=== PATIENT | female | born 2000 | race Caucasian/White ===

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

== ENCOUNTER 2020-11-14 22:02 | Emergency (ER) | payer MEDICAID, SELFPAY ==
[2020-11-14 22:15] VITALS: BP 160/92; PULSE 69; RESP 18; TEMP 36.9; O2SAT 97; BMI 39.6
--- NOTE | 2020-11-14 22:26 | XRR_ITS ---
PROCEDURE INFORMATION: Exam: XR Left Wrist Exam date and time: 11/14/2020 10:26 PM Age: 20 years old Clinical indication: Injury or trauma; Other: Pinning injury; Blunt trauma (contusions or hematomas); Elbow and wrist; Left; Patient HX: Patients arm impinged inbetween horse and gate. C/O pain. ; Additional info: Wrist injury and pain TECHNIQUE: Imaging protocol: XR Left wrist. Views: 3 or more views. COMPARISON: No relevant prior studies available. FINDINGS: Bones/joints: Normal. Soft tissues: Normal. XR/XR wrist LT min 3V* [id number] IMPRESSION: No acute findings.
--- NOTE | 2020-11-14 22:26 | XRR_ITS ---
PROCEDURE INFORMATION: Exam: XR Left Elbow Exam date and time: 11/14/2020 10:26 PM Age: 20 years old Clinical indication: Injury or trauma; Other: Pinning injury; Blunt trauma (contusions or hematomas); Elbow and wrist; Left; Patient HX: Patients arm impinged inbetween horse and gate. C/O pain. ; Additional info: Elbow pain and injury TECHNIQUE: Imaging protocol: XR Left elbow. Views: 3 or more views. COMPARISON: No relevant prior studies available. FINDINGS: Bones/joints: Normal. Soft tissues: Normal. XR/XR elbow LT min 3V* [id number] IMPRESSION: No acute findings.
--- NOTE | 2020-11-15 01:29 | XRR_ITS ---
PROCEDURE INFORMATION: Exam: XR Left Forearm Exam date and time: 11/15/2020 1:29 AM Age: 20 years old Clinical indication: Injury or trauma; Other: Impingement; Crushing; Arm, lower; Left; Patient HX: Arm pinned inbetween horse and gate. C/O mid forarm pain. TECHNIQUE: Imaging protocol: XR Left forearm. Views: 2 views. COMPARISON: CR ( EX, ) 11/14/2020 10:36 PM FINDINGS: Bones/joints: No acute fracture or dislocation. Soft tissues: Normal. XR/XR forearm LT 2V [id number] IMPRESSION: No acute fracture or dislocation.
--- NOTE | 2020-11-15 01:31 | W.ED.EXTPRO ---
HPI - Extremity Problem General: Chief complaint: Extremity Injury, Upper Stated complaint: LUE INJURY Time Seen by Provider: 11/15/20 00:34 Source: patient Mode of arrival: ambulatory Limitations: no limitations History of Present Illness: HPI Narrative: 20-year-old female states that horse had smashed her into a gait roughly 3 to 4 hours ago. States she has pain to her left wrist elbow and forearm. Does have some bruising to her forearm. She has full range of motion. States pain is 7 out of 10 worse with movement. Denies any other injuries. Associated symptoms: Deny chest pain, fever(s) or rash Review of Systems Const: Denies: fever(s), chills, body aches or change in appetite Eyes: Denies: blurry vision or eye discomfort ENMT: Denies: throat pain or dental pain Card: Denies: chest pain Resp: Denies: dyspnea GI: Denies: abdominal pain, nausea, vomiting or diarrhea : Denies: dysuria Musc: Reports: extremity pain Skin/Breast: Denies: rash Neuro: Denies: headache(s) Psych: Denies: depression Alfred/Lymph: Denies: easy bruising All/Imm: Denies: urticaria Physical Exam Const: COMMON NORMALS: no acute distress, patient oriented x3 and healthy appearing HENMT: COMMON NORMALS: normocephalic and atraumatic HEAD & SCALP: normocephalic and atraumatic Eye: COMMON NORMALS: Equal, round and reactive pupils present and EOMs intact bilaterally PUPIL: Yes Equal, round and reactive pupils present Neck/C-Spine: COMMON NORMALS: full ROM and supple Chest: COMMONS NORMALS: normal inspection of the chest and normal palpation of entire chest wall Resp: COMMON NORMALS: normal respiratory effort, No retractions, No use of accessory muscles and clear to auscultation bilaterally AUSCULTATION: clear to auscultation bilaterally Cardio: COMMON NORMALS: regular rate, regular rhythm and No murmurs present (Cardio) RATE: regular rate RHYTHM: regular rhythm GI: COMMON NORMALS: Normal to inspection, nondistended, normoactive bowel sounds present, Soft to palpation, non-tender and no masses PALPATION: Yes Soft to palpation Extremity: COMMON NORMALS: normal to inspection and full ROM OTHER: Slight bruising to forearm with some tenderness to touch no obvious deformity full range of motion Neuro: COMMON NORMALS: patient oriented x3, moves all extremities and no focal motor deficits Psych: COMMON NORMALS: mental status grossly normal, Normal thought process present and cooperative THOUGHT PROCESS: Normal thought process present Skin: COMMON NORMALS: no rashes or lesions noted and no wounds GENERAL SKIN EXAM: no rashes or lesions noted Course Vital Signs: Vital signs: Vital Signs Temperature 98.4 F 11/14/20 22:15 Pulse Rate 69 11/14/20 22:15 Respiratory Rate 18 11/14/20 22:15 Blood Pressure 160/92 11/14/20 22:15 Pulse Oximetry 97 11/14/20 22:15 MDM - Extremity (Nontraumatic) MDM Narrative: Medical decision making narrative: Patient presents with a bruise to her forearm. X-ray shows no fracture. We will Tonio wrap and place her on Naprosyn. She is stable for discharge and follow-up with PCP and return if worsening. Imaging Data^: X-ray left wrist: Attestation: I personally reviewed and interpreted this imaging study as follows: My impression: No acute ab malady X-ray left elbow: Attestation: I personally reviewed and interpreted this imaging study as follows: My impression: No acute abnormality X-ray left forearm: Attestation: I personally reviewed and interpreted this imaging study as follows: My impression: No acute abnormality Discharge Plan Discharge Patient Disposition: Home Clinical Impression: Contusion of forearm, left Qualifiers: Encounter type: initial encounter Qualified Code(s): S50.12XA - Contusion of left forearm, initial encounter Condition: Stable Prescriptions: New Naprosyn 500 mg tablet 500 mg PO BID PRN (Reason: pain) Qty: 20 RF: 0 Discharge Orders: Discharge ED (Routine); Ordered 11/15/20 Ordered By: Lindsay Gomez Referrals: Debi Umanzor FNP [Primary Care Provider] - 1-3 days Discharge Diet: Advance as tolerated Discharge Activity: Resume usual activity Patient Instructions: Contusion in Adults (ED) Coding Level of Care Code ED Home Health Cna for [facility]ac[facility] Ahuja Exam Comprehensive
[2020-11-15] MEDS: HYDROcodone-acetaminophen 7.5-325 mg Tablet 1 TAB PO (01:52)
[2020-11-15 02:30] VITALS: BP 117/77; PULSE 65; RESP 16; TEMP 36.9; O2SAT 97
== END 2020-11-15 02:30 | disposition home or self-care (01) ==
PROVIDERS: Emergency Provider Emergency Medicine; PCP Nurse Practitioner Family
DX: S50.12XA Contusion of left forearm, initial encounter (principal); W55.19XA Other contact with horse, initial encounter
CPT/HCPCS: 73080; 73090; 73110; 99283

== ENCOUNTER 2021-04-05 15:13 | Outpatient (CLI) | payer OTHER, MEDICAID, SELFPAY ==
--- NOTE | 2021-04-05 15:28 | US_ITS ---
WS: [id number] EARLY OBSTETRICAL ULTRASOUND (<14 WEEKS). HISTORY: VAGINAL BLEEDING, FIRST TRIMESTER COMPARISON: None available. Single intrauterine gestational sac is identified. Cardiac activity at 176 BPM. [place]-rump length dirk sures 2.4 cm which corresponds to a gestation of 9w1d. Normal-appearing yolk sac and amnion demonstra candelario. No subchorionic hemorrhage. No free fluid. Normal size ovaries with no mass. Small corpus luteum cyst associated with the LEFT ovary measures 1. 7 x 1.7 x 1.7 cm. Normal vascularity to both ovaries. US/US OB <= 14 weeks fetus [id number] IMPRESSION: 1. Single intrauterine gestation of 9 weeks 1 day with an EDC of 11/07/2021. 2. No complications. Normal heart rate.
== END 2021-04-05 15:14 | disposition home or self-care (01) ==
LOC: US 15:16
PROVIDERS: PCP Nurse Practitioner Family; Visit Provider Family Medicine
DX: O46.91 Antepartum hemorrhage, unspecified, first trimester (principal)
CPT/HCPCS: 76801

== ENCOUNTER 2021-04-22 08:51 | Emergency (ER) | payer OTHER, MEDICAID, SELFPAY ==
[2021-04-22 09:17] VITALS: BP 154/96; PULSE 123; RESP 18; O2SAT 100; BMI 41.5
[2021-04-22 09:22] VITALS: BP 106/85; PULSE 110; RESP 18; O2SAT 100
--- NOTE | 2021-04-22 09:36 | W.ED.GENADLT ---
HPI - General Adult General: Chief complaint: General Medical Stated complaint: 12 WKS PREG, H/A, N/V, HOT FLASHES Time Seen by Provider: 04/22/21 08:58 History of Present Illness: HPI narrative: 20-year-old female presents emergency room complaining of nausea and vomitingAlso having some hot flashes and headache. Per her report she is she is approximately 12 weeks . She denies any abdominal pain no vaginal bleeding or discharge no dysuria urgency or frequency she generally not felt well on and off last couple of days had hot flashes she is treated with Tylenol and showers that seems to have helped initially now she is having nausea and vomiting that is persisting. She denies hematochezia melena hematemesis coffee-ground emesis. Onset (ago): hour(s) Severity: mild Relieving factors: none Exacerbating factors: none Associated symptoms: Reports decreased appetite, malaise, nausea and vomiting; Deny chest pain, confusion, cough, diaphoresis, dyspnea, fevers/chills, headache(s), rash, palpitations, seizures, short of breath, syncope or weakness Treatments prior to arrival: none Review of Systems Const: Reports: malaise; Denies: diaphoresis ENMT: Denies: throat pain, ear or mastoid pain, nasal discharge or nasal congestion Card: Denies: chest pain, palpitations or syncope Resp: Denies: dyspnea GI: Reports: nausea and vomiting : Denies: flank pain, difficulty voiding, dysuria, urinary frequency or urinary urgency Skin/Breast: Denies: rash Neuro: Denies: headache(s) or confusion Physical Exam Const: COMMON NORMALS: no acute distress GENERAL APPEARANCE: cooperative and comfortable ORIENTATION/CONSCIOUSNESS: Yes awake, Yes oriented to person, Yes oriented to place and Yes oriented to time HENMT: COMMON NORMALS: normocephalic, atraumatic and hearing grossly normal bilaterally HEAD & SCALP: normocephalic and atraumatic Neck/C-Spine: COMMON NORMALS: no JVD Resp: COMMON NORMALS: normal respiratory effort, No retractions, No use of accessory muscles and clear to auscultation bilaterally AUSCULTATION: clear to auscultation bilaterally Cardio: COMMON NORMALS: no JVD, regular rate, regular rhythm and No murmurs present (Cardio) RATE: regular rate RHYTHM: regular rhythm GI: COMMON NORMALS: Soft to palpation and No hepatosplenomegaly present AUSCULTATION: Yes normoactive bowel sounds PALPATION: Yes Soft to palpation, No Tenderness to palpation present (GI), No Guarding due to palpation present (GI) and Yes No hepatosplenomegaly present Extremity: COMMON NORMALS: normal to inspection, capillary refill normal, no clubbing, cyanosis or edema, no calf tenderness and no pedal edema Neuro: SENSORIUM/ORIENTATION: Yes oriented to person, Yes oriented to place and Yes oriented to time Skin: COMMON NORMALS: no rashes or lesions noted GENERAL SKIN EXAM: no rashes or lesions noted Course Vital Signs: Vital signs: Vital Signs Pulse Rate 95 04/22/21 12:20 Respiratory Rate 18 04/22/21 12:20 Blood Pressure 130/75 04/22/21 12:20 Pulse Oximetry 100 04/22/21 12:20 MDM - General Adult MDM Narrative: Medical decision making narrative: Improved with fluids. We will switch her to diclegis and use promethazine as needed start with 2 tablets at at bedtime of the Diclegis. Clear liquid diet for next 24 to 48 hours and advance as tolerated follow-up with her primary care doctor next week return if has further problems. Lab Data: Labs: Lab Results 04/22/21 04/22/21 04/22/21 10:00 10:00 10:05 WBC 12.0 10^3/uL 10^3 /uL (4.5-13.0) RBC 4.30 10^6/uL 10^6 /uL (4.1-5.3) Hgb 11.7 g/dL g/dL (11.5-15.3) Hct 35.1 % L % (37.0-47.0) MCV 81.6 fl fl (81-99) MCH 27.2 pg L pg (28.0-34.0) MCHC 33.3 g/dL g/dL (30.0-36.0) RDW 13.9 % % (12.1-15.1) Plt Count 360 10^3/cmm 10^3 /cmm (130-400) MPV 9.0 fL fL (7.4-10.4) Neut % (Auto) 73.4 % % Lymph % (Auto) 18.0 % % [place] % (Auto) 6.0 % % Eos % (Auto) 1.8 % % Baso % (Auto) 0.3 % % Neut # (Auto) 8.81 10^3/uL H 10 ^3/uL (1.8-8.0) Lymph # (Auto) 2.2 10^3/uL 10^3/ uL (1.5-6.5) [place] # (Auto) 0.7 10^3/uL 10^3/ uL (0.2-0.9) Eos # (Auto) 0.2 10^3/uL 10^3/ uL (0.0-0.8) Baso # (Auto) 0.0 10^3/uL 10^3/ uL (0.0-0.1) Nucleated RBC % (a uto) 0 % % Nucleated RBCs # 0.0 /100WBC /100W BC Sodium 136 mmol/L mmol/L (136-145) Potassium 3.7 mmol/L mmol/L (3.5-5.1) Chloride 99 mmol/L mmol/L (98-107) Carbon Dioxide 25 mmol/L mmol/L (22-29) Anion Gap 15.7 (5-19) BUN 6 mg/dL mg/dL (6-20) Creatinine 0.4 mg/dL L mg/dL (0.5-0.9) GFR Calculation 203.5 mL/min H mL /min (90-130) Glucose 86 mg/dL mg/dL (65-115) Calculated Osmolal ity 279 mOsm/kg L mOs m/kg (285-295) Calcium 9.0 mg/dL mg/dL (8.5-10.5) Total Bilirubin 0.3 mg/dL mg/dL (0.15-1.2) AST 16 U/L U/L (0-32) ALT 23 U/L U/L (0-33) Alkaline Phosphata se 106 IU/L H IU/L (35-105) Total Protein 6.9 g/dL g/dL (6.6-8.7) Albumin 4.1 g/dL g/dL (3.5-5.2) Globulin 2.8 g/dL g/dL (1.3-4.6) Urine Color Straw (Yellow) Urine Appearance Hazy A (CLEAR) Urine pH 8 H (5-7) Ur Specific Gravit y 1.015 (1.005-1.030) Urine Protein Neg (Negative) Urine Glucose (UA) Norm (Normal) Urine Ketones Negative (Negative) Urine Blood Neg (Negative) Urine Nitrate Negative (Negative) Urine Bilirubin Neg (Negative) Prot Sulfosalicyli c Acd Negative (Negative) Urine Urobilinogen Norm mg/dL mg/dL (Negative) Ur Leukocyte Melisa ase Negative (Negative) Urine RBC None /hpf /hpf (0-2) Urine WBC Rare /hpf /hpf (0-5) Ur Squamous Epith Cells 0-4 /hpf H /hpf (0-5) Amorphous Sediment 3+ /hpf /hpf Urine Bacteria Trace /hpf /hpf (NONE) Discharge Plan Discharge Patient Disposition: Home Clinical Impression: Hyperemesis gravidarum Condition: Stable Prescriptions: New promethazine 25 mg tablet 25 mg PO Q6H PRN (Reason: nausea and vomiting) Qty: 20 RF: 0 Diclegis 10-10 mg tablet,delayed release (DR/EC) 2 tab PO .qhs Qty: 60 RF: 0 Discontinued naproxen [Naprosyn] 500 mg tablet 500 mg PO BID PRN (Reason: pain) Qty: 20 RF: 0 Discharge Orders: Discharge ED (Routine); Ordered 04/22/21 Ordered By: Fermín Bowens Referrals: Debi Umanzor FNP [Primary Care Provider] - Discharge Diet: Clear Liquid Discharge Activity: Increase activity as tolerated Patient Instructions: Opioid Safety Activity Restrictions/Additional Instructions: Clear liquid diet for 24 to 48 hours and advance as tolerated. Follow-up with your obstetrics physician within the next week. Coding Level of Care Code ED [employer] for [employer] Fwd Exam Comprehensive
[2021-04-22 10:33] LABS: Basophils % 0.3 %; Eosinophils # 0.2 10^3/uL (0.0-0.8); Eosinophils % 1.8 %; Hematocrit 35.1 % (37.0-47.0); Hemoglobin 11.7 g/dL (11.5-15.3); Lymphocytes # 2.2 10^3/uL (1.5-6.5); Mean Corpuscular HGB Conc 33.3 g/dL (30.0-36.0); Mean Corpuscular Hemoglobin 27.2 pg (28.0-34.0); Mean Corpuscular Volume 81.6 fl (81-99); Monocytes # 0.7 10^3/uL (0.2-0.9); Neutrophils # 8.81 10^3/uL (1.8-8.0); Neutrophils % 73.4 %; Nucleated Red Blood Cells % 0 %; Platelet Count 360 10^3/cmm (130-400); Red Cell Distribution Width 13.9 % (12.1-15.1)
[2021-04-22] MEDS: sodium chloride 0.9% 1,000 ML 999 ML IV ×2 (10:40→12:14)
[2021-04-22] MEDS: promethazine 25 mg/mL SDV 1 mL IM (10:40)
[2021-04-22 10:44] LABS: Bilirubin Urine Neg (Negative); Blood Urine Neg (Negative); Glucose Urine UA Norm (Normal); Ketones Urine Negative (Negative); Nitrate Urine Negative (Negative); Protein Urine Neg (Negative); Specific Gravity, Urine 1.015 (1.005-1.030); Sulfosalicylic Acid Urine Negative (Negative); Urine Appearance Hazy (CLEAR); Urine Color Straw (Yellow); pH Urine 8 (5-7)
[2021-04-22 10:45] LABS: Add Urine Culture? No; Add Urine Microscopic? YES; Amorphous Sediment Urine 3+ /hpf; Bacteria Urine TRACE /hpf; Leukocyte Esterase Urine Negative (Negative); Squamous Epithelial Cell Urine 0-4 /hpf (0-5); Urobilinogen Urine Norm (Negative); WBC Urine RARE /hpf (0-5)
[2021-04-22 10:51] LABS: Alanine Aminotransferase 23 U/L (0-33); Albumin Level 4.1 g/dL (3.5-5.2); Alkaline Phosphatase 106 IU/L (35-105); Anion Gap 15.7 (5-19); Aspartate Amino Transferase 16 U/L (0-32); Blood Urea Nitrogen 6 mg/dL (6-20); Carbon Dioxide 25 mmol/L (22-29); Chloride 99 mmol/L (98-107); Globulin 2.8 g/dL (1.3-4.6); Glomerular Filtration Rate 203.5 mL/min (90-130); Glucose 86 mg/dL (65-115); Osmolality Calculated 279 mOsm/kg (285-295); Potassium 3.7 mmol/L (3.5-5.1); Sodium 136 mmol/L (136-145); Total Bilirubin 0.3 mg/dL (0.15-1.2); Total Protein 6.9 g/dL (6.6-8.7)
[2021-04-22 12:20] VITALS: BP 130/75; PULSE 95; RESP 18; O2SAT 100
== END 2021-04-22 13:01 | disposition home or self-care (01) ==
PROVIDERS: Emergency Provider Family Medicine; PCP Nurse Practitioner Family
DX: O21.0 Mild hyperemesis gravidarum (principal); Z3A.12 12 weeks gestation of pregnancy
CPT/HCPCS: 80053; 81001; 85025; 96360; 96372; 99283; J2550; J7030

== ENCOUNTER 2021-05-09 16:45 | Emergency (ER) | payer MEDICAID, SELFPAY ==
[2021-05-09 16:56] VITALS: BP 119/80; PULSE 86; RESP 15; TEMP 36.8; O2SAT 97; BMI 42.5
--- NOTE | 2021-05-09 17:13 | W.ED.NAVMDI ---
HPI - Nausea/Vomiting/Diarrhea General: Chief complaint: Nausea/Vomiting/Diarrhea Stated complaint: 14 WKS PREG VOMITING 6 TIMES IN 3 HRS Time Seen by Provider: 05/09/21 17:09 History of Present Illness: HPI Narrative: Patient is a 20-year-old female at 14 weeks gestation and comes to the ED with nausea and vomiting. She was seen in the ED on April 22 for same complaint and diagnosed with hyperemesis gravidarum. Symptoms started yesterday. She threw up right before going to bed last night. She woke up this morning and had nausea and vomiting and has not been able to keep any food or fluids down. Denies any other symptoms such as fever, chills, abdominal pain, upper respiratory symptoms, chest pain, bladder or bowel symptoms. Patient denies any vaginal bleeding or vaginal discharge. She denies any related concerns. Associated nausea: Yes Associated symtoms: Reports nausea; Denies change in vision, chest pain, dysuria, fatigue, headache(s) or palpitations Review of Systems Const: Denies: fever(s), chills or fatigue Eyes: Denies: change in vision or eye discomfort ENMT: Denies: throat pain, odynophagia, nasal discharge or nasal congestion Card: Denies: chest pain, palpitations, edema, swelling of feet/ankles, dyspnea on exertion or orthopnea Resp: Denies: dyspnea, productive cough or non-productive cough GI: Reports: nausea and vomiting; Denies: abdominal pain, diarrhea, constipation or hematochezia : Denies: flank pain, dysuria or hematuria Musc: Denies: neck pain, back pain or extremity swelling Skin/Breast: Denies: rash or new lesions Neuro: Denies: headache(s), numbness in extremities or weakness in extremities Physical Exam Const: COMMON NORMALS: no acute distress, patient oriented x3 and alert GENERAL APPEARANCE: cooperative and comfortable HENMT: COMMON NORMALS: normocephalic HEAD & SCALP: normocephalic MOUTH: Normal oral and palatal mucosa present THROAT: posterior oropharynx normal and uvula midline Neck/C-Spine: COMMON NORMALS: supple GENERAL: Yes normal visual inspection Resp: COMMON NORMALS: normal respiratory effort, No retractions, No use of accessory muscles and clear to auscultation bilaterally AUSCULTATION: clear to auscultation bilaterally Cardio: COMMON NORMALS: regular rate, regular rhythm, S1 normal heart sound present, S2 normal heart sound present, No gallops present (Cardio), No clicks present (Cardio), No murmurs present (Cardio) and Peripheral pulses 2+ throughout RATE: regular rate RHYTHM: regular rhythm HEART SOUNDS: S1 normal heart sound present and S2 normal heart sound present PERIPHERAL PULSES: Peripheral pulses 2+ throughout GI: COMMON NORMALS: Normal to inspection, nondistended, normoactive bowel sounds present, Soft to palpation, non-tender and no masses PALPATION: Yes Soft to palpation : COMMON NORMALS: Yes no CVA tenderness BLADDER/KIDNEY EXAM: Yes no CVA tenderness Back/Pelvis: COMMON NORMALS: no CVA tenderness Extremity: COMMON NORMALS: normal to inspection Neuro: COMMON NORMALS: patient oriented x3 and moves all extremities SENSORIUM/ORIENTATION: Yes alert Skin: GENERAL SKIN EXAM: dry skin Course ED course: heart tones were detected with doppler- heart rate was at 128. Reevaluation(s): Reevaluation #1: Patient says her nausea and vomiting are improved and controlled now after getting IV fluids and Reglan. Patient was able to tolerate p.o. crackers and Sprite while here in the ED. She had no other episodes of emesis since getting fluids and nausea meds. Patient appears stable for discharge home and is ready to go home and rest. Time: 20:00 Vital Signs: Vital signs: Vital Signs Temperature 98.4 F 05/09/21 20:19 Pulse Rate 84 05/09/21 20:19 Respiratory Rate 18 05/09/21 20:19 Blood Pressure 118/67 05/09/21 20:19 Pulse Oximetry 98 05/09/21 20:19 MDM - Nausea/Vomiting/Diarrhea MDM Narrative: Medical decision making narrative: Patient is a 20-year-old female comes to the ED with nausea and vomiting. She is 14 weeks and was seen here back on April 22 and was diagnosed with hyperemesis gravidarum. Today she woke up and was unable to keep any food or fluids down and had multiple episodes of emesis. Denies any abdominal pain, vaginal bleeding, vaginal discharge. Vitals are stable. Exam of patient is benign and Doppler was used and heart tones were detected at a rate of around 128 bpm. White blood cell count 16.6 with rest of CBC and CMP were unremarkable. UA showed no signs of any infection. Patient was given 1 L IV fluids and Reglan and her symptoms improved greatly. She was given some p.o. crackers and fluids and she was able to keep those down and had no other episodes of emesis since being treated here in the ED. Patient was stable for discharge and diagnosed with hyperemesis gravidarum. She has a prescription for promethazine at home that she can use for any nausea. She was told to follow-up with her PCP or OB doctor in the next week for reevaluation. Return to ED precautions given. Patient understood and agreed with plan. Lab Data: Attestation: I reviewed the patient's lab results. Labs: Lab Results 05/09/21 05/09/21 05/09/21 17:22 17:22 19:34 WBC 16.6 10^3/uL H 10 ^3/uL (4.5-13.0) RBC 4.37 10^6/uL 10^6 /uL (4.1-5.3) Hgb 12.0 g/dL g/dL (11.5-15.3) Hct 35.3 % L % (37.0-47.0) MCV 80.8 fl L fl (81-99) MCH 27.5 pg L pg (28.0-34.0) MCHC 34.0 g/dL g/dL (30.0-36.0) RDW 13.9 % % (12.1-15.1) Plt Count 381 10^3/cmm 10^3 /cmm (130-400) MPV 8.8 fL fL (7.4-10.4) Neut % (Auto) 75.2 % % Lymph % (Auto) 17.7 % % [place] % (Auto) 4.9 % % Eos % (Auto) 1.3 % % Baso % (Auto) 0.3 % % Neut # (Auto) 12.50 10^3/uL H 1 0^3/uL (1.8-8.0) Lymph # (Auto) 2.9 10^3/uL 10^3/ uL (1.5-6.5) [place] # (Auto) 0.8 10^3/uL 10^3/ uL (0.2-0.9) Eos # (Auto) 0.2 10^3/uL 10^3/ uL (0.0-0.8) Baso # (Auto) 0.1 10^3/uL 10^3/ uL (0.0-0.1) Nucleated RBC % (a uto) 0 % % Nucleated RBCs # 0.0 /100WBC /100W BC Sodium 137 mmol/L mmol/L (136-145) Potassium 3.5 mmol/L mmol/L (3.5-5.1) Chloride 102 mmol/L mmol/L (98-107) Carbon Dioxide 19 mmol/L L mmol/ L (22-29) Anion Gap 19.5 H (5-19) BUN 6 mg/dL mg/dL (6-20) Creatinine 0.3 mg/dL L mg/dL (0.5-0.9) GFR Calculation 283.6 mL/min H mL /min (90-130) Glucose 84 mg/dL mg/dL (65-115) Calculated Osmolal ity 281 mOsm/kg L mOs m/kg (285-295) Calcium 8.6 mg/dL mg/dL (8.5-10.5) Total Bilirubin 0.2 mg/dL mg/dL (0.15-1.2) AST 12 U/L U/L (0-32) ALT 17 U/L U/L (0-33) Alkaline Phosphata se 95 IU/L IU/L (35-105) Total Protein 7.4 g/dL g/dL (6.6-8.7) Albumin 4.1 g/dL g/dL (3.5-5.2) Globulin 3.3 g/dL g/dL (1.3-4.6) Urine Color Yellow (Yellow) Urine Appearance Clear (CLEAR) Urine pH 5 (5-7) Ur Specific Gravit y 1.005 (1.005-1.030) Urine Protein Neg (Negative) Urine Glucose (UA) Norm (Normal) Urine Ketones Negative (Negative) Urine Blood Neg (Negative) Urine Nitrate Negative (Negative) Urine Bilirubin Neg (Negative) Urine Urobilinogen Norm mg/dL mg/dL (Negative) Ur Leukocyte Melisa ase Negative (Negative) Discharge Plan Discharge Patient Disposition: Home Clinical Impression: Hyperemesis gravidarum Condition: Stable Prescriptions: No Action promethazine 25 mg tablet 25 mg PO Q6H PRN (Reason: nausea and vomiting) Qty: 20 RF: 0 Diclegis 10-10 mg tablet,delayed release (DR/EC) 2 tab PO .qhs Qty: 60 RF: 0 Discharge Orders: Discharge ED (Routine); Ordered 05/09/21 Ordered By: Jesus Lopez Referrals: Debi Umanzor FNP [Primary Care Provider] - Discharge Diet: Regular Discharge Activity: Increase activity as tolerated Patient Instructions: Hyperemesis Gravidarum (ED) Activity Restrictions/Additional Instructions: Follow-up with medical provider as directed in 5 to 7 days for reevaluation. Continue drinking plenty of fluids and staying hydrated. Take medications as prescribed. Return to the ER or your medical provider if condition worsens. Please read and understand discharge instructions. Thank you for choosing [facility] for your healthcare needs today. Please realize this is an emergency room and that we are providing you with a medical screening exam and this may not be complete and all inclusive of all the testing and or work up that you may need to determine your ailment or severity of your illness. It is very important that you follow up as instructed or that you return to the Emergency Department should you have concerns or if your condition changes or worsens in any way. Coding Level of Care Code ED [employer] for [employer] Fwd Exam Comprehensive
[2021-05-09 17:31] LABS: Basophils # 0.1 10^3/uL (0.0-0.1); Basophils % 0.3 %; Eosinophils # 0.2 10^3/uL (0.0-0.8); Eosinophils % 1.3 %; Hematocrit 35.3 % (37.0-47.0); Lymphocytes # 2.9 10^3/uL (1.5-6.5); Lymphocytes % 17.7 %; Mean Corpuscular Hemoglobin 27.5 pg (28.0-34.0); Mean Corpuscular Volume 80.8 fl (81-99); Mean Platelet Volume 8.8 fL (7.4-10.4); Monocytes # 0.8 10^3/uL (0.2-0.9); Monocytes % 4.9 %; Neutrophils % 75.2 %; Nucleated Red Blood Cells % 0 %; Platelet Count 381 10^3/cmm (130-400); Red Blood Count 4.37 10^6/uL (4.1-5.3); Red Cell Distribution Width 13.9 % (12.1-15.1); White Blood Count 16.6 10^3/uL (4.5-13.0)
[2021-05-09] MEDS: metoclopramide 5 mg/mL SDV 2 mL 10 MG IVP (17:36)
[2021-05-09] MEDS: sodium chloride 0.9% 1,000 ML 999 ML IV ×2 (17:36→19:16)
[2021-05-09 17:55] LABS: Alanine Aminotransferase 17 U/L (0-33); Albumin Level 4.1 g/dL (3.5-5.2); Alkaline Phosphatase 95 IU/L (35-105); Anion Gap 19.5 (5-19); Aspartate Amino Transferase 12 U/L (0-32); Blood Urea Nitrogen 6 mg/dL (6-20); Calcium 8.6 mg/dL (8.5-10.5); Carbon Dioxide 19 mmol/L (22-29); Chloride 102 mmol/L (98-107); Globulin 3.3 g/dL (1.3-4.6); Glomerular Filtration Rate 283.6 mL/min (90-130); Glucose 84 mg/dL (65-115); Osmolality Calculated 281 mOsm/kg (285-295); Potassium 3.5 mmol/L (3.5-5.1); Sodium 137 mmol/L (136-145); Total Bilirubin 0.2 mg/dL (0.15-1.2); Total Protein 7.4 g/dL (6.6-8.7)
--- NOTE | 2021-05-09 19:15 | PC.NURSE ---
patient given shelton and crackers for PO challenge. Patient denies nausea/vomiting episodes at this time.
[2021-05-09 19:41] LABS: Add Urine Microscopic? NO; Charge for UA Resulting for Rev
[2021-05-09 19:46] LABS: Bilirubin Urine Neg (Negative); Blood Urine Neg (Negative); Glucose Urine UA Norm (Normal); Ketones Urine Negative (Negative); Leukocyte Esterase Urine Negative (Negative); Nitrate Urine Negative (Negative); Protein Urine Neg (Negative); Specific Gravity, Urine 1.005 (1.005-1.030); Urine Appearance Clear (CLEAR); Urine Color Yellow (Yellow); Urobilinogen Urine Norm (Negative); pH Urine 5 (5-7)
[2021-05-09] MEDS: ondansetron 2 mg/ML SDV 2 mL 4 MG IVP (20:17)
[2021-05-09 20:19] VITALS: BP 118/67; PULSE 84; PULSE 86; RESP 18; TEMP 36.9; O2SAT 98
== END 2021-05-09 20:21 | disposition home or self-care (01) ==
PROVIDERS: Physician Assistant; Emergency Provider Physician Assistant; PCP Nurse Practitioner Family
DX: O21.0 Mild hyperemesis gravidarum (principal); Z3A.14 14 weeks gestation of pregnancy
CPT/HCPCS: 80053; 81003; 85025; 96361; 96374; 96375; 99283; J2405; J2765; J7030

== ENCOUNTER 2021-08-06 09:30 | Outpatient (CLI) | payer MEDICAID, SELFPAY ==
[2021-08-06 09:30] VITALS: BMI 43.4
[2021-08-06 10:03] VITALS: BP 120/74; PULSE 96
[2021-08-06 10:13] VITALS: BP 132/71; PULSE 95
[2021-08-06 10:25] LABS: Actim Prom Negative
[2021-08-06 10:28] VITALS: BP 121/61; PULSE 91
== END 2021-08-06 10:50 | disposition home or self-care (01) ==
LOC: OPOB 09:36 → OBGYN 09:37
PROVIDERS: PCP Nurse Practitioner Family; Visit Provider Family Medicine
DX: O26.899 Other specified pregnancy related conditions, unspecified trimester (principal); Z3A.00 Weeks of gestation of pregnancy not specified
CPT/HCPCS: 59025; 84112; 99211

== ENCOUNTER 2021-08-29 06:42 | Outpatient (CLI) | payer MEDICAID, SELFPAY ==
--- NOTE | 2021-08-29 07:03 | US_ITS ---
WS: [id number] ULTRASOUND OB FOCUSED HISTORY: F/U US FOR LOW LYING Placenta, facial PROFILE, SPINE, COMPARISON: 06/21/2021 Single intrauterine gestation is identified in cephalic position. The cervix is closed at 3.0 cm. Fet al profile continues to be limited. Reevaluation of the spine demonstrates no abnormality but a lso limited. There is a three-vessel cord. Placenta ends well above the internal cervical os. Placent a is posterior. Visually the amount of amniotic fluid is normal. Facial profile obscured by position of the fetus. heart rate at 144 BPM. US/[place] [id number] IMPRESSION: 1. Continued reevaluation of the anatomy due to body habitus. 2. Three-vessel cord is identified. 3. Placenta posterior with no previa or low-lying placenta. 4. No spine abnormality detected but limited. Facial profile not visuali zed.
== END 2021-08-29 06:43 | disposition home or self-care (01) ==
LOC: RAD 06:42
PROVIDERS: PCP Nurse Practitioner Family; Visit Provider Family Medicine
DX: O44.00 Complete placenta previa NOS or without hemorrhage, unspecified trimester (principal)
CPT/HCPCS: 76816

== ENCOUNTER 2021-10-19 06:00 | Day surgery (SDC) | payer OTHER, MEDICAID, SELFPAY ==
--- NOTE | 2021-10-19 14:25 | P.ANESASSM_ITS ---
Pre-Anesthetic Assessment Height/Weight: Height 1.55 m Preop Diagnosis: Planning of labor analgesia Labor epidural Familial anesthetic complications: None Was Beta Tori taken within 24 hours: N/A Was Clonidine taken within 24 hours: N/A Last intake: Full stomach Social No alcohol and No tobacco Exam alert, oriented x 3, clear to auscultation bilaterally and regular rate & rhythm Airway Submandibular: within normal limits Cervical ROM: within normal limits Mallampati: Class II Dentition: full History/ROS No significant history except as noted and No significant complaints Pulmonary None reported CV/HEM None reported None reported Hepatic None reported GI Gastroesophageal Reflux Disease Metabolic None reported Musc/skel None reported Neuropsych None reported Anesthetic Plan ASA status: 2 Anesthesia: Anesthesia Evaluation, Eval. for regional block, General and Regional (specify below) (Labor epidural) Other: I discussed with patient the risk and benefits of labor epidural including PDPH, hypotension, back pain/discomfort/bruising, catastrophic nerve injury including paralysis, abscess, hematoma, failed block, one sided block, and LAST. Patient consents to labor epidural and in case of emergency consents to general anesthesia. Risk of > 500 ml blood loss (7ml/kg in children): No Other Pertinent Information Per patient hx of placenta previa, now resolved Medications/Allergies Home Medications Medication Instructions Recorded Confirmed Last Taken Type doxylamine 10 mg-pyridoxine (vit 2 tab PO .qhs #60 tab 04/22/21 Unknown Rx B6) 10 mg tablet,delayed release (Diclegis) promethazine 25 mg tablet 25 mg PO Q6H PRN #20 tab 04/22/21 Unknown Rx Allergies Allergy/AdvReac Type Severity Reaction Status Date / Time Latex, Natural Rubber Allergy ALGY-Rash Verified 11/14/20 22:20 Data Anesthesia Cardiac Studies: 2 No Data to Display
== END 2021-10-19 06:01 | disposition home or self-care (01) ==
LOC: OPS 11-02 09:23
PROVIDERS: PCP Nurse Practitioner Family; Visit Provider Family Medicine
DX: Z34.00 Encounter for supervision of normal first pregnancy, unspecified trimester (principal); Z3A.00 Weeks of gestation of pregnancy not specified
CPT/HCPCS: 87081

== ENCOUNTER → 2021-11-01 08:09 | Outpatient (BNVA) | payer OTHER, MEDICAID, SELFPAY | PROVIDERS: PCP Nurse Practitioner Family; Visit Provider Family Medicine | DX: O23.40 Unspecified infection of urinary tract in pregnancy, unspecified trimester (principal); Z3A.00 Weeks of gestation of pregnancy not specified | CPT/HCPCS: 81000 ==

== ENCOUNTER 2021-11-08 02:22 | Inpatient (IN) | payer OTHER, MEDICAID, SELFPAY ==
[2021-11-07] VITALS (27 sets, daily range): BP systolic 130–170; BP diastolic 59–99; PULSE 81–101; RESP 14–16; TEMP 36.6; BMI 44.9
[2021-11-07 19:04] LABS: Basophils % 0.2 %; Eosinophils # 0.1 10^3/uL (0.0-0.8); Hematocrit 34.7 % (37.0-47.0); Hemoglobin 11.8 g/dL (11.5-15.3); Lymphocytes # 2.2 10^3/uL (0.8-4.8); Lymphocytes % 16.7 %; Mean Corpuscular Hemoglobin 27.3 pg (28.0-34.0); Mean Corpuscular Volume 80.1 fl (81-99); Mean Platelet Volume 10.2 fL (7.4-10.4); Monocytes # 0.7 10^3/uL (0.2-0.9); Monocytes % 5.1 %; Neutrophils # 10.14 10^3/uL (1.8-7.7); Neutrophils % 76.5 %; Nucleated Red Blood Cells % 0 %; Platelet Count 291 10^3/cmm (130-400); Red Blood Count 4.33 10^6/uL (4.1-5.3); Red Cell Distribution Width 13.8 % (12.1-15.1); White Blood Count 13.3 10^3/uL (4.0-10.0)
--- NOTE | 2021-11-07 20:03 | PM.HP ---
Providers/Chief Complaint Primary Care Provider: CANDIDA Sloan Chief Complaint: induction History of Present Illness Cady Samson is a 21 year old at 40.0 weeks gestation by 9-week ultrasound with unknown LMP. Her is complicated by first trimester bleeding, low progesterone, obesity, history of chlamydia, now with gestational hypertension. The patient presented to labor and delivery for a scheduled induction of labor. She had some mild elevation of blood pressure at her last appointment and we discussed induction of labor at that time. She declined as she would like to have gone into labor on her own. we set up this induction date in she had not delivered yet. Her blood pressures at home have been in the 130s to 150s systolic. She has had mild nausea, however no headaches or flashes of light. She denies any chest pains, shortness of breath, fever, cough, dysuria, vaginal bleeding. Medications/Allergies Home Medications Medication Instructions Recorded Confirmed Last Taken Type doxylamine 10 mg-pyridoxine (vit 2 tab PO .qhs #60 tab 04/22/21 Unknown Rx B6) 10 mg tablet,delayed release (Diclegis) promethazine 25 mg tablet 25 mg PO Q6H PRN #20 tab 04/22/21 Unknown Rx Allergies Allergy/AdvReac Type Severity Reaction Status Date / Time Latex, Natural Rubber Allergy ALGY-Rash Verified 11/14/20 22:20 PFSH Acute PFSH: Medical History (Updated 11/07/21 @ 20:08 by Jesus Lozano MD) History of chlamydia Family History (Updated 11/07/21 @ 20:09 by Jesus Lozano MD) Other Diabetes Hypertension Social History (Updated 11/07/21 @ 20:08 by Jesus Lozano MD) Smoking and tobacco status: former smoker Alcohol intake: never Substance/Drug Use: never Female Reproductive History: : 1 Vitals/I&O/Wt Last Vital Signs Temp 97.8 F 11/07/21 18:49 Pulse 91 11/07/21 19:55 Resp 16 11/07/21 19:43 BP 166/99 11/07/21 19:55 Weight last 48 hrs Weight 238 lb Physical Exam Narrative: General: Alert and oriented x3 Eyes: Pupils equal round and reactive to light and accommodation Mouth: Mucous membranes moist, pharynx non-erythematous Cardiac: Regular rate and rhythm without murmurs Lungs: Clear to auscultation bilaterally without wheezes, crackles or rhonchi Abdomen: Soft, non-tender, fundus consistent with gestational age Extremities: Trace edema in the bilateral lower extremities Data : 11/07/21 18:40 A&P Assessment and plan (1) Obesity: Status: Acute (2) Gestational hypertension: Status: Acute (3) Intrauterine : Status: Acute Plan The patient's initial blood pressures are elevated. We will start the antihypertensive protocol and if they are staying in the severe range, we will plan to treat and have to consider treatment with IV magnesium. The patient is currently 50/-3/vertex. We will plan to start the patient on Cytotec for induction of labor. The patient is GBS negative. We did discuss the benefits of using vitamin K, erythromycin and hepatitis B vaccines after delivery for the infant. She will think about these. All questions were answered. The patient is in agreement with current plan of care. Attestations Medical Necessity Statement*: The patient will be here for greater than 2 midnights due to routine intrapartum and management of labor and delivery. Coding Level of Care Code Acute Communications Engineering Technician for Chg Fwd Diagnoses Obesity E66.9 Gestational hypertension O13.9 Intrauterine Z34.90
[2021-11-07] MEDS: labetalol 5 mg/mL SDV 20mL 20 MG IVP (20:37)
[2021-11-07 20:58] LABS: Urine Creatinine 128 mg/dL (28-217)
[2021-11-07 21:01] LABS: UPRO/UCREAT Ratio 0.23 mg/mg CR; Urine Protein Random 29 mg/dL
[2021-11-07] MEDS: dextrose 5%-lactated ringers 1,000 ML 125 ML IV (21:09)
[2021-11-07] MEDS: miSOPROStol 100 mcg tablet 25 MCG VAGINAL (21:10)
[2021-11-07 21:15] LABS: Alanine Aminotransferase 15 U/L (0-33); Albumin Level 3.4 g/dL (3.5-5.2); Alkaline Phosphatase 602 IU/L (35-105); Anion Gap 17.4 (5-19); Aspartate Amino Transferase 16 U/L (0-32); Blood Urea Nitrogen 15 mg/dL (6-20); Calcium 9.7 mg/dL (8.5-10.5); Carbon Dioxide 20 mmol/L (22-29); Chloride 103 mmol/L (98-107); Globulin 3.8 g/dL (1.3-4.6); Glomerular Filtration Rate 155.7 mL/min (90-130); Glucose 94 mg/dL (65-115); Osmolality Calculated 283 mOsm/kg (285-295); Potassium 4.4 mmol/L (3.5-5.1); Sodium 136 mmol/L (136-145); Total Bilirubin 0.2 mg/dL (0.15-1.2); Total Protein 7.2 g/dL (6.6-8.7); Uric Acid 5.8 mg/dL (2.4-5.7)
[2021-11-07] MEDS: alum-mag-hydroxide-sime 30 mL UDC PO (23:14)
[2021-11-08] VITALS (82 sets, daily range): BP systolic 107–191; BP diastolic 55–108; PULSE 17–110; RESP 16–18; TEMP 35.9–36.7; O2SAT 89–100
[2021-11-08] MEDS: miSOPROStol 100 mcg tablet 25 MCG VAGINAL ×2 (01:20→05:50)
--- NOTE | 2021-11-08 08:26 | P.PN_ITS ---
Subjective Subjective: The patient has been feeling well overnight. She had a mild headache that self resolved. She denies any chest pains or shortness of breath. She is feeling a few of her contractions, however not all of them. She received her third dose of Cytotec around 5:15 AM this morning. She has had no leakage of fluid. Vitals/I&O/Wt Last Vital Signs Temp 97.3 F L 11/08/21 07:52 Pulse 74 11/08/21 07:52 Resp 16 11/08/21 05:30 BP 158/86 11/08/21 07:52 11/07/21 11/08/21 11/08/21 22:59 06:59 14:59 Intake Total 131.25 / 131.25 Balance 131.25 / 131.25 Weight last 48 hrs Weight 238 lb Physical Exam Narrative: General: Alert and oriented x3 Mouth: Mucous membranes moist, pharynx non-erythematous Cardiac: Regular rate and rhythm without murmurs Lungs: Clear to auscultation bilaterally without wheezes, crackles or rhonchi Abdomen: Soft, non-tender, fundus consistent with gestational age Extremities: Trace edema in the bilateral lower extremities Data : 11/07/21 18:40 11/07/21 20:10 A&P Assessment and plan (1) Obesity: Status: Acute (2) Gestational hypertension: The patient received 1 dose of labetalol for persistent elevated blood pressure above 160 systolic. She has not needed further dosing. We will continue to monitor. Her labs show signs of mild elevation of uric acid and alk phos. Her urine protein creatinine ratio is elevated, however not enough to be consistent with preeclampsia at this point. We will plan to treat with IV magnesium if she is having persistent need for IV labetalol. Status: Acute (3) Intrauterine : Status: Acute Plan The patient is doing well at this time she has not made significant change with the first 2 doses of Cytotec. We will see if she is made change after the third dose. If not, depending on her Vick score, we will either plan to place a Hanks bulb if possible or start IV Pitocin. The patient's questions were answered. She is in agreement with current plan of care. Attestations Medical Necessity Statement*: The patient will be here for greater than 2 midnights due to routine intrapartum and management of labor and delivery. Coding Level of Care Code Acute Railroad Operating Engineer for Chg Fwd Diagnoses Obesity E66.9 Gestational hypertension O13.9 Intrauterine Z34.90
[2021-11-08] MEDS: ondansetron 2 mg/ML SDV 2 mL 4 MG IVP ×2 (08:33→21:46)
[2021-11-08] MEDS: alum-mag-hydroxide-sime 30 mL UDC PO ×3 (08:40→21:46)
[2021-11-08] MEDS: oxytocin 30 UNIT/500 ML BAG IV (10:58)
[2021-11-08] MEDS: lactated ringers 1,000 ML 999 ML IV (14:47)
--- NOTE | 2021-11-08 16:12 | P.ANESUD_ITS ---
Pre-Anesthetic Update Pre-Anesthetic Assessment: Date of Surgery/Procedure: 11/08/21 Preop Maria De Jesus gnosis: Planning of labor analgesia Proposed Procedure: epidural Any changes to Pre-Anesthetic Assessment?: No Last Intake: > 8hrs Labs Last 48hrs: Short CBC 11/07/21 Range/Units 18:40 WBC 13.3 H (4.0-10.0) 10^3/ uL Hgb 11.8 (11.5-15.3) g/dL Hct 34.7 L (37.0-47.0) % MCV 80.1 L (81-99) fl Plt Count 291 (130-400) 10^3/c mm Neut % (Auto) 76.5 % Neut # (Auto) 10.14 H (1.8-7.7) 10^3/u L BMP 11/07/21 20:10 Sodium 136 Potassium 4.4 Chloride 103 Carbon Dioxide 20 L BUN 15 Creatinine 0.5 Glucose 94 Calcium 9.7 Liver Function 11/07/21 Range/Units 20:10 Total Bilirubin 0.2 (0.15-1.2) mg/dL AST 16 (0-32) U/L ALT 15 (0-33) U/L Alkaline Phosphata se 602 H (35-105) IU/L Albumin 3.4 L (3.5-5.2) g/dL Vitals: Temperature 97.9 F 11/08/21 13:43 Temperature Source Oral 11/07/21 18:49 Pulse Rate 99 11/08/21 16:03 Pulse Rhythm 11/07/21 18:00 Pulse Strength 3+ Normal 11/07/21 18:00 Respiratory Rate 16 11/08/21 05:30 Respiratory Effort Non-Labored 11/07/21 18:00 Respiratory Depth Normal 11/07/21 18:00 Respiratory Patter n 11/07/21 18:00 Blood Pressure 130/65 11/08/21 16:03 Pulse Oximetry 99 11/08/21 15:46 Oxygen Delivery Me thod 11/07/21 18:00 Exam: Pre-Anes Outpt Exam: alert, oriented x 3, clear to auscultation bilaterally and regular rate & rhythm Cardiac Studies: No Data to Display
--- NOTE | 2021-11-08 16:12 | ANES.PROC ---
Anesthesia Procedures Procedure/Date: 11/08/21 Epidural: Time Out Performed: Yes Consents Signed: Procedure Consent Consent: requested by attending/covering physician, from patient, risks and benefits reviewed and patient agrees to proceed Lumbar Level: L3-L4 Epidural position: sitting Epidural procedure: sterile prep of area, 1% lidocaine to numb the area, 18 g needle, negative for paresthesia passed, neg for paresthesia, test dose given, 1.5% xylocaine 1:200k epi (5), 0.2% Ropivacaine bolus ml (5), placed PCEA, no systemic response, sterile dressing applied, L.U.D. no apparent complications and 0.2% Ropiavacaine @ mls/hr (13) Additional Comments: MADELINE at 6 cm, threaded to 12 cm at skin. Patient reported decreased pain of contractions following bolus
[2021-11-08] MEDS: dextrose 5%-lactated ringers 1,000 ML 125 ML IV (18:59)
[2021-11-09] VITALS (40 sets, daily range): BP systolic 111–181; BP diastolic 56–92; PULSE 73–144; RESP 17; TEMP 36.5–37; O2SAT 100
[2021-11-09] MEDS: dextrose 5%-lactated ringers 1,000 ML 125 ML IV (00:38)
[2021-11-09] MEDS: lactated ringers 1,000 ML 999 ML IV (03:45)
[2021-11-09] MEDS: lidocaine 2% INJ 20 mL INJECTION (04:21)
--- NOTE | 2021-11-09 04:50 | PM.DELIVERY ---
Delivery Note: Date of delivery: November 09, 2021 Pre-delivery diagnoses: 1. Intrauterine at 40.2 weeks gestation 2. First trimester bleeding 3. Low progesterone and early first trimester 4. Obesity 5. History of chlamydia 6. Gestational hypertension Post-delivery diagnoses: 1. Intrauterine status post vacuum-assisted vaginal delivery at 40.2 weeks gestation 2. First trimester bleeding 3. Low progesterone and early first trimester 4. Obesity 5. History of chlamydia 6. Gestational hypertension 7. Delivery of healthy female weighing 6 pounds 0 ounces with Apgars of 8 and 9 Procedure: Vacuum-assisted vaginal delivery. Delivering Physician: Jesus Lozano MD. Estimated blood loss (mL): 200 Findings: 1. Healthy female weighing 6 pounds 0 ounces with Apgars of 8 and 9 2. Intact placenta with a central umbilical cord insertion site 3. Nuchal cord x1 Pre-Delivery Course: Cady Samson is a 21 year old G1 now P1 status post vacuum-assisted vaginal delivery at 40.0 weeks gestation by 9-week ultrasound with unknown LMP.? Her was complicated by first trimester bleeding, low progesterone, obesity, history of chlamydia, now with gestational hypertension. The patient presented to labor and delivery on the evening of 11/07/2021 for a scheduled induction of labor due to postdates and early gestational hypertension. The patient's initial blood pressures were elevated and she received 1 dose of IV labetalol. She responded to this well and did not need further dosing. She was 1/50/-3 upon presentation and was started on Cytotec. She received 3 doses and was jeanmarie every 2 to 3 minutes after the third dose. Her Vick score was 10 at that time. She was started on IV Pitocin for augmentation of labor. The patient continued to make gradual change and was complete by 3:25 AM on 11/09/2021. Delivery: The patient began to have heart tone decelerations at the time of being complete. I was called at 3:26 AM. Upon my arrival at 3:44 AM, the patient was in hands and knees. heart tones had recovered with this. The patient was turned onto her back again and began pushing at 3:48 AM on 11/09/2021. There were further heart tone decelerations and the patient was having a hard time directing her pressures well with her epidural working so well. Because the decelerations were staying in the 60s to 80s range and not improving in between contractions, it was felt best to help expedite the delivery by placing a vacuum. The head was in the +1 position when the vacuum was placed. The head was confirmed to be in the OA position. The vacuum was placed at 4:00 a.m. Suction was placed and confirmed to be in the green zone. As the patient pushed with contractions, I pulled with the vacuum. There were no pop offs. The infant descended well with this and delivered at 4:03 AM on 11/09/2021. The infant was in the OA position. A nuchal cord was noted, however was tight and the was delivered through this. Right shoulder was the anterior shoulder and it delivered with ease. Rest of the delivered with ease. The had poor tone initially at , however took a few small breaths. The 's mouth and nose were bulb suctioned by myself and the infant was placed on the mother's chest where the nurses were waiting to care for her. The began breathing and crying quickly thereafter. The cord was clamped by myself and cut by the infant's father. Cord blood was obtained. The cord was then drained of blood and traction was placed on the umbilical cord. Fundal massage was done and the placenta delivered at 4:11 AM without complication. The placenta was noted to be intact with a central umbilical cord insertion site. The cervix was then inspected and no lacerations were noted. The vaginal wall was inspected and a second-degree tear on the right labial wall and a second-degree tear on the left lower labial wall were noted. These were bleeding and were repaired using 3-0 Vicryl in a running fashion. 2% lidocaine was placed locally for anesthesia. The patient tolerated this well. A rectal exam was done and no sutures were noted in the rectal vault. Currently both the mother and infant are doing well. History History History 1 Term 1 Miscarriages/Ectopic 0 0 Living Children 1 A&P Assessment and plan (1) Vacuum-assisted vaginal delivery: Status: Acute Coding Level of Care Code Acute Leasing Associate for Chg Fwd Diagnoses Vacuum-assisted vaginal delivery Z37.9
--- NOTE | 2021-11-09 06:35 | PC.NURSE ---
vacuum placed at 0400:04 released @ 0401:22 placed @ 0401:38 released @ 0402:49 placed @ 0402:49 Released @ 0403:54
[2021-11-09] MEDS: prenatal vitamin Capsule 1 CAP PO (08:34)
[2021-11-09] MEDS: benzocaine-menthol 78 gm Canister 1 SPRAY TOPICAL (08:34)
[2021-11-09] MEDS: lanolin oint 7 gm 1 APPLIC TOPICAL (08:34)
[2021-11-09] MEDS: ibuprofen 800 mg tablet PO ×3 (08:34→21:18)
[2021-11-09] MEDS: docusate sodium 100 mg Capsule PO ×2 (08:34→21:18)
--- NOTE | 2021-11-09 17:03 | ANE.PACU2 ---
Inpatient post-anesthesia follow up: Airway intact: Yes Vital signs: Temperature 97.7 F Pulse Rate 83 Respiratory Rate 17 Blood Pressure 154/73 Pulse Oximetry 100 Oxygen Delivery Me thod Room Air Oxygen Flow Rate Fraction of Inspir ed Oxygen Hydration adequate: Yes Nausea and vomiting: No Pain level: 1 Mental status: Baseline
[2021-11-09 18:59] LABS: Hematocrit 29.5 % (37.0-47.0); Hemoglobin 10.1 g/dL (11.5-15.3); Mean Corpuscular HGB Conc 34.2 g/dL (30.0-36.0); Mean Corpuscular Hemoglobin 27.4 pg (28.0-34.0); Mean Corpuscular Volume 80.2 fl (81-99); Mean Platelet Volume 10.5 fL (7.4-10.4); Platelet Count 209 10^3/cmm (130-400); Red Blood Count 3.68 10^6/uL (4.1-5.3); Red Cell Distribution Width 14.2 % (12.1-15.1); White Blood Count 15.8 10^3/uL (4.0-10.0)
[2021-11-10 05:21] VITALS: BP 145/85; PULSE 75
[2021-11-10 09:09] VITALS: BP 146/87; PULSE 122
[2021-11-10] MEDS: docusate sodium 100 mg Capsule PO (09:42)
[2021-11-10] MEDS: ibuprofen 800 mg tablet PO (09:42)
[2021-11-10] MEDS: prenatal vitamin Capsule 1 CAP PO (09:42)
--- NOTE | 2021-11-10 13:31 | P.DS_ITS ---
Discharge Providers Date of Admission: 11/08/21 02:22 Date of Discharge: November 10, 2021 Attending Provider at Admission: Jesus Lozano MD Attending Provider at Discharge: Jesus Lozano MD Primary Care Provider: CANDIDA Sloan Diagnoses at Discharge Discharge Diagnosis (1) Vacuum-assisted vaginal delivery: Status: Acute Other Information Additional DC diagnoses/information: 1.? Intrauterine status post vacuum-assisted vaginal delivery at 40.2 weeks gestation 2.? First trimester bleeding 3.? Low progesterone and early first trimester 4.? Obesity 5.? History of chlamydia 6.? Gestational hypertension 7.? Delivery of healthy infant female weighing 6 pounds 0 ounces with Apgars of 8 and 9? Reason for Visit Reason for Visit: induction Hospital Course Hospital Course Cady Samson is a 21 year old G1 now P1 status post vacuum-assisted vaginal delivery at 40.0 weeks gestation by 9-week ultrasound with unknown LMP.? Her was complicated by first trimester bleeding, low progesterone, obesity, history of chlamydia, now with gestational hypertension. The patient presented to labor and delivery on the evening of 11/07/2021 for a scheduled induction of labor due to postdates and early gestational hypertension.? The patient's initial blood pressures were elevated and she received 1 dose of IV labetalol.? She responded to this well and did not need further dosing.? She was 1/50/-3 upon presentation and was started on Cytotec.? She received 3 doses and was jeanmarie every 2 to 3 minutes after the third dose.? Her Vick score was 10 at that time.? She was started on IV Pitocin for augmentation of labor.? The patient continued to make gradual change and was complete by 3:25 AM on 11/09/2021. The patient began to have heart tone decelerations at the time of being complete.? I was called at 3:26 AM.? Upon my arrival at 3:44 AM, the patient was in hands and knees.? heart tones had recovered with this.? The patient was turned onto her back again and began pushing at 3:48 AM on 11/09/2021.? There were further heart tone decelerations and the patient was having a hard time directing her pressures well with her epidural working so well.? Because the decelerations were staying in the 60s to 80s range and not improving in between contractions, it was felt best to help expedite the delivery by placing a vacuum.? The head was in the +1 position when the vacuum was placed.? The head was confirmed to be in the OA position.? The vacuum was placed at 4:00 a.m.? Suction was placed and confirmed to be in the green zone.? As the patient pushed with contractions, I pulled with the vacuum.? There were no pop offs.? The infant descended well with this and delivered at 4:03 AM on 11/09/2021.? The was in the OA position.? A nuchal cord was noted, however was tight and the was delivered through this.? Right shoulder was the anterior shoulder and it delivered with ease.? Rest of the delivered with ease.? The had poor tone initially at , however took a few small breaths.? The 's mouth and nose were bulb suctioned by myself and the was placed on the mother's chest where the nurses were waiting to care for her.? The began breathing and crying quickly thereafter.? The cord was clamped by myself and cut by the 's father.? Cord blood was obtained.? The cord was then drained of blood and traction was placed on the umbilical cord.? Fundal massage was done and the placenta delivered at 4:11 AM without complication.? The placenta was noted to be intact with a central umbilical cord insertion site.? The cervix was then inspected and no lacerations were noted.? The vaginal wall was inspected and a second-degree tear on the right labial wall and a second- degree tear on the left lower labial wall were noted.? These were bleeding and were repaired using 3-0 Vicryl in a running fashion.? 2% lidocaine was placed locally for anesthesia.? the patient has done well. Her bleeding is decreasing well. She is ambulating, voiding, passing gas and tolerating food by mouth. Her pain is well controlled. Routine discharge instructions were discussed. The patient is in agreement with discharge home at this time. All questions were answered. Physical Exam Narrative: General: Alert and oriented x3 Cardiac: Regular rate and rhythm without murmurs Lungs: Clear to auscultation bilaterally without wheezes, crackles or rhonchi Abdomen: Soft, mild tenderness over uterus. The uterus is firm and 2 cm below the umbilicus. Extremities: Trace edema in the bilateral lower extremities Urinary Catheter Management: Hanks Latex Free: Cath Placed During This Visit: yes, but has since been removed by the nurse Reason for Continuing Indwelling Catheter: Decision to DC Catheter Urinary Catheter Date of Insertion: 11/08/21 Urinary Catheter Time of Insertion: 16:48 Date Urinary Catheter Removed: 11/09/21 Time Urinary Catheter Discontinued: 03:50 Discharge Data Studies Completed and Pending Laboratory Results WBC 15.8 10^3/uL (4.0-10.0) H 11/09/21 18:10 RBC 3.68 10^6/uL (4.1-5.3) L 11/09/21 18:10 Hgb 10.1 g/dL (11.5-15.3) L 11/09/21 18:10 Hct 29.5 % (37.0-47.0) L 11/09/21 18:10 MCV 80.2 fl (81-99) L 11/09/21 18:10 MCH 27.4 pg (28.0-34.0) L 11/09/21 18:10 MCHC 34.2 g/dL (30.0-36.0) 11/09/21 18:10 RDW 14.2 % (12.1-15.1) 11/09/21 18:10 Plt Count 209 10^3/cmm (130-400) 11/09/21 18:10 MPV 10.5 fL (7.4-10.4) H 11/09/21 18:10 Neut % (Auto) 76.5 % 11/07/21 18:40 Lymph % (Auto) 16.7 % 11/07/21 18:40 [place] % (Auto) 5.1 % 11/07/21 18:40 Eos % (Auto) 1.0 % 11/07/21 18:40 Baso % (Auto) 0.2 % 11/07/21 18:40 Neut # (Auto) 10.14 10^3/uL (1.8-7.7) H 11/07/21 18:40 Lymph # (Auto) 2.2 10^3/uL (0.8-4.8) 11/07/21 18:40 [place] # (Auto) 0.7 10^3/uL (0.2-0.9) 11/07/21 18:40 Eos # (Auto) 0.1 10^3/uL (0.0-0.8) 11/07/21 18:40 Baso # (Auto) 0.0 10^3/uL (0.0-0.1) 11/07/21 18:40 Nucleated RBC % (auto) 0 % 11/07/21 18:40 Nucleated RBCs # 0.0 /100WBC 11/07/21 18:40 Sodium 136 mmol/L (136-145) 11/07/21 20:10 Potassium 4.4 mmol/L (3.5-5.1) 11/07/21 20:10 Chloride 103 mmol/L (98-107) 11/07/21 20:10 Carbon Dioxide 20 mmol/L (22-29) L 11/07/21 20:10 Anion Gap 17.4 (5-19) 11/07/21 20:10 BUN 15 mg/dL (6-20) 11/07/21 20:10 Creatinine 0.5 mg/dL (0.5-0.9) 11/07/21 20:10 GFR Calculation 155.7 mL/min (90-130) H 11/07/21 20:10 Glucose 94 mg/dL (65-115) 11/07/21 20:10 Calculated Osmolality 283 mOsm/kg (285-295) L 11/07/21 20:10 Uric Acid 5.8 mg/dL (2.4-5.7) H 11/07/21 20:10 Calcium 9.7 mg/dL (8.5-10.5) 11/07/21 20:10 Total Bilirubin 0.2 mg/dL (0.15-1.2) 11/07/21 20:10 AST 16 U/L (0-32) 11/07/21 20:10 ALT 15 U/L (0-33) 11/07/21 20:10 Alkaline Phosphatase 602 IU/L (35-105) H 11/07/21 20:10 Total Protein 7.2 g/dL (6.6-8.7) 11/07/21 20:10 Albumin 3.4 g/dL (3.5-5.2) L 11/07/21 20:10 Globulin 3.8 g/dL (1.3-4.6) 11/07/21 20:10 U Random Total Protein 29 mg/dL 11/07/21 20:10 Urine Creatinine 128 mg/dL (28-217) 11/07/21 20:10 Protein/Creatinin Ratio 0.23 mg/mg CR 11/07/21 20:10 Vitals Last Vital Signs Temp 97.7 F 11/09/21 15:37 Pulse 122 H 11/10/21 09:09 Resp 17 11/09/21 04:49 BP 146/87 11/10/21 09:09 Pulse Ox 100 11/09/21 03:42 Discharge Plan Discharge Patient Disposition: Home Condition: Good Prescriptions: New docusate sodium 100 mg Capsule 100 mg PO BID Qty: 30 0RF ibuprofen 800 mg Tablet 800 mg PO TID Qty: 30 0RF Continued Vitamin Tablet 1 tab PO DAILY 0RF Tagamet 1 tab PO DAILY 0RF FeroSul 325 mg (65 mg iron) tablet 325 mg PO DAILY Qty: 30 0RF Discontinued folic acid tablet 1 tab PO DAILY 0RF Discharge Orders: Discharge Order (Routine); Ordered 11/10/21 Ordered By: Jesus Lozano Referrals: Jesus Lozano MD [Physician] - 6 Weeks Discharge Diet: Regular Discharge Activity: Limit activity as instructed Patient Instructions: Depression (DC), Bleeding (DC), OB Discharge Report, OB Food/Drug Interaction Guide, Opioid Safety, OB [facility], OB Vaginal Deliveries, Abnormal Bleeding Activity Restrictions/Additional Instructions: Please keep overall activity level low for the first 2 weeks, then gradually increase. Watch blood pressure closely and let me know if becoming elevated over 150/110. Nothing per vagina for 6 weeks. Recommendation for showers instead of baths for the first 6 weeks. Discharge Attestations Time Spent in Discharge Care*: greater than 30 min Quality Metrics Clinical Quality Measures [ No reported AMI, CVA or VTE this stay] Coding Level of Care Code Acute Chg FW DC note Diagnoses Vacuum-assisted vaginal delivery Z37.9
[2021-11-10 15:00] VITALS: TEMP 36.8
[2021-11-10 15:15] VITALS: BP 167/90; PULSE 96
[2021-11-10 15:36] VITALS: BP 140/69; PULSE 86
[2021-11-10 15:47] VITALS: RESP 15; TEMP 36.8
== END 2021-11-10 15:45 | disposition home or self-care (01) | DRG 807 ==
LOC: OPOB 02:23 → OBGYN 02:23
PROVIDERS: Admitting Provider Family Medicine; PCP Nurse Practitioner Family; Visit Provider Family Medicine
DX: O13.4 Gestational [pregnancy-induced] hypertension without significant proteinuria, complicating childbirth (principal); Z37.0 Single live birth; O48.0 Post-term pregnancy; Z3A.40 40 weeks gestation of pregnancy; O99.214 Obesity complicating childbirth; O69.2XX0 Labor and delivery complicated by other cord entanglement, with compression, not applicable or unspecified; O76 Abnormality in fetal heart rate and rhythm complicating labor and delivery; O70.1 Second degree perineal laceration during delivery; O75.89 Other specified complications of labor and delivery; Z87.891 Personal history of nicotine dependence; R89.1 Abnormal level of hormones in specimens from other organs, systems and tissues
CPT/HCPCS: 36415; 51702; 59025; 59409; 80053; 82570; 84156; 84550; 85025; 85027; 99211; J2405; J2795; J3490

== ENCOUNTER 2023-08-28 02:46 | Emergency (ER) | payer MEDICAID, SELFPAY ==
[2023-08-28 02:51] VITALS: BP 166/82; PULSE 84; RESP 14; TEMP 36.6; O2SAT 98; BMI 41.5
--- NOTE | 2023-08-28 02:54 | ECG_ITS ---
[facility] Test Date: 2023-08-28 Pat Name: Cady Samson Department: Room: Gender: Female [place]: : 2000 Requested By: Sid Interiano Order Number: [id number] Aline MD: Felipe Avelar M.D. Measurements Intervals [place] Rate: 75 P: 40 CA: 154 QRS: 56 QRSD: 85 T: 29 QT: 342 QTc: 383 Interpretive Statements SINUS RHYTHM No previous ECG available for comparison Electronically Signed On 08-28-2023 15:26:36 CDT by Felipe Avelar M.D. [id number]
--- NOTE | 2023-08-28 02:59 | ED_ITS ---
HPI - Chest Pain 2 General: Chief Complaint: Chest Pain Stated Complaint: CP, Back pain Time Seen by Provider: 08/28/23 02:47 History of Present Illness: 23-year-old female presents emerged part with complaints that at 2 AM she woke up from a sleep with a burning midsternal pain that now is moved to her right rib area. She states the pain initially was a 6 out of 10 but now has resolved. She denies nausea vomiting fever chills or night sweats. She states she does not feel short of breath or have diaphoresis at the time of her epigastric discomfort. She states she does have a history of anxiety, depression and acid reflux. She states she has history of hypertension and takes a blood pressure medicine but is unable to recall the type of blood pressure medicine she takes. Associated symptoms: Reports abdominal pain Review of Systems 2 General: Reports: 10 or more systems reviewed and unremarkable except in HPI and below GI: Reports: abdominal pain and heartburn Psych: Reports: anxiety [facility] ED 2 PFSH: Medical History Gestational hypertension History of chlamydia Vacuum-assisted vaginal delivery Family History Other Diabetes Hypertension Social History Smoking and tobacco/nicotine status: former use of tobacco/nicotine Alcohol intake: never Substance/Drug Use: never Physical Exam 2 Narrative: EXAM NARRATIVE: Constitutional: the patient appears well nourished and of normal development. Vital signs as documented. No acute distress at present. Alert and oriented-to person, place, time and situation. Head, eyes, ears, nose, mouth, throat: Normocephalic, atraumatic. Pupils-equal, round, reactive to light. No scleral icterus. Normal-appearing external ears. Normal appearing nasal turbinates, no drainage. No obvious oral lesions, posterior oropharynx without erythema or exudates. Neck: Supple, trachea is midline, no lymphadenopathy, no jugular venous distension, thyromegaly, or carotid bruits. Carotid upstrokes are brisk bilaterally. Lungs: clear to auscultation to all lung aquino. Symmetrical rise and fall of chest, no obvious signs of increased work of breathing at present. Cardiac: Regular rate and rhythm, positive S1, S2. No murmurs, rubs or gallops that I can appreciate Abdomen: Soft, non-tender to palpation, normal active bowel sounds to all quadrants. No palpable masses, no organomegaly and abdominal bruits. Extremities: 2+ pulses in the upper extremities that are equal bilaterally, 2+ pulses in the lower extremities that are equal bilaterally. Non-edematous. Moves all extremities well, sensation to all extremities are noted. Skin: Warm, dry, intact. Course 2 Vital Signs: Vital signs: Vital Signs Temperature 97.8 F 08/28/23 02:51 Pulse Rate 84 08/28/23 02:51 Respiratory Rate 14 08/28/23 02:51 Blood Pressure 166/82 08/28/23 02:51 Pulse Oximetry 98 08/28/23 02:51 Oxygen Delivery Me thod Room Air 08/28/23 02:51 MDM - Chest Pain Medical Decision Making Physical exam completed and documented I will obtain a CBC and CMP as well as urinalysis and a twelve-lead EKG. I suspect her discomfort is more related to her acid reflux as she states she does not take any medication for that. Medical Records I reviewed the patient's medical records. Lab Data I reviewed the patient's lab results. 08/28/23 03:01 08/28/23 03:01 Laboratory Results WBC 13.49 10^3/uL (3.29-11.43) H 08/28/23 03:01 RBC 4.60 10^6/uL (3.85-5.65) 08/28/23 03:01 Hgb 12.20 g/dL (11.27-16.99) 08/28/23 03:01 Hct 36.8 % (36-47) 08/28/23 03:01 MCV 80.0 fl (85-98) L 08/28/23 03:01 MCH 26.5 pg (27-33) L 08/28/23 03:01 MCHC 33.2 g/dL (30-55) 08/28/23 03:01 RDW 13.3 % (12.1-15.1) 08/28/23 03:01 Plt Count 385 10^3/cmm (157-399) 08/28/23 03:01 MPV 8.8 fL (7.4-10.4) 08/28/23 03:01 Neut % (Auto) 62.6 % 08/28/23 03:01 Lymph % (Auto) 28.2 % 08/28/23 03:01 [place] % (Auto) 6.2 % 08/28/23 03:01 Eos % (Auto) 2.4 % 08/28/23 03:01 Baso % (Auto) 0.3 % 08/28/23 03:01 Neut # (Auto) 8.44 10^3/uL (1.8-7.7) H 08/28/23 03:01 Lymph # (Auto) 3.8 10^3/uL (0.8-4.8) 08/28/23 03:01 [place] # (Auto) 0.8 10^3/uL (0.2-0.9) 08/28/23 03:01 Eos # (Auto) 0.3 10^3/uL (0.0-0.8) 08/28/23 03:01 Baso # (Auto) 0.0 10^3/uL (0.0-0.1) 08/28/23 03:01 Nucleated RBC % (auto) 0 % 08/28/23 03:01 Nucleated RBCs # 0.0 /100WBC 08/28/23 03:01 Sodium 137 mmol/L (136-145) 08/28/23 03:01 Potassium 3.3 mmol/L (3.5-5.1) L 08/28/23 03:01 Chloride 101 mmol/L (98-107) 08/28/23 03:01 Carbon Dioxide 25 mmol/L (22-29) 08/28/23 03:01 Anion Gap 14.3 (5-19) 08/28/23 03:01 BUN 13 mg/dL (6-20) 08/28/23 03:01 Creatinine 0.8 mg/dL (0.5-0.9) 08/28/23 03:01 GFR Calculation 88.9 mL/min (90-130) L 08/28/23 03:01 Glucose 102 mg/dL (65-115) 08/28/23 03:01 Calculated Osmolality 284 mOsm/kg (285-295) L 08/28/23 03:01 Calcium 9.7 mg/dL (8.5-10.5) 08/28/23 03:01 Total Bilirubin 0.2 mg/dL (0.15-1.2) 08/28/23 03:01 AST 10 U/L (0-32) 08/28/23 03:01 ALT 16 U/L (0-33) 08/28/23 03:01 Alkaline Phosphatase 116 U/L (35-105) H 08/28/23 03:01 Total Protein 7.8 g/dL (6.6-8.7) 08/28/23 03:01 Albumin 4.0 g/dL (3.5-5.2) 08/28/23 03:01 Globulin 3.8 g/dL (1.3-4.6) 08/28/23 03:01 Lipase 24 U/L (13-60) 08/28/23 03:01 Urine Color Light yellow (Yellow) 08/28/23 03:01 Urine Appearance Cloudy (CLEAR) A 08/28/23 03:01 Urine pH 6.5 (5-7) 08/28/23 03:01 Ur Specific [place] 1.015 (1.005-1.030) 08/28/23 03:01 Urine Protein Neg (Negative) 08/28/23 03:01 Urine Glucose (UA) Norm (Normal) 08/28/23 03:01 Urine Ketones Negative (Negative) 08/28/23 03:01 Urine Blood Neg (Negative) 08/28/23 03:01 Urine Nitrate Negative (Negative) 08/28/23 03:01 Urine Bilirubin Neg (Negative) 08/28/23 03:01 Urine Urobilinogen Neg mg/dL (Negative) 08/28/23 03:01 Ur Leukocyte Esterase Trace (Negative) H 08/28/23 03:01 Urine RBC 0-4 /hpf (0-2) H 08/28/23 03:01 Urine WBC 0-4 /hpf (0-5) H 08/28/23 03:01 Ur Squamous Epith Cells 15-25 /hpf (0-5) H 08/28/23 03:01 Amorphous Sediment 1+ /hpf 08/28/23 03:01 Urine Bacteria 2+ /hpf (NONE) H 08/28/23 03:01 Urine Mucus 2+ /hpf 08/28/23 03:01 No radiology studies performed this visit EKG Data EKG 1: Interpretation: Twelve-lead EKG obtained at 0 254 reviewed at 0 255 demonstrates sinus rhythm, ventricular rate 75 bpm, MI interval 154, QRS duration 85, QT 342, QTc [address] elevation or depression to demonstrate acute ischemia or infarction at present. Discharge Plan Discharge Patient Disposition: Home Clinical Impression: Atypical chest pain, Chest pain due to GERD Condition: Stable Prescriptions: No Action hydroxyzine HCl 50 mg tablet 50 mg PO Q8H PRN (Reason: nausea and vomiting) Qty: 30 0RF ibuprofen 800 mg Tablet 800 mg PO TID Qty: 30 0RF Discharge Orders: Discharge ED (Routine); Ordered 08/28/23 Ordered By: Sid Interiano Referrals: Debi Umanzor FNP [Primary Care Provider] - Discharge Diet: Usual diet Discharge Activity: Resume usual activity Patient Instructions: Opioid Safety, Pain Management Coding Level of Care Code ED Bale Breaker Operator for Placido Ahuja
[2023-08-28 03:24] LABS: Basophils % 0.3 %; Eosinophils # 0.3 10^3/uL (0.0-0.8); Eosinophils % 2.4 %; Hematocrit 36.8 % (36-47); Lymphocytes # 3.8 10^3/uL (0.8-4.8); Lymphocytes % 28.2 %; Mean Corpuscular HGB Conc 33.2 g/dL (30-55); Mean Corpuscular Hemoglobin 26.5 pg (27-33); Mean Platelet Volume 8.8 fL (7.4-10.4); Monocytes # 0.8 10^3/uL (0.2-0.9); Monocytes % 6.2 %; Neutrophils # 8.44 10^3/uL (1.8-7.7); Neutrophils % 62.6 %; Nucleated Red Blood Cells % 0 %; Platelet Count 385 10^3/cmm (157-399); Red Cell Distribution Width 13.3 % (12.1-15.1); White Blood Count 13.49 10^3/uL (3.29-11.43)
[2023-08-28 03:25] LABS: Add Urine Microscopic? YES; Bilirubin Urine Neg (Negative); Blood Urine Neg (Negative); Glucose Urine UA Norm (Normal); Ketones Urine Negative (Negative); Leukocyte Esterase Urine Trace (Negative); Nitrate Urine Negative (Negative); Protein Urine Neg (Negative); Specific Gravity, Urine 1.015 (1.005-1.030); Squamous Epithelial Cell Urine 15-25 /hpf (0-5); Urine Appearance Cloudy (CLEAR); Urine Color Light yellow (Yellow); Urobilinogen Urine Neg (Negative); WBC Urine 0-4 /hpf (0-5); pH Urine 6.5 (5-7)
[2023-08-28 03:26] LABS: Add Urine Culture? No; Amorphous Sediment Urine 1+ /hpf; Bacteria Urine 2+ /hpf; Mucus Urine 2+ /hpf; RBC Urine 0-4 /hpf (0-2)
[2023-08-28 03:35] LABS: Alanine Aminotransferase 16 U/L (0-33); Alkaline Phosphatase 116 U/L (35-105); Anion Gap 14.3 (5-19); Aspartate Amino Transferase 10 U/L (0-32); Blood Urea Nitrogen 13 mg/dL (6-20); Calcium 9.7 mg/dL (8.5-10.5); Carbon Dioxide 25 mmol/L (22-29); Chloride 101 mmol/L (98-107); Creatinine Clr Calc Pharmacy 118.4353; Globulin 3.8 g/dL (1.3-4.6); Glomerular Filtration Rate 88.9 mL/min (90-130); Glucose 102 mg/dL (65-115); Lipase 24 U/L (13-60); Osmolality Calculated 284 mOsm/kg (285-295); Potassium 3.3 mmol/L (3.5-5.1); Sodium 137 mmol/L (136-145); Total Bilirubin 0.2 mg/dL (0.15-1.2); Total Protein 7.8 g/dL (6.6-8.7)
[2023-08-28] MEDS: potassium chloride ER 20 mEq Tablet 40 MEQ PO (04:23)
[2023-08-28 04:24] VITALS: BP 124/57; PULSE 80; RESP 16; O2SAT 97
[2023-08-28 04:28] VITALS: BP 124/57; PULSE 80; RESP 16; TEMP 36.6; O2SAT 97
== END 2023-08-28 04:29 | disposition home or self-care (01) ==
PROVIDERS: Emergency Provider Internal Medicine; PCP Nurse Practitioner Family
DX: R07.89 Other chest pain (principal); K21.9 Gastro-esophageal reflux disease without esophagitis; Z87.891 Personal history of nicotine dependence
CPT/HCPCS: 80053; 81001; 83690; 85025; 93005; 99284

== ENCOUNTER 2023-11-04 09:50 | Day surgery (SDC) | payer OTHER, BC, MEDICAID, SELFPAY ==
[2023-11-04] VITALS (13 sets, daily range): BP systolic 130–169; BP diastolic 79–98; PULSE 65–99; RESP 16–20; TEMP 36.1–36.6; O2SAT 91–99; BMI 41.5
[2023-11-04 10:24] LABS: OR HCG Qualitative Urine Negative (Negative)
[2023-11-04] MEDS: sodium chloride 0.9% 1,000 ML 30 ML IV (10:40)
--- NOTE | 2023-11-04 10:53 | W.PM.OPSFHP ---
Same Day Surgery H&P Indication for Procedure/HPI DATE OF PROCEDURE: November 04, 2023 CHIEF COMPLAINT/INDICATIONFOR SURGICAL PROCEDURE: symptomatic cholelithiasis PREOP DIAGNOSIS: symptomatic cholelithiasis PLANNED PROCEDURE: Operation Date: 11/04/23 11:35 Proposed Procedures p Laparoscopic Cholecystectomy 68321, K80.20(Not Applicable) - Italo Delgado MD Medications/Allergies* Home Medications Medication Instructions Recorded Confirmed Type labetalol 100 mg tablet 100 mg PO BID 10/09/23 11/04/23 History norgestimate-ethinyl estradiol 1 tab PO DAILY 10/09/23 11/04/23 History 0.18 mg/0.215mg/0.25mg-35 mcg(28)tablet (Tri-VyLibra) omeprazole 20 mg capsule,delayed 20 mg PO DAILY 10/09/23 11/04/23 History release amitriptyline 10 mg tablet 10 mg PO BEDTIME 11/04/23 11/04/23 History Allergies/Adverse Reactions Allergy/AdvReac Type Severity Reaction Status Date / Time Latex, Natural Rubber Allergy Mild ALGY-Rash Verified 11/04/23 10:30 Current Medications: Generic Name Dose Route Start Last Admin Trade Name Freq PRN Reason Stop Dose Admin Sodium Chloride 1,000 mls @ 30 mls/hr 11/04/23 10:15 11/04/23 10:40 Sodium Chloride 0.9% IV 11/05/23 10:14 30 mls/hr .Q24H IVELISSE Administration Pertinent History/Comorbid Conditions* Medical History (Updated 10/09/23 @ 12:16 by Italo Delgado MD) Vacuum-assisted vaginal delivery History of chlamydia Gestational hypertension Family History (Updated 11/07/21 @ 20:09 by Jesus Lozano MD) Diabetes Hypertension Social History Smoking and tobacco/nicotine status: never used tobacco/nicotine Alcohol intake: current Alcohol intake frequency: holidays/special occasions only Substance/Drug Use: never Pertinent Exam Findings alert, oriented x 3, clear to auscultation bilaterally and regular rate & rhythm Recommendations Surgery/Procedure today Coding Level of Care Code Acute Code for Chg Fwd
--- NOTE | 2023-11-04 10:58 | ANES.PREANE2 ---
Pre-Anesthetic Assessment Height/Weight: Height 1.55 m Weight 99.79 kg Temp Pulse Resp BP Pulse Ox 97.9 F 72 20 H 148/94 96 11/04/23 10:22 11/04/23 10:22 11/04/23 10:22 11/04/23 10:22 11/04/23 10:22 Preop Diagnosis: symptomatic cholelithiasis Operation Date: 11/04/23 11:35 Proposed Procedures p Laparoscopic Cholecystectomy 00833, K80.20(Not Applicable) - Italo Delgado MD Familial anesthetic complications: None Was Beta Tori taken within 24 hours: N/A Was Clonidine taken within 24 hours: N/A Last intake: Intake Last Liquid Date 11/03/23 Last Liquid Time 23:00 Last Solid Date 11/03/23 Last Solid Time 23:00 Social No alcohol and No tobacco Exam alert, oriented x 3, clear to auscultation bilaterally and regular rate & rhythm Airway Mallampati: Class III Dentition: other ( bad teeth ) CV/HEM Hypertension Metabolic Morbid Obesity Anesthetic Plan ASA status: 2 Anesthesia: General Risk of > 500 ml blood loss (7ml/kg in children): No Medications/Allergies Home Medications Medication Instructions Recorded Confirmed Last Taken Type labetalol 100 mg tablet 100 mg PO BID 10/09/23 11/04/23 11/04/23 History norgestimate-ethinyl estradiol 1 tab PO DAILY 10/09/23 11/04/23 11/03/23 History 0.18 mg/0.215mg/0.25mg-35 mcg(28)tablet (Tri-VyLibra) omeprazole 20 mg capsule,delayed 20 mg PO DAILY 10/09/23 11/04/23 11/04/23 08:00 History release amitriptyline 10 mg tablet 10 mg PO BEDTIME 11/04/23 11/04/23 11/03/23 History Allergies Allergy/AdvReac Type Severity Reaction Status Date / Time Latex, Natural Rubber Allergy Mild ALGY-Rash Verified 11/04/23 10:30 Current Medications Generic Name Dose Route Start Last Admin Trade Name Freq PRN Reason Stop Dose Admin Sodium Chloride 1,000 mls @ 30 mls/hr 11/04/23 10:15 11/04/23 10:40 Sodium Chloride 0.9% IV 11/05/23 10:14 30 mls/hr .Q24H IVELISSE Administration PFSH Anesthesia Medical History (Updated 10/09/23 @ 12:16 by Italo Delgado MD) Vacuum-assisted vaginal delivery History of chlamydia Gestational hypertension Family History Other Diabetes Hypertension Social History (Updated 10/09/23 @ 10:37 by LUCILA Lennon) Smoking and tobacco/nicotine status: never used tobacco/nicotine Alcohol intake: current Alcohol intake frequency: holidays/special occasions only Substance/Drug Use: never Female Reproductive History Date of last menstrual period: 10/10/23 Data Anesthesia Cardiac Studies: No Data to Display
[2023-11-04] MEDS: ceFAZolin 2,000 MG in sodium chloride 0.9% (plus) 50 ML 100 MG IV (11:27)
[2023-11-04] MEDS: BUPivacaine 0.25% INJ 10 mL INJECTION (11:57)
[2023-11-04] MEDS: lidocaine-epi 1% 20 mL INJ INJECTION (11:57)
--- NOTE | 2023-11-04 13:15 | PM.OP ---
Operative Report Date of procedure: November 04, 2023 Pre-op diagnosis: Symptomatic cholelithiasis Post-op diagnosis: Same Post-op findings: Normal biliary anatomy, there was adhesions from the duodenum to the infundibulum of the gallbladder Procedure done: laparoscopic cholecystectomy Specimens removed/disposition: Gallbladder Surgeon: Italo Delgado MD Brewery Cellar Worker: YISSEL OR Staff Estimated blood loss: 10 Complications: None apparent Brief History: 23-year-old female who presents to my office with symptomatic cholelithiasis, after discussion of risks and benefits documented my preop note with side to proceed with laparoscopic cholecystectomy. Procedure: Patient was brought into the OR, she was placed in a supine position, general anesthesia was given. The abdomen was prepped and draped in the usual sterile fashion. Timeout was conducted. I accessed the abdomen via Optiview trocar measuring 5 mm in Freeman's point, pneumoperitoneum was achieved and initial laparoscopy showed no evidence of visceral injury during entry. A 2 mm trocar was then placed in the supraumbilical position under direct visualization, additional 5 mm trocars were placed under direct visualization in the epigastric right upper quadrant and right flank positions. The gallbladder was retracted from the fundus in a cephalad direction, it was apparent that significant additions were present from the duodenum to the infundibulum of the gallbladder, I used blunt dissection in order to take those additions down. Once the duodenum was safely pushed out of the way I then proceeded to retract the infundibulum day inferolateral direction to expose hepatocystic triangle. I opened the peritoneum anterior to hepatocystic triangle with electrocautery, this opening was carried on the medial and lateral direction to the edges of the liver and then on the sides of the gallbladder to improve visualization. With careful dissection I was able to encircle the cystic duct and artery and I was able to elevate the lower third of the gallbladder from the liver bed. Critical view of safety was achieved. Cystic duct and artery were double clipped proximally and single clipped distally and transected. The gallbladder was removed from the liver bed using electrocautery. The removal of the gallbladder a small hole was made in the posterior wall causing bile leakage. Bile was immediately aspirated with suction irrigation. I then remove the specimen from the abdomen in an Endo Catch bag through the umbilical trocar site. The umbilical trocar site was then closed using 0 Vicryl with a Molina-Mohsen suture passer. This was done under direct visualization. I then proceeded to reevaluate the liver bed and clip position and this were in good position the liver was was hemostatic and no evidence of bile leak was noted. The area was irrigated and all the irrigation was subsequently suction. The right upper quadrant epigastric and right flank trocars were removed under direct visualization the left upper quadrant trocar was used to evacuate the pneumoperitoneum and subsequently removed. Local anesthesia was infiltrated in the wounds. The wounds were closed in layers using #3-0 Vicryl for the subcutaneous tissue and #4 Monocryl for the skin. Dermabond was applied. At the end of the procedure all counts were correct, the patient tolerated well the procedure and was transferred to PACU in stable condition.
[2023-11-04] MEDS: oxyCODONE 5 mg IR Tab/Cap PO (14:36)
[2023-11-04] MEDS: ondansetron 2 mg/ML SDV 2 mL 4 MG IVP (14:54)
[2023-11-04] MEDS: diphenhydrAMINE 50 mg/mL SDV 1mL 12.5 MG IVP (15:07)
--- NOTE | 2023-11-04 15:20 | ANE.PACU2 ---
Inpatient post-anesthesia follow up: Airway intact: Yes Vital signs: Temperature 97.8 F Pulse Rate 73 Respiratory Rate 18 Blood Pressure 136/88 Pulse Oximetry 94 Oxygen Delivery Me thod Room Air Oxygen Flow Rate 10 Fraction of Inspir ed Oxygen Hydration adequate: Yes Nausea and vomiting: No Pain level: 1 Mental status: Baseline
== END 2023-11-04 15:20 | disposition home or self-care (01) ==
PROVIDERS: Anesthesiology; PCP Nurse Practitioner Family; Visit Provider Surgery
PROC: 0FT44ZZ Resection of Gallbladder, Percutaneous Endoscopic Approach (ICD-10-PCS; CPT 47562; principal; 2023-11-04 11:25)
DX: K80.10 Calculus of gallbladder with chronic cholecystitis without obstruction (principal); K66.0 Peritoneal adhesions (postprocedural) (postinfection); I10 Essential (primary) hypertension; E66.01 Morbid (severe) obesity due to excess calories; Z68.41 Body mass index [BMI] 40.0-44.9, adult
CPT/HCPCS: 47562; 81025; 88304; J0690; J1100; J1200; J2250; J2405; J2704; J3010; J3490; J7030

== ENCOUNTER → 2024-09-22 11:48 | Outpatient (BNVA) | payer OTHER, BC, MEDICAID, SELFPAY | PROVIDERS: PCP Nurse Practitioner Family; Visit Provider Nurse Practitioner Women's Health | DX: O26.891 Other specified pregnancy related conditions, first trimester (principal); Z3A.09 9 weeks gestation of pregnancy | CPT/HCPCS: 76801; 81025 ==

== ENCOUNTER → 2024-10-08 08:25 | Outpatient (BNVA) | payer OTHER, BC, MEDICAID, SELFPAY | PROVIDERS: PCP Nurse Practitioner Family; Visit Provider Nurse Practitioner Women's Health | DX: Z34.90 Encounter for supervision of normal pregnancy, unspecified, unspecified trimester (principal) | CPT/HCPCS: 80307; 84315; 84443; 85025; 86592; 86762; 86803; 86850; 86900; 87086; 87340; 87491; 87591; 87661; 87806 ==

== ENCOUNTER → 2024-10-16 10:43 | Outpatient (BNVA) | payer BC, MEDICAID, SELFPAY | PROVIDERS: PCP Nurse Practitioner Family; Visit Provider Obstetrics & Gynecology | DX: Z34.90 Encounter for supervision of normal pregnancy, unspecified, unspecified trimester (principal) | CPT/HCPCS: 80053; 84315; 87624 ==

== ENCOUNTER 2024-10-19 12:27 | Outpatient (CLI) | payer BC, MEDICAID, SELFPAY ==
[2024-10-19 14:17] LABS: Total Volume, Urine 1300 mL
[2024-10-19 14:32] LABS: Urine Total Protein 7.6 mg/dL (0-150); Urine Total Protein 24 Hour 98.8 mg/24hr (0-150)
== END 2024-10-19 12:28 | disposition home or self-care (01) ==
LOC: LAB 12:29
PROVIDERS: PCP Nurse Practitioner Family; Visit Provider Nurse Practitioner Women's Health
DX: Z34.90 Encounter for supervision of normal pregnancy, unspecified, unspecified trimester (principal)
CPT/HCPCS: 84156

== ENCOUNTER → 2024-11-10 10:55 | Outpatient (BNVA) | payer BC, MEDICAID, SELFPAY | PROVIDERS: PCP Nurse Practitioner Family; Visit Provider Nurse Practitioner Women's Health | DX: Z34.90 Encounter for supervision of normal pregnancy, unspecified, unspecified trimester (principal) | CPT/HCPCS: 82105; 84315 ==

== ENCOUNTER → 2024-12-07 09:29 | Outpatient (BNVA) | payer BC, MEDICAID, SELFPAY | PROVIDERS: PCP Nurse Practitioner Family; Visit Provider Obstetrics & Gynecology | DX: O26.892 Other specified pregnancy related conditions, second trimester (principal); Z3A.20 20 weeks gestation of pregnancy | CPT/HCPCS: 76805 ==

== ENCOUNTER → 2024-12-14 10:58 | Outpatient (BNVA) | payer BC, MEDICAID, SELFPAY | PROVIDERS: PCP Nurse Practitioner Family; Visit Provider Obstetrics & Gynecology | DX: Z34.90 Encounter for supervision of normal pregnancy, unspecified, unspecified trimester (principal) | CPT/HCPCS: 82950; 84315 ==

== ENCOUNTER → 2025-01-14 09:15 | Outpatient (BNVA) | payer BC, MEDICAID, SELFPAY | PROVIDERS: PCP Nurse Practitioner Family; Visit Provider Nurse Practitioner Women's Health | DX: Z34.90 Encounter for supervision of normal pregnancy, unspecified, unspecified trimester (principal) | CPT/HCPCS: 84315 ==

== ENCOUNTER → 2025-02-01 08:18 | Outpatient (BNVA) | payer BC, MEDICAID, SELFPAY | PROVIDERS: PCP Nurse Practitioner Family; Visit Provider Obstetrics & Gynecology | DX: O26.893 Other specified pregnancy related conditions, third trimester (principal); Z3A.28 28 weeks gestation of pregnancy | CPT/HCPCS: 82951; 82952; 84315; 85025 ==

== ENCOUNTER 2025-02-12 10:29 | Outpatient (CLI) | payer BC, MEDICAID, SELFPAY ==
--- NOTE | 2025-02-12 10:34 | USR_ITS ---
PROCEDURE INFORMATION: Exam: US , Follow up Exam date and time: 02/12/2025 10:44 AM Age: 24 years old Clinical indication: Screening exam; Routine US, uterus; Additional info: Z34.90 - encounter for supervision of normal , u. . . , LABS AND CLINICAL REPORTS: Gestational age (Established): 29 w 6 d Estimated due date (Established): 04/24/2025 TECHNIQUE: Imaging protocol: Transabdominal ultrasound of the uterus, real time with image documentation. Follow-up (eg, re-evaluation of size by measuring standard growth parameters and amniotic fluid volume, re-evaluation of organ system(s) suspected or confirmed to be abnormal on a previous scan). COMPARISON: US OB >= 14 weeks fetus [id number] 12/07/2024 9:36 AM FINDINGS: Gestation: Single intrauterine gestation heart rate: 153 bpm presentation: Cephalic Placenta: Posterior, unremarkable. No previa. Amniotic fluid (qualitative): Unremarkable as visualized. BIOMETRY: AUA: 30 weeks 3 days with MT 04/20/2025 Estimated weight: 1492 g (3 lb 5 oz) EFW by AC, BPD, FL, HC, Hadlock 1985 41.8 percentile Biparietal diameter (BPD): 7.74 cm. EGA (BPD) is 31 w 0 d. 75 % percentile Head circumference (HC): 28.57 cm. EGA (HC) is 31 w 3 d. 60 % percentile Abdominal circumference (AC): 25.73 cm. EGA (AC) is 29 w 6 d. 45.8 % percentile Femur length (FL): 5.61 cm. EGA (FL) is 29 w 4 d. 25.4 % percentile HC/AC: 1.11. (Normal range: 0.97 - 1.18) FL/HC: 19.64. (Normal range: 19.24 - 21.36) FL/BPD: 72.48. (Normal range: 71 - 87) FL/AC: 21.8. (Normal range: 20 - 24) Maternal: Cervix measures 4.3 cm and appears closed. US/[place] [id number] IMPRESSION: 1. Single intrauterine of 30 weeks 3 days ultrasound age with FHR 153 bpm and cephalic presentation. 2. EFW 1492 g (3 lb 5 oz) 41.8 percentile. 3. Posterior placenta, unremarkable.
== END 2025-02-12 10:30 | disposition home or self-care (01) ==
LOC: RAD 10:31
PROVIDERS: PCP Nurse Practitioner Family; Visit Provider Obstetrics & Gynecology
DX: Z34.93 Encounter for supervision of normal pregnancy, unspecified, third trimester (principal); Z3A.30 30 weeks gestation of pregnancy
CPT/HCPCS: 76816

== ENCOUNTER → 2025-02-15 09:33 | Outpatient (BNVA) | payer BC, MEDICAID, SELFPAY | PROVIDERS: PCP Nurse Practitioner Family; Visit Provider Obstetrics & Gynecology | DX: Z34.90 Encounter for supervision of normal pregnancy, unspecified, unspecified trimester (principal) | CPT/HCPCS: 84315 ==

== ENCOUNTER → 2025-03-01 08:56 | Outpatient (BNVA) | payer BC, MEDICAID, SELFPAY | PROVIDERS: PCP Nurse Practitioner Family; Visit Provider Obstetrics & Gynecology | DX: Z34.90 Encounter for supervision of normal pregnancy, unspecified, unspecified trimester (principal) | CPT/HCPCS: 84315 ==

== ENCOUNTER → 2025-03-15 08:09 | Outpatient (BNVA) | payer BC, MEDICAID, SELFPAY | PROVIDERS: PCP Nurse Practitioner Family; Visit Provider Nurse Practitioner Women's Health | DX: Z34.90 Encounter for supervision of normal pregnancy, unspecified, unspecified trimester (principal) | CPT/HCPCS: 84315 ==

== ENCOUNTER → 2025-03-29 09:18 | Outpatient (BNVA) | payer BC, MEDICAID, SELFPAY | PROVIDERS: PCP Nurse Practitioner Family; Visit Provider Obstetrics & Gynecology | DX: Z3A.36 36 weeks gestation of pregnancy (principal) | CPT/HCPCS: 84315; 87081 ==

== ENCOUNTER → 2025-04-05 08:15 | Outpatient (BNVA) | payer BC, MEDICAID, SELFPAY | PROVIDERS: PCP Nurse Practitioner Family; Visit Provider Obstetrics & Gynecology | DX: O26.893 Other specified pregnancy related conditions, third trimester (principal); Z3A.37 37 weeks gestation of pregnancy | CPT/HCPCS: 84315 ==

== ENCOUNTER → 2025-04-12 08:19 | Outpatient (BNVA) | payer BC, MEDICAID, SELFPAY | PROVIDERS: PCP Nurse Practitioner Family; Visit Provider Obstetrics & Gynecology | DX: Z34.90 Encounter for supervision of normal pregnancy, unspecified, unspecified trimester (principal) | CPT/HCPCS: 84315 ==

== ENCOUNTER → 2025-04-19 08:19 | Outpatient (BNVA) | payer BC, MEDICAID, SELFPAY | PROVIDERS: PCP Nurse Practitioner Family; Visit Provider Obstetrics & Gynecology | DX: Z34.90 Encounter for supervision of normal pregnancy, unspecified, unspecified trimester (principal) | CPT/HCPCS: 84315 ==

== ENCOUNTER 2025-04-20 18:45 | Inpatient (IN) | payer BC, MEDICAID, SELFPAY ==
[2025-04-20] VITALS (9 sets, daily range): BP systolic 116–133; BP diastolic 65–84; PULSE 75–95; BMI 44.1
--- OUTSIDE RECORDS SUMMARY | 2025-04-20 19:27 | XMS_ITS | Clinical Summary ---
Author Organization [facility] Address [address] [place] [address] Care Team Providers Care On Call Name Role Phone Katheryn Kyle MD Primary Care Provider Unavail able Allergies Active Allergy Reactions Criticality Noted Date Comments Adhesive Hives High 03/18/2017 Latex Hives High 03/18/2017 Medications citalopram (CeleXA) 10 mg tablet Take 10 mg by mouth daily. Active penicillin V potassium (VEETID) 500 mg tablet Take 1 Tablet (500 mg) by mouth 4 times daily. 28 Tablet 08/05/2017 Active oxyCODONE-aceta minophen (PERCOCET) 5-325 mg tablet Take 1 Tablet by mouth every 4 hours as needed for Pain, Moderate. Max Daily Amount: 6 Tablets 30 Tablet 08/05/2017 Active ibuprofen (MOTRIN) 800 mg tablet Take 1 Tablet (800 mg) by mouth every 6 hours as needed for Pain, Mild. 30 Tablet 08/05/2017 Active sulfamethoxazol e-trimethoprim (BACTRIM) 400-80 mg tablet Take 1 Tablet by mouth 2 times daily. Active Active Problems Problem Noted Date Diagnosed Date Dental impaction 03/31/2017 Immunizations Immunization Administration Dates Next Due (M-M-R II/PRIORIX)(12 MO UP) MEASLES, MUMPS AND RUBELLA VIRUS VACCINE, 0.5 ML IM/SUBCUT 11/08/2005,11/04/2001 (VARIVAX)(12 MOS UP)VARICELL A VIRUS VACCINE (PF) 0.5 ML, SUB CUT 08/05/2001 Dt Dtp Dtap Vaccine 11/08/2005, 2,04/21/2001,2000,2000 HIB, Unspecified Formulation 11/04/2001, 04/21/2001,01/16/2001,2000 Hepatitis A Vaccine 11/08/2005 Hepatitis B Vaccine 04/21/2001,2000,2000 IPV/OPV 11/08/2005, 2,01/16/2001,2000 Social History Tobacco Use Types Packs/Day Years Used Date Smoking Tobacco: Never Smokeless Tobacco: Never Alcohol Use Standard Drinks/Week Comments No 0 (1 standard drink = 0.6 oz pur e alcohol) Comments Unknown Sex and Gender Information Value Date Recorded Sex Assigned at Not on file Legal Sex Female 3:23 AM MULTIMEDIA SERVICES COORDINATOR Gender Identity Not on file Sexual Orientation Not on file Last Filed Vital Signs Vital Sign Reading Time Taken Comments Blood Pressure 111/77 08/05/2017 8:36 AM CDT Pulse 76 08/05/2017 8:36 AM CDT Temperature - - Respiratory Rate - - Oxygen Saturation 100% 08/05/2017 8:36 AM CDT Inhaled Oxygen Concentration - - Weight 63.5 kg (140 lb) 03/18/2017 3:06 PM MULTIMEDIA SERVICES COORDINATOR Height 154.9 cm (5' 1 ) 03/18/2017 3:06 PM MULTIMEDIA SERVICES COORDINATOR Body Mass Index 26.45 03/18/2017 3:06 PM MULTIMEDIA SERVICES COORDINATOR Plan of Treatment Health Maintenance Due Date Last Done Comments DTAP/TDAP/TD VACCINES (6 - Tdap) 08/05/2011 11/08/2005, 11/04/2001, 04/21/2001, Additional history exists HPV VACCINES (1 - 3-dose series) 08/05/2015 CERVICAL CANCER SCREENING 2021 HPV/Cotest (21-29) 2021 PAP SMEAR 2021 INFLUENZA VACCINE (#1) 2024 HEPATITIS B VACCINES Completed 04/21/2001, 2000, 2000 Insurance [facility] [address] [place] [address] [facility] Care Teams On Call Relationship Specialty Start Date End Date Katheryn Kyle MD PCP - General 05/15/07
--- OUTSIDE RECORDS SUMMARY | 2025-04-20 19:27 | XMS_ITS | Encounter Summary ---
Author Organization [facility] Address [address] [place] [address] Care Team Providers Care Fire Extinguisher Mechanic Name Role Phone Katheryn Kyle MD Primary Care Provider Unavail able Encounter Details Date Type Department Care Team (Latest Contact Info) Description 03/27/2005 Outpatient Historical [facility] [address] [place] [address] Katheryn Kyle MD NO ADDRESS ON FILE NONINFEC GASTROENTERIT NEC (Primary Dx) Social History Tobacco Use Types Packs/Day Years Used Date Smoking Tobacco: Never Assessed Comments Unknown Sex and Gender Information Value Date Recorded Sex Assigned at Not on file Legal Sex Female 3:23 AM SURFACE LOGGING SYSTEMS LOGGER Gender Identity Not on file Sexual Orientation Not on file documented as of this encounter Plan of Treatment Not on file documented as of this encounter Visit Diagnoses Diagnosis Other and unspecified noninfectious gastroenteritis and colitis(558.9)- Primary Other and unspecified noninfectious gastroenteritis and colitis documented in this encounter Care Teams Fire Extinguisher Mechanic Relationship Specialty Start Date End Date Katheryn Kyle MD PCP - General 05/15/07 documented as of this encounter
--- OUTSIDE RECORDS SUMMARY | 2025-04-20 19:27 | XMS_ITS | Encounter Summary ---
Author Organization [facility] Address [address] [place] [address] Care Team Providers Care Transitional Kindergarten Teacher Name Role Phone Katheryn Kyle MD Primary Care Provider Unavail able Encounter Details Date Type Department Care Team (Late st Contact Info) Description 03/18/2017 Ancillary Orders [facility] Oral [facility] Max[facility] Surgery[address] [place] [id number] Jean-Paul Perez Jr., DMD NO ADDRESS ON FILE Impacted teeth with abnormal position Social History Tobacco Use Types Packs/Day Years Used Date Smoking Tobacco: Never Smokeless Tobacco: Never Alcohol Use Standard Drinks/Week Comments No 0 (1 standard drink = 0.6 oz pur e alcohol) Comments Unknown Sex and Gender Information Value Date Recorded Sex Assigned at Not on file Legal Sex Female 3:23 AM WOUND CARE CENTER CONSULTANT Gender Identity Not on file Sexual Orientation Not on file documented as of this encounter Plan of Treatment Not on file documented as of this encounter Results * XR PANOREX (04/03/2017 1:34 PM WOUND CARE CENTER CONSULTANT) Anatomical Region Laterality Modality Head Computed Radiogr aphy Narrative 04/11/2017 2:44 PM WOUND CARE CENTER CONSULTANT Impacted third molars Condyle seated in the fossa No signs of any bony pathology No signs of any infection Jean-Paul Perez Jr., DMD DIAGNOSTIC IMAGING ORDERABLES Final Result documented in this encounter Visit Diagnoses Diagnosis Impacted teeth with abnormal position Disturbances in tooth eruption Impacted teeth with abnormal position Disturbances in tooth eruption documented in this encounter Care Teams Transitional Kindergarten Teacher Relationship Specialty Start Date End Date Katheryn Kyle MD PCP - General 05/15/07 documented as of this encounter
--- OUTSIDE RECORDS SUMMARY | 2025-04-20 19:27 | XMS_ITS | Data Portability ---
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 She is currently and the risk of an xray outweighs the benefit of an xray. Will consider an xray after she has completed her . Not available 12/29/2024 15:03:18 04/02/2025 04/02/2025 Patient reports she's been feeling badly for about 3 weeks now. She had rhinovirus and then just lingering symptoms. Not available 04/02/2025 11:16:39 Plan of Treatment Reminders Order Date Submit Date Provider Last Modified By Organization Details Last Modified Time Details Appointments None recorded. Lab pharyngeal pathogens DNA and RNA panel, STACIA+non-pro be, throat 2024 025 [facility] ([facility]), [address] [place] [address], [phone], 13:54:30 pharyngeal pathogens DNA and RNA panel, STACIA+non-pro be, throat 2024 025 [facility] ([facility]), [address] [place] [address], [phone], 11:45:57 Referral None recorded. Procedures None recorded. Surgeries None recorded. Imaging None recorded. Medication Orders amoxicillin 875 mg tablet 2024 025 [facility] [place], [address] [place], [address], 05:01:49 Patient TargetsNo targets recorded. Patient Instructions Encounter Date Encounter Id Patient Instructions Last Modified By Organization Details Last Modified Time 12/29/2024 [id number] back care and preventing injuries: care instructions Not available 12/29/2024 15:03:19 Call or return for questions or concerns. Not available 12/29/2024 15:01:28 04/02/2025 [id number] Call or return for questions or concerns. Not available 04/02/2025 11:19:35 Reason for Referral None Reported. Results Created Date Observation Date Name Description Value Unit Range Abnormal Flag Note LastModifiedBy Organization Detail LastModifiedTime 03/06/2003/06/2025 phary ngeal patho gens DNA and RNA panel , STACIA+n on-pr obe, throa t Strep A negati ve Not Available [facility] ([facility]) [address] [place] [address], [phone], 03/06/2025 11:10:38 03/06/2003/06/2025 phary ngeal patho gens DNA and RNA panel , STACIA+n on-pr obe, throa t Rhinovirus positi ve Not Available [facility] ([facility]) [address] [place] [address], [phone], 03/06/2025 11:10:38 03/06/2003/06/2025 phary ngeal patho gens DNA and RNA panel , STACIA+n on-pr obe, throa t RSV negati ve Not Available [facility] ([facility]) [address] [place] [address], [phone], 03/06/2025 11:10:38 03/06/2003/06/2025 phary ngeal patho gens DNA and RNA panel , STACIA+n on-pr obe, throa t Influenza A negati ve Not Available [facility] ([facility]) [address] [place] [address], [phone], 03/06/2025 11:10:38 03/06/2003/06/2025 phary ngeal patho gens DNA and RNA panel , STACIA+n on-pr obe, throa t Influenza B negati ve Not Available [facility] ([facility]) [address] [place] [address], [phone], 03/06/2025 11:10:38 03/26/2003/26/2025 phary ngeal patho gens DNA and RNA panel , STACIA+n on-pr obe, throa t Strep A negati ve Not Available [facility] ([facility]) [address] [place] [address], [phone], 03/26/2025 13:22:40 03/26/2003/26/2025 phary ngeal patho gens DNA and RNA panel , STACIA+n on-pr obe, throa t Rhinovirus negati ve Not Available [facility] ([facility]) [address] [place] [address], [phone], 03/26/2025 13:22:40 03/26/2003/26/2025 phary ngeal patho gens DNA and RNA panel , STACIA+n on-pr obe, throa t RSV negati ve Not Available [facility] ([facility]) [address] [place] [address], [phone], 03/26/2025 13:22:40 03/26/2003/26/2025 phary ngeal patho gens DNA and RNA panel , STACIA+n on-pr obe, throa t Influenza A negati ve Not Available [facility] ([facility]) [address] [place] [address], [phone], 03/26/2025 13:22:40 03/26/20 25 03/26/2025 phary ngeal patho gens DNA and RNA panel , STACIA+n on-pr obe, throa t Influenza B negati ve Not Available [facility] ([facility]) [address] [place], [address], 03/26/2025 13:22:40 Result Notes None recorded. Problems Name Problem SNOMED Code Status Onset Date Resolution Date Notes Provider Name and Address Organization Details Recorded Time Anxiety state 320991089 Completed 201909/04/2019 anxiety - Status is Inactive ; 09/04/19 9:36AM by Valerie Mckeon CMT, Annotati on/Adden dum; Promoted ; acuity set as *; Not Available [facility] 3 03:15:31 Attentio n deficit hyperact ivity disorder 115266845 Completed 201909/04/2019 ADHD - Status is Inactive ; 09/04/19 9:36AM by Valerie Mckeon CMT, Annotati on/Adden dum; Promoted ; acuity set as *; Not Available [facility] 3 03:15:35 [facility] hyper[facility]ry 63990091 Active 2024 VALERIE evangelista [facility] 5 16:45:48 Gastroes ophageal reflux disease without esophagi tis 998767478 Active 2024 VALERIE evangelista [facility] 5 16:45:50 Problem Notes None recorded. Procedures Surgical History Date Name Laterality Status Provider Name and Address Organization Details Recorded Time 07/22/19 plain X-ray of foot completed VALERIE MCKEON [facility] 07/23/2024 18:53:49 09/12/19 24 US scan of gallbladder completed VALERIE MCKEON [facility] 09/12/2023 16:46:42 11/01/20 23 diagnostic radiography of lumbar spine completed VALERIE MCKEON [facility] 03/25/2023 15:14:07 extraction of wisdom tooth completed Ainsley Ashvin [facility] 12/13/2023 15:01:45 cholecystostomy completed VALERIE MIKE [facility] 07/21/2024 10:25:09 Imaging Results None recorded. Procedure Notes None recorded. Medical Equipment None Reported. Allergies Allergen ID Allergen Name Allergen Category Reaction Reaction Severity Criticality Documentation Date Start Date Code Code System Note Provider Name and Address Organization Details Recorded Time 16822 adhesive tape environme nt,medica tion Not available Not available Not available 12/08/2022 VALERIE evangelista [facility] 16:45:29 44832 latex environme nt,medica tion hives Not available Not available 12/08/2022 47226 91 RxNorm VALERIE evangelista [facility] 16:45:35 Medications Name Sig Start Date Stop Date Status Note LastModified by Organization Details LastModified Time doxycycli ne hyclate 100 mg capsule Take 1 capsule twice a day by oral route for 7 days. 02/18 completed Not Available Not Available Not Available tizanidin e 2 mg tablet Take 1 tablet 3 times a day by oral route as needed, for back spasm. 12/04 completed Not Available Not Available Not Available azithromy candace 250 mg tablet TAKE 2 TABLETS BY MOUTH ON DAY 1, THEN TAKE 1 TABLET DAILY ON DAYS 2-5 06/04 completed Not Available Not Available Not Available ibuprofen 800 mg tablet TAKE 1 TABLET BY MOUTH THREE TIMES DAILY 10/16 completed Not Available Not Available Not Available benzonata te 200 mg capsule take 1 capsule BY MOUTH THREE TIMES DAILY 07/20 completed Not Available Not Available Not Available prednison e 20 mg tablet Take 2 tablets every day by oral route for 5 days. 07/21 completed Not Available Not Available Not Available Tubersol 5 tub. unit/0.1 mL intraderm al injection solution Inject 0.1 mL by intrader mal route. 03/13 completed Not Available Not Available Not Available Milk of Magnesia 400 mg/5 mL oral suspensio n take 15ml BY MOUTH TWICE DAILY NEEDED FOR constipa tion active Not Available Not Available No t Available triamcino lone acetonide 0.1 % topical cream two times daily, as needed 03/13 completed apply sparingl y to rash bid prn itch; Recorded 08/17/19 22 9:51AM by Valerie Mckeon CMT, Office Visit; Refill Quantity : 60; Unspecif ied; Not Available Not Available Not Available ondansetr on 8 mg disintegr ating tablet Place 1 tablet every 8 hours by translin gual route as needed. 09/04 completed Not Available Not Available Not Available meloxicam 7.5 mg tablet TAKE 1 TABLET BY MOUTH EVERY DAY for 7 days 12/12 completed Not Available Not Available Not Available betametha sone acetate and sodium phos 6 mg/mL suspensio n for injection Take 1 mL by injectio n route. 02/17 completed Not Available Not Available Not Available amoxicill in 875 mg tablet Take 1 tablet every 12 hours by oral route for 10 days. 04/19 completed Not Available Not Available Not Available amitripty line 25 mg tablet TAKE 1 TABLET BY MOUTH EVERY DAY active Not Available Not Available No t Available metoclopr amide 5 mg tablet TAKE 1 TABLET BY MOUTH EVERY DAY active Not Available Not Available No t Available amitripty line 10 mg tablet TAKE 1 TABLET BY MOUTH EVERY DAY AT BEDTIME 02/18 completed Not Available Not Available Not Available cephalexi n 500 mg capsule Take 1 capsule 3 times a day by oral route for 7 days. 12/18 completed Not Available Not Available Not Available docusate sodium 100 mg capsule take 1 capsule BY MOUTH TWICE DAILY 10/16 completed Not Available Not Available Not Available omeprazol e 20 mg capsule,d elayed release TAKE 2 CAPSULES BY MOUTH EVERY DAY FOR HEARTBUR N active Not Available Not Available No t Available hydroxyzi ne HCl 25 mg tablet Take 1 tablet 3 times a day by oral route as needed for 14 days. 2022 active Not Available Not Available Not Avai lable mupirocin 2 % topical ointment apply a small amount TO THE affected area THREE TIMES DAILY 03/06 completed Not Available Not Available Not Available labetalol 100 mg tablet TAKE 1 TABLET BY MOUTH TWICE DAILY 2024 active Not Available Not Available Not Avai lable naproxen 500 mg tablet TAKE 1 TABLET BY MOUTH TWICE DAILY NEEDED FOR PAIN 12/04 completed Not Available Not Available Not Available amoxicill in 875 mg-potass ium clavulana te 125 mg tablet TAKE 1 TABLET BY MOUTH TWICE DAILY for 5 days 12/12 completed Not Available Not Available Not Available oxycodone 5 mg tablet TAKE 1 TABLET BY MOUTH EVERY 8 HOURS NEEDED FOR PAIN for 5 days 12/12 completed Not Available Not Available Not Available aspirin active Not Available Not Avail able Not Available active Not Available Not Avai lable Not Available ondansetr on HCl (PF) 4 mg/2 mL injection solution Take 4 mg every day by injectio n route for 1 day. 09/04 completed Not Available Not Available Not Available Tri-VyLib ra (28) 0.18 mg(7)/0.2 15 mg(7)/0.2 5 mg(7)-0.0 35 mg tablet TAKE 1 TABLET BY MOUTH EVERY DAY 02/17 completed Not Available Not Available Not Available Vitals Date Recorded Body height Body mass index (BMI) Body weight Oxygen saturation Heart rate Respiratory rate Systolic And Diastolic Provider Name and Address Organization Details Last Updated DateTime 5 154.94 cm 42.9 kg/m2 314477. 47 g 96 % 106 /min 22 /min 128/68 mm[Hg] VALERIE MCKEON [facility] 5 14:30:45 Date Recorded Body height Body mass index (BMI) Body weight Oxygen saturation Heart rate Body temperature Respiratory rate Provider Name and Address Organization Details Last Updated DateTime 5 154.94 cm 43.6 kg/m2 624446. 84 g 98 % 113 /min 98.2 [degF] 16 /min Alicia Alexander [facility] 10/25/202 5 11:24:04 Date Recorded Body height Body mass index (BMI) Body weight Body temperature Oxygen saturation Heart rate Systolic And Diastolic Provider Name and Address Organization Details Last Updated DateTime 5 154.94 cm 43.2 kg/m2 149326. 16 g 98 [degF] 98 % 110 /min 138/86 mm[Hg] Valerie Soha [facility] 5 13:21:00 Date Recorded Body height Oxygen saturation Heart rate Respiratory rate Body temperature Systolic And Diastolic Provider Name and Address Organization Details Last Updated DateTime 5 154.94 cm 98 % 90 /min 16 /min 98.2 [degF] 140/86 mm[Hg] Alicia Alexander [facility] 5 12:18:31 Date Recorded Body height Body mass index (BMI) Body weight Oxygen saturation Heart rate Respiratory rate Provider Name and Address Organization Details Last Updated DateTime 5 154.94 cm 43.8 kg/m2 036063. 43 g 98 % 106 /min 22 /min VALERIE MCKEON [facility] 5 10:55:56 Social History Question Answer Notes LastModified by Move Lootizat ion Details LastModified Time Tobacco Smoking Status Never Smoker VALERIE MCKEON [facility] 04/25/2023 15:47:12 What Was The Date Of Your Most Recent Tobacco Screening? 03/31/2025 [email or web address] Information not available 03/31/2025 What Is Your Relationship Status? Domestic Partner [email or web address] Information not available 04/25/2023 Sex: Unknown Functional Status Question Answer Note LastModified by Organizat ion Details LastModified Time Do you use any illicit or recreational drugs? No [email or web address] Information not available 04/25/2023 Do you or have you ever used any other forms of tobacco or nicotine? No Information not available 03/24/2024 What is your level of alcohol consumption? Occasional [email or web address] Information not available 12/13/2023 Are you currently employed? Yes [email or web address] Information not available 04/25/2023 Are you able to care for yourself independently? Yes [email or web address] Information not available 04/25/2023 Do you or have you ever used any nicotine-free cigarettes, vape, or chewing tobacco? No Information not available 03/24/2024 Mental Status None recorded. Family History Relationship Description Onset Age of this Age Resolved Age Notes LastModified by Organization Details LastModified Time Father Essential hypertension [email or web address] Not available 15:46:54 Mother Essential hypertension Not available 15:46:54 Medical History Condition Response Anxiety Disorder Y Headaches Y Reflux/GERD Y Hypertension Y Gynecological HistoryNo gynecological history recorded. Obstetrics History GPAL:G 0 P 0 0 0 0 Immunizations Vaccine Type Date Status Note Provider Nam e and Address Organization Details Recorded Time [facility]9 5 [facility] 10/10/2022 18:47:09 IPV 1 [facility] 10/10/2022 18:47:09 IPV 2 completed [facility] 10/10/2022 18:47:09 IPV 1 completed [facility] 10/10/2022 18:47:09 MMR [address] [facility] 10/10/2022 18:47:09 Tdap 4 [facility] 10/10/2022 18:47:09 varicella 2 [facility] 10/10/2022 18:47:09 Hep B, unspecified formulation 1 [facility] 10/10/2022 18:47:09 HPV, quadrivalent 5 completed TAMATHA GREEN null, [facility] 10/10/2022 18:47:09 HPV, quadrivalent 5 completed TAMATHA GREEN [facility], [facility] 10/10/2022 18:47:09 Hep B, adolescent or pediatric 1 completed TAMATHA GREEN null, [facility] 10/10/2022 18:47:09 Hep B, adolescent/high risk infant 1 [facility] 10/10/2022 18:47:09 Hep A, ped/adol, 2 dose 5 [facility] 10/10/2022 18:47:09 Hep A, ped/adol, 2 dose [facility] 10/10/2022 18:47:09 Hib (PRP-T) 1 [facility] 10/10/2022 18:47:09 Hib (PRP-T) 2 [facility] 10/10/2022 18:47:09 Hib (PRP-T) 1 [facility] 10/10/2022 18:47:09 Hib (PRP-T) 1 [facility] 10/10/2022 18:47:09 meningococcal MCV4P 8 [facility] 10/10/2022 18:47:09 DTaP 1 completed TAMATHA GREEN null, [facility] 10/10/2022 18:47:09 DTaP 2 completed TAMATHA GREEN null, [facility] 10/10/2022 18:47:09 DTaP 1 completed TAMATHA GREEN null, [facility] 10/10/2022 18:47:09 DTaP 1 completed TAMATHA GREEN null, [facility] 10/10/2022 18:47:09 Influenza, split virus, quadrivalent, PF 9 completed TAMATHA GREEN null, [facility] 10/10/2022 18:47:09 Past Encounters Encounter ID Performer Location Encounter Start Date Encounter Closed Date Diagnosis/Indication Diagnosis SNOMED-CT Code Diagnosis ICD10 Code Diagnosis IMO Codes Diagnosis Note [id number] JEN SOUZA [facility] ([facility]) [address] [place] [id number] 10/10/2022 17:55:13 11/20/2022 17:34:08 Viral gastroenteritis 602628045 A08.4 Encouraged patient to push fluids. Discussed with patient that due to improvemen t in symptoms, no additional medication s are needed at this time. Can continue immodium use until feeling better. Can return to work once fever and diarrhea free for 24 hours. If worsening symptoms or no improvemen t in 5-7 days, return for further evaluation . [id number] CANDIDA PRICE [facility] ([facility]) [address] [place] [id number] 10/16/2022 09:31:27 10/16/2022 13:11:24 Tuberculosis screening 278060499 Z11.7 [id number] JEN SOUZA [facility] ([facility]) [address] [place] [id number] 5 11/29/2022 19:28:40 12/06/2022 15:34:25 Pain of right hand 3534639472 48872 M79.641 Suspected hematoma. Patient declined x-ray tonight. Recommend ice three times daily for any swelling. Can take tylenol/ib uprofen as needed for pain. If worsening pain or no improvemen t in 2-5 days, should be re-evaluat ed for probable x-ray. Patient verbalizes understand ing. [id number] JEN SOUZA [facility] ([facility]) [address] [place] [id number] 5 02/13/2023 13:05:11 02/13/2023 14:31:38 Missed period 95902985 N92.5 Will check beta HCG today. Discussed with patient that due to irregular cycles, if this is negative she will likely need to see PCP and start on a combo control to help regulate cycles. Patient is agreeable to this. Will call with results. [id number] CANDIDA PRICE [facility] ([facility]) [address] [place] [id number] 5 03/13/2023 12:30:38 03/13/2023 15:48:29 Irregular periods 75806462 N92.6 Low back pain 519122335 M54.50 Chronic pain. [id number] JEN SOUZA [facility] ([facility]) [address] [place] [id number] 04/08/2023 16:29:55 07/01/2023 06:07:06 Anxiety 20353776 F41.9 Discussed with patient that I do feel that these HAs and high BP readings are stress and anxiety related. Encouraged patient to keep a log of BP morning and evening for 2 weeks and follow up with PCP to discuss BP. Will start hydroxyzin e PRN TID for anxiety. Discussed with patient the risks and benefits of this medication . Patient instructed to not take this medication before driving or going to work as it can cause drowsiness . Patient is agreeable to plan of care. If any chest pain or SOB occurs, need to go to ED. patient verbalizes understand ing. [id number] CANDIDA PRICE [facility] ([facility]) [address] [place] [address] 04/25/2023 14:50:28 04/25/2023 16:34:42 Essential hypertension 48794293 I10 She will continue to monitor blood pressure at home. [id number] LATANYA PEARSON [facility] ([facility]) [address] [place] [id number] 5 06/06/2023 15:47:33 06/06/2023 17:55:12 Essential hypertension 47208557 I10 [id number] ANITA AVILA PA-C [facility] ([facility]) [address] [place] [id number] 5 06/09/2023 14:10:24 06/09/2023 14:56:06 Viral gastroenteritis 111730845 A08.4 [id number] LATANYA PEARSON [facility] ([facility]) [address] [place] [id number] 09/05/2023 09:57:16 09/05/2023 10:48:20 Abdominal pain 73220271 R10.11 Gastroesop hageal reflux disease without esophagitis 239735167 K21.9 Daily headache 018399869 1 03 R51.9 Essential hypertension 82704707 I10 [id number] LATANYA PEARSON [facility] ([facility]) [address] [place] [id number] 5 09/12/2023 11:50:44 09/13/2023 09:52:50 [id number] LATANYA PEARSON [facility] ([facility]) [address] [place] [id number] 5 10/03/2023 10:19:09 10/03/2023 11:21:27 Gastroesophageal reflux disease 066165854 K21.9 Improved. Frequent headache 569021 003 R51.9 Improved. Essential hypertension 65183986 I10 Continue on labetalol. [id number] IAN GRIJALVA [employer] DIRECTOR [facility] ([facility]) [address] [place] [id number] 5 12/13/2023 14:46:59 12/13/2023 18:29:08 Contact dermatitis caused by urushiol from [facility] 627800622 L25.5 I counseled pt on dx of contact dermatitis , likely poision kelton. pt to take a zyrtec/cla ritin every morning then benadryl at night. OTC topicals such as Kelton Rest, Calamine, steroid creams, etc may be used for the itching. Return to office with no improvemen t or any problems. [id number] IAN GRIJALVA [facility] ([facility]) [address] [place] [address] 5 02/18/2024 10:29:16 02/18/2024 17:13:52 Sore throat 026018142 J02.9 Acute pansinusitis 91587 02 J01.40 Discussed use of antibiotic . Take with food.May use Andriy's nasal inserts and also apply on chest. Push oral fluids. Consider nasal saline rinses and otc decongesta nt.Use tylenol/mo archie for suarez. [id number] LATANYA PEARSON [facility] ([facility]) [address] [place], [place] [address] 02/19/2024 14:53:08 02/19/2024 16:12:01 Daily headache 3663285078 03 R51.9 Gastroesop hageal reflux disease without esophagitis 904496344 K21.9 [id number] LATANYA PEARSON [facility] ([facility]) [address] [place] [id number] 5 03/24/2024 14:14:39 03/25/2024 14:09:08 Influenza vaccination declined 687307948 Z28.21 Venereal d isease screening 476358810 Z11.3 Heartburn 83381374 R12 Improved with omeprazole . Daily headache 534010151 1 03 R51.9 Improved with amitriptyl ine. [id number] Haim Navas MD [facility] ([facility]) [address] [place] [address] 5 05/14/2024 15:23:30 05/16/2024 18:25:19 Sore throat 512295049 J02.9 Strep test was negative. Acute saray l pharyngitis 140410995 J02.9 Patient presented with symptoms of viral upper respirator y infection. Advised to drink plenty of fluids, run a cool-mist humidifier in room at night, gargle salt water for sore throat, and get plenty of rest. Patient should avoid over-exert ion and reduce exposure to irritants such as smoke, cold, dry air, and dust. Treatment currently involves symptomati c relief. Patient may take acetaminop hen or ibuprofen as directed to reduce fever and body aches. Antihistam ine and decongesta nt usage was discussed and recommenda tions made. Patient understood these instructio ns and will follow up in the office in 7-10 days if symptoms not improving. [id number] Haim Navas MD [facility] ([facility]) [address] [place] [address] 10185-488 5 05/28/2024 18:33:26 06/01/2024 10:06:45 Acute bacterial bronchitis [id number] J20.9 Will go ahead and treat for bacterial infection given duration of symptoms. Continue supportive care. [id number] LATANYA PEARSON PUBLIC WELFARE DIRECTOR [facility] ([facility]) [address] [place] [address] [phone] 5 06/04/2024 12:03:40 06/04/2024 12:55:18 Chronic daily headache [id number] 91188 R51.9 Continue amitriptyl ine. Essential hypertension 14310620 I10 Continue on labetalol. Gastroesop hageal reflux disease without esophagitis 137880398 K21.9 Continue omeprazole . [id number] IAN GRIJALVA PUBLIC WELFARE DIRECTOR [facility] ([facility]) [address] [place] [address] 62710-645 5 07/20/2024 12:34:47 07/20/2024 13:06:59 Low back pain 696099134 M54.50 Discussed to take 400mg ibuprofen twice a day for next 5 days with food.Use tizanidine as prescribed .Apply a heating pad for 10 minutes every 2 hours while awake. Perform slow stretches 2 times a day.F/u with PCP in 4-5 days if symptoms persist or worsen. [id number] CANDIDA PRICE [facility] ([facility]) [address] [place] [address] 36578-672 5 07/21/2024 10:14:36 07/21/2024 10:51:31 Pain in right foot [id number] 73176 M79.769 [id number] IAN GRIJALVA [facility] ([facility]) [address] [place] [address] [phone] 5 12/04/2024 18:23:51 12/04/2024 18:56:25 Acute cellulitis 2760158010 L03.90 [id number] Discussed use of prescribed medication s. Keep the skin covered; no further sun exposure until this heals. No fever. Pt to f/u if she develops fever or worsening redness. [id number] LATANYA PEARSON [facility] ([facility]) [address] [place] [address] [phone] 5 12/29/2024 14:19:51 12/29/2024 15:07:19 Chronic low back pain 041192941 M54.42 M54.41 G89.29 18680274 Chronic pain. Sciatic worse down left leg. Reviewed previous xray from 03/2023 with patient, no indication of scoliosis. She will think about PT and let us know if home exercises do not help. [id number] TARIQ NAVARRETE [facility] ([facility]) [address] [place] [address] [phone] 5 03/06/2025 11:08:17 03/06/2025 14:08:52 Acute upper respiratory infection 66094832 J06.9 802618 Disease ca used by Rhinovirus 37425637 B34.8 525117 May use otc meds like zyrtec and fluticason e nasal spray as needed for symptoms. Return to clinic with any new or worsening symptoms. [id number] IAN GRIJALVA [facility] ([facility]) [address] [place] [address] [phone] 5 03/26/2025 13:08:21 03/26/2025 18:49:21 Acute upper respiratory infection 40035756 J06.9 513358 [id number] IAN GRIJALVA [facility] ([facility]) [address] [place] [address] [phone] 5 03/31/2025 12:11:41 03/31/2025 12:33:44 Viral upper respiratory tract infection 950762831 J06.9 766969 [id number] CANDIDA PRICE [facility] ([facility]) [address] [place] [address] 04/02/2025 10:49:51 04/02/2025 11:32:10 Bacterial sinusitis 950033407 J32.9 B96.89 1997886 Gestation period, 37 weeks 37915412 Z3A.37 3164555 Uvulitis 320425715 K12.2 45601 Improving Health Concerns Section Related Observation LastModified by Organization Detai ls LastModified Time None Recorded Concern Status LastModified by Organization Details LastModified Time None Recorded Advance Directives Directive None Recorded Payers Insurance Date Sequence Insurance Name Policy Number Policy Giels Covered Member ID Giles Member ID Guarantor Name 03/06/2025 1 [facility] - [place] Cady Fredy Samson [id number] Cady Fredy Samson 03/06/2025 1 [employer] [employer] PLAN (EPO) Cady Fredy Samson [id number] Cady L Chapin 03/06/2025 2 [place] Cady Fredy Samson [id number] Cady L Chapin 10/10/2022 1 *SELF PAY* Au dri L Chapin 03/06/2025 1 [employer] [employer]BET[employer] FROM [employer] HEATLH PLAN (EPO) Cady Fredy Samson [id number] Cady L Chapin 04/25/2023 1 *SELF PAY* Au dri L Chapin 03/06/2025 1 [place] Cady L Chapin [id number] Cady L Chapin 03/06/2025 1 [employer] [employer] AMBETTER FROM HOME STATE HEATLH PLAN (EPO) Cady L Samson [id number] Cady L Chapin 03/06/2025 1 [employer]BET[employer] FROM [employer] [place] (HMO) Cady L Samson [id number] Cady L Samson 03/06/2025 1 [employer] AMBET[employer] FROM [employer] STATE HEATLH PLAN (EPO) Cady L Chapin [id number] Cady L Chapin 03/06/2025 2 [facility] [place]) Cady L Samson [id number] Cady Samson 03/06/2025 1 [employer]BET[employer] FROM [employer] HEATLH PLAN (EPO) Cady Samson [id number] Cady Samson 04/01/2025 1 [employer]AC[place] - [place]) [id number] Cady L Chapin [id number] Cady Samson 03/26/2025 [place] [facility] [id number] Cady Samson [id number] Cady Samson Notes Date Note Type Note Provider Name and Address Organization Details Recorded Time 5 text/html Back PainReported by PatientHPIFor location, patient reportsradiation to buttocks leftandradiation to leg left. For severity, patient reportsworseningandpain level 8/10. For quality, patient reportssharp. For duration, patient reports2 years(pain off and on for 2 years but worse over the last 2 weeks.). For timing, patient reportsintermittent. For associated symptoms, patient reportsno weakness,no numbness, andno tingling. For previous injury, patient reportsno prior back injury. For prior imaging, patient reportsnone. LATANYA PEARSON, [address], [address], [facility] 12/29/2024 15:04:22 5 text/html Sore ThroatReported by PatientROS as noted in the HPI walk in patientpatient is here today for sore throat, cough and congestion that started this morning when wakeningpatient is 33 weeks TARIQ NAVARRETE [facility] [address] [place], [address], [facility] 03/06/2025 12:06:55 5 text/html ROS as noted in the HPI Walk in35 & 6 weeks gest.In office x3 weeks ago. Positive for Rhino. Now states cough, green phlegm, congestion, runny nose x1 day. IAN GRIJALVA [facility] [address] [place], [address], [facility], [place] 03/26/2025 18:45:58 5 text/html Sinusitis/AllergyReported by PatientROS as noted in the HPI walk in patientpatient is here today for sinus congestion, sore throat, and drainage, patient was here on 03/26/25 and negative testing, on 03/06/25 she tested positive for RhinoPatient states that she is not getting any better. IAN GRIJALVA, [facility] [address] [place], [address], [facility], [place] 03/31/2025 12:32:54 5 text/html CoughReported by PatientHPIFor severity, patient reportsworseningandpain with coughbut reportsmoderate. For associated symptoms, patient reportsnasal discharge,tiredness,difficu lty swallowing, andhoarsenessbut reportsno fever. For quality, patient reportsproductive. For duration, patient reportssubacute (3-8 weeks). For context, patient reportsnon-smoker. LATANYA PEARSON, [facility] [address] [place], [address], [facility], [place] 04/02/2025 11:24:48 OBGyn Episode No OBEpisode recorded.
--- OUTSIDE RECORDS SUMMARY | 2025-04-20 19:27 | XMS_ITS | Continuity of Care Document ---
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 She had rhinovirus and then just lingering symptoms. Not available 04/02/2025 11:16:39 Plan of Treatment Reminders Order Date Submit Date Provider Last Modified By Organization Details Last Modified Time Details Appointments None recorded. Lab None recorded. Referral None recorded. Procedures None recorded. Surgeries None recorded. Imaging None recorded. Medication Orders amoxicillin 875 mg tablet 2024 025 [facility] [place], [address] [place], [address], 05:01:49 Patient TargetsNo targets recorded. Patient Instructions Encounter Date Encounter Id Patient Instructions Last Modified By Organization Details Last Modified Time 04/02/2025 [id number] Call or return for questions or concerns. Not available 04/02/2025 11:19:35 Reason for Referral None Reported. Results Created Date Observation Date Name Description Value Unit Range Abnormal Flag Note LastModifiedBy Organization Detail LastModifiedTime 03/06/2003/06/2025 phary ngeal patho gens DNA and RNA panel , STACIA+n on-pr obe, throa t Strep A negati ve Not Available [facility] ([facility]) [address] [place], [address], 03/06/2025 11:10:38 03/06/2003/06/2025 phary ngeal patho gens DNA and RNA panel , STACIA+n on-pr obe, throa t Rhinovirus positi ve Not Available [facility] ([facility]) [address] [place] [address], [phone], 03/06/2025 11:10:38 03/06/2003/06/2025 phary ngeal patho gens DNA and RNA panel , STACIA+n on-pr obe, throa t RSV negati ve Not Available [facility] ([facility]) [address] [place] [address], [phone], 03/06/2025 11:10:38 03/06/2003/06/2025 phary ngeal patho gens DNA and RNA panel , STACIA+n on-pr obe, throa t Influenza A negati ve Not Available [facility] ([facility]) [address] [place] [address], [phone], 03/06/2025 11:10:38 03/06/2003/06/2025 phary ngeal patho gens DNA and RNA panel , STACIA+n on-pr obe, throa t Influenza B negati ve Not Available [facility] ([facility]) [address] [place] [address], [phone], 03/06/2025 11:10:38 03/26/2003/26/2025 phary ngeal patho gens DNA and RNA panel , STACIA+n on-pr obe, throa t Strep A negati ve Not Available [facility] ([facility]) [address] [place] [address], [phone], 03/26/2025 13:22:40 03/26/2003/26/2025 phary ngeal patho gens DNA and RNA panel , STACIA+n on-pr obe, throa t Rhinovirus negati ve Not Available [facility] ([facility]) [address] [place] [address], [phone], 03/26/2025 13:22:40 03/26/20 25 03/26/2025 phary ngeal patho gens DNA and RNA panel , STACIA+n on-pr obe, throa t RSV negati ve Not Available [facility] ([facility]) [address] [place] [address], [phone], 03/26/2025 13:22:40 03/26/2003/26/2025 phary ngeal patho gens DNA and RNA panel , STACIA+n on-pr obe, throa t Influenza A negati ve Not Available [facility] ([facility]) [address] [place] [address], [phone], 03/26/2025 13:22:40 03/26/2003/26/2025 phary ngeal patho gens DNA and RNA panel , STACIA+n on-pr obe, throa t Influenza B negati ve Not Available [facility] ([facility]) [address] [place] [address], [phone], 03/26/2025 13:22:40 Result Notes None recorded. Problems Name Problem SNOMED Code Status Onset Date Resolution Date Notes Provider Name and Address Organization Details Recorded Time Anxiety state 382399832 Completed 201909/04/2019 anxiety - Status is Inactive ; 09/04/19 9:36AM by Valerie Mckeon CMT, Adriel on/[place]; Promoted ; acuity set as *; Not Available [facility] 3 03:15:31 Attentio n deficit hyperact ivity disorder 640287274 Completed 201909/04/2019 ADHD - Status is Inactive ; 09/04/19 9:36AM by Valerie Mckeon CMT, Annotati on/[place]en dum; Promoted ; acuity set as *; Not Available [facility] 03:15:35 Louise lucas sion 54568581 Active 2024 VALERIE evangelista [facility] LAllieL.CAllie 16:45:48 Gastroes ophageal reflux disease without esophagi tis 682613771 Active 2024 VALERIE evangelista [facility], MarzenaLAllieCAllie 16:45:50 Problem Notes None recorded. Procedures Surgical History Date Name Laterality Status Provider Name and Address Organization Details Recorded Time 07/22/19 25 plain X-ray of foot completed WALTERBORO MIKE [facility]ie 07/23/2024 18:53:49 09/12/19 24 US scan of gallbladder completed [facility] 09/12/2023 16:46:42 03/13/20 23 diagnostic radiography of lumbar spine completed VALERIE MIKE [facility]ie 03/25/2023 15:14:07 extraction of wisdom tooth completed Ainsley Lock [facility]ie 12/13/2023 15:01:45 cholecystostomy completed VALERIE MIKE [facility]ie 07/21/2024 10:25:09 Imaging Results None recorded. Procedure Notes None recorded. Medical Equipment None Reported. Allergies Allergen ID Allergen Name Allergen Category Reaction Reaction Severity Criticality Documentation Date Start Date Code Code System Note Provider Name and Address Organization Details Recorded Time 88217 adhesive tape environme nt,medica tion Not available Not available Not available 12/08/2022 VALERIE evangelista [facility], LAllieLAllieCAllie 16:45:29 29275 latex environme nt,medica tion hives Not available Not available 12/08/2022 93906 91 RxNorm [facility]IE evangelista [facility] 16:45:35 Medications Name Sig Start Date Stop [...] Updated DateTime 5 154.94 cm 43.8 kg/m2 397540. 43 g 98 % 106 /min 22 /min VALERIE MIKE [facility] 5 10:55:56 Social History Question Answer Notes LastModified by [employer] Details LastModified Time Tobacco Smoking Status Never Smoker VALERIE MCKEON [facility] 04/25/2023 15:47:12 What Was The Date Of Your Most Recent Tobacco Screening? 03/31/2025 [email or web address] Information not available 03/31/2025 What Is Your Relationship Status? Domestic Partner [email or web address] Information not available 04/25/2023 Sex: Unknown Functional Status Question Answer Note LastModified by [employer] Details LastModified Time Do you use any illicit or recreational drugs? No [email or web address] Information not available 04/25/2023 Do you or have you ever used any other forms of tobacco or nicotine? No Information not available 03/24/2024 What is your level of alcohol consumption? Occasional [email or web address] Information not available 12/13/2023 Are you currently employed? Yes [email or web address] Information not available 04/25/2023 Are you able to care for yourself independently? Yes [email or web address] Information not available 04/25/2023 Do you or have you ever used any nicotine-free cigarettes, vape, or chewing tobacco? No Information not available 03/24/2024 Mental Status None recorded. Family History Relationship Description Onset Age of this Age Resolved Age Notes LastModified by Organization Details LastModified Time Father Essential hypertension [email or web address] Not available 15:46:54 Mother Essential hypertension [email or web address] Not available 15:46:54 Medical History Condition Response Anxiety Disorder Y Headaches Y Reflux/GERD Y Hypertension Y Gynecological HistoryNo gynecological history recorded. Obstetrics History GPAL:G 0 P 0 0 0 0 Immunizations Vaccine Type Date Status Note Provider Nam e and Address Organization Details Recorded Time HPV9 5 completed [facility] 10/10/2022 18:47:09 IPV 1 completed [facility] 10/10/2022 18:47:09 IPV 2 completed [facility] 10/10/2022 18:47:09 IPV 1 completed [facility] 10/10/2022 18:47:09 MMR 2 completed [facility] 10/10/2022 18:47:09 Tdap 4 completed [facility] 10/10/2022 18:47:09 varicella 2 completed [facility] 10/10/2022 18:47:09 Hep B, unspecified formulation 1 completed [facility] 10/10/2022 18:47:09 HPV, quadrivalent 5 completed [facility] 10/10/2022 18:47:09 HPV, quadrivalent 5 completed [facility] 10/10/2022 18:47:09 Hep B, adolescent or pediatric 1 completed [facility] 10/10/2022 18:47:09 Hep B, adolescent/high risk 1 completed TAMATHA GREEN null, [facility] 10/10/2022 18:47:09 Hep A, ped/adol, 2 dose 5 completed TAMATHA GREEN null, [facility] 10/10/2022 18:47:09 Hep A, ped/adol, 2 dose 4 completed TAMATHA GREEN null, [facility] 10/10/2022 18:47:09 Hib (PRP-T) 1 completed TAMATHA GREEN null, [facility] 10/10/2022 18:47:09 Hib (PRP-T) 2 completed TAMATHA GREEN null, [facility] 10/10/2022 18:47:09 Hib (PRP-T) 1 completed TAMATHA GREEN null, [facility] 10/10/2022 18:47:09 Hib (PRP-T) 1 completed TAMATHA GREEN null, [facility] 10/10/2022 18:47:09 meningococcal MCV4P 8 completed TAMATHA GREEN null, [facility] 10/10/2022 18:47:09 DTaP 1 completed TAMATHA GREEN null, [facility] 10/10/2022 18:47:09 DTaP 2 completed TAMATHA GREEN null, [facility] 10/10/2022 18:47:09 DTaP 1 completed TAMATHA GREEN null, [facility] 10/10/2022 18:47:09 DTaP 1 completed TAMATHA GREEN null, [facility] 10/10/2022 18:47:09 Influenza, split virus, quadrivalent, PF 9 completed JEAN MARIE evangelista [facility]ieC[facility]ie 10/10/2022 18:47:09 Past Encounters Encounter ID Performer Location Encounter Start Date Encounter Closed Date Diagnosis/Indication Diagnosis SNOMED-CT Code Diagnosis ICD10 Code Diagnosis IMO Codes Diagnosis Note [id number] TARIQ NAVARRETE [facility] ([facility]) [address] [place], [place] [address] 03/06/2025 11:08:17 03/06/2025 14:08:52 Acute upper respiratory infection 51226419 J06.9 047988 Disease ca used by Rhinovirus 28486228 B34.8 269181 May use otc meds like zyrtec and fluticason e nasal spray as needed for symptoms. Return to clinic with any new or worsening symptoms. [id number] IAN GRIJALVA [facility] ([facility]) [address] [place], [place] [address] 03/26/2025 13:08:21 03/26/2025 18:49:21 Acute upper respiratory infection 13001465 J06.9 800532 [id number] IAN GRIJALVA [facility] ([facility]) [address] [place], [place] [address] 03/31/2025 12:11:41 03/31/2025 12:33:44 Viral upper respiratory tract infection 681786766 J06.9 332081 [id number] LATANYA PEARSON [facility] ([facility]) [address] [place] [address] 5 04/02/2025 10:49:51 04/02/2025 11:32:10 Bacterial sinusitis 866670835 J32.9 B96.89 8627296 Gestation period, 37 weeks 21852472 Z3A.37 4857309 Uvulitis 470490931 K12.2 92721 Improving Health Concerns Section Related Observation LastModified by Organization Detai ls LastModified Time None Recorded Concern Status LastModified by Organization Details LastModified Time None Recorded Payers Encounter Date Sequence Insurance Name Policy Number Policy Giles Covered Member ID Giles Member ID Guarantor Name 04/02/2025 1 [employer] [place] [place] [id number] Cady Samson [id number] Cady Samson Notes Date Note Type Note Provider Name and Address Organization Details Recorded Time 5 text/html CoughReported by PatientHPIFor severity, patient reportsworseningandpain with coughbut reportsmoderate. For associated symptoms, patient reportsnasal discharge,tiredness,difficu lty swallowing, andhoarsenessbut reportsno fever. For quality, patient reportsproductive. For duration, patient reportssubacute (3-8 weeks). For context, patient reportsnon-smoker. LATANYA PEASRON, [facility] [place], [address], [facility], [place] 04/02/2025 11:24:48 OBGyn Episode No OBEpisode recorded.
--- OUTSIDE RECORDS SUMMARY | 2025-04-20 19:27 | XMS_ITS | Continuity of Care Document ---
Author Organization CHAIM [facility] [place] Zhang, [facility] ([facility]) Address [address] [place] [address] Care Team Providers Care Mac Operator Name Role Phone MICHELBYRON SOUZAN Primary Care Provider Unavailabl e Assessment No assessment recorded. Plan of Treatment Reminders Order Date Submit Date Provider Last Modified By Organization Details Last Modified Time Details Appointments None recorded. Lab pharyngeal pathogens DNA and RNA panel, STACIA+non-pro be, throat 2024 025 RAJINDER [facility] ([facility]), [address] [place], [address], 13:54:30 Referral None recorded. Procedures None recorded. Surgeries None recorded. Imaging None recorded. Medication Orders None recorded. Patient TargetsNo targets recorded. Patient InstructionsNo instructions recorded. Reason for Referral None Reported. Results Created Date Observation Date Name Description Value Unit Range Abnormal Flag Note LastModifiedBy Organization Detail LastModifiedTime 03/06/2003/06/2025 phary ngeal patho gens DNA and RNA panel , STACIA+n on-pr obe, throa t Strep A negati ve Not Available [facility] ([facility]) [address] [place], [address], 03/06/2025 11:10:38 03/06/2003/06/2025 phary ngeal patho gens DNA and RNA panel , STACIA+n on-pr obe, throa t Rhinovirus positi ve Not Available [facility] ([facility]) [address] [place], [address], 03/06/2025 11:10:38 03/06/2003/06/2025 phary ngeal patho gens DNA and RNA panel , STACIA+n on-pr obe, throa t RSV negati ve Not Available [facility] ([facility]) [address] [place] [address], [phone], 03/06/2025 11:10:38 03/06/2003/06/2025 phary ngeal patho gens DNA and RNA panel , STACIA+n on-pr obe, throa t Influenza A negati ve Not Available [facility] ([facility]) [address] [place] [address], [phone], 03/06/2025 11:10:38 03/06/2003/06/2025 phary ngeal patho gens DNA and RNA panel , STACIA+n on-pr obe, throa t Influenza B negati ve Not Available [facility] ([facility]) [address] [place] [address], [phone], 03/06/2025 11:10:38 03/26/2003/26/2025 phary ngeal patho gens DNA and RNA panel , STACIA+n on-pr obe, throa t Strep A negati ve Not Available [facility] ([facility]) [address] [place] [address], [phone], 03/26/2025 13:22:40 03/26/2003/26/2025 phary ngeal patho gens DNA and RNA panel , STACIA+n on-pr obe, throa t Rhinovirus negati ve Not Available [facility] ([facility]) [address] [place] [address], [phone], 03/26/2025 13:22:40 03/26/2003/26/2025 phary ngeal patho gens DNA and RNA panel , STACIA+n on-pr obe, throa t RSV negati ve Not Available [facility] ([facility]) [address] [place] [address], [phone], 03/26/2025 13:22:40 03/26/2003/26/2025 phary ngeal patho gens DNA and RNA panel , STACIA+n on-pr obe, throa t Influenza A negati ve Not Available [facility] ([facility]) [address] [place] [address], [phone], 03/26/2025 13:22:40 03/26/2003/26/2025 phary ngeal patho gens DNA and RNA panel , STACIA+n on-pr obe, throa t Influenza B negati ve Not Available [facility] ([facility]) [address] [place] [address], [phone], 03/26/2025 13:22:40 Result Notes None recorded. Problems Name Problem SNOMED Code Status Onset Date Resolution Date Notes Provider Name and Address Organization Details Recorded Time Anxiety state 364539239 Completed 201909/04/2019 anxiety - Status is Inactive ; 09/04/19 9:36AM by Valerie Mckeon CMT, Annotati on/[place]; Promoted ; acuity set as *; Not Available [facility] 03:15:31 Attentio n deficit hyperact ivity disorder 129902771 Completed 201909/04/2019 ADHD - Status is Inactive ; 09/04/19 9:36AM by Valerie Mckeon CMT, Annotati on/[place]en dum; Promoted ; acuity set as *; Not Available [facility] 3 03:15:35 [facility]ry 63116371 Active 2024 [facility] 5 16:45:48 Gastroes ophageal reflux disease without esophagi tis 614200022 Active 2024 VALERIE MIKE null, [facility], LAllieLAllieCAllie 16:45:50 Problem Notes None recorded. Procedures Surgical History Date Name Laterality Status Provider Name and Address Organization Details Recorded Time 07/22/19 25 plain X-ray of foot completed VALERIE MCKEON [facility], LAllieL.CAllie 07/23/2024 18:53:49 09/12/19 24 US scan of gallbladder completed VALERIE MCKEON [facility], MarzenaL.CAllie 09/12/2023 16:46:42 03/13/20 23 diagnostic radiography of lumbar spine completed MIDDLESEX MIKE [facility], MarzenaLAllieCAllie 03/25/2023 15:14:07 extraction of wisdom tooth completed Ainsley Lock [facility], LAllieLAllieCAllie 12/13/2023 15:01:45 cholecystostomy completed VALERIE MIKE [facility], LAllieLAllieCAllie 07/21/2024 10:25:09 Imaging Results None recorded. Procedure Notes None recorded. Medical Equipment None Reported. Allergies Allergen ID Allergen Name Allergen Category Reaction Reaction Severity Criticality Documentation Date Start Date Code Code System Note Provider Name and Address Organization Details Recorded Time 77764 adhesive tape environme nt,medica tion Not available Not available Not available 12/08/2022 [facility] 16:45:29 62395 latex environme nt,medica tion hives Not available Not available 12/08/2022 54750 91 RxNorm [facility] 16:45:35 Medications Name Sig Start Date Stop [...] Updated DateTime 5 154.94 cm 43.2 kg/m2 253040. 16 g 98 [degF] 98 % 110 /min 138/86 mm[Hg] Valerie Hoyos [facility] 5 13:21:00 Social History Question Answer Notes LastModified by Organizat ion Details LastModified Time Tobacco Smoking Status Never Smoker VALERIE MCKEON jean carlos [facility] 04/25/2023 15:47:12 What Was The Date Of Your Most Recent Tobacco Screening? 03/31/2025 [email or web address] Information not available 03/31/2025 What Is Your Relationship Status? Domestic Partner [email or web address] Information not available 04/25/2023 Sex: Unknown Functional Status Question Answer Note LastModified by Organizat ion Details LastModified Time Do you use any illicit or recreational drugs? No [email or web address] Information not available 04/25/2023 Do you or have you ever used any other forms of tobacco or nicotine? No Information not available 03/24/2024 What is your level of alcohol consumption? Occasional [email or web address] Information not available 12/13/2023 Are you currently employed? Yes [email or web address] Information not available 04/25/2023 Are you able to care for yourself independently? Yes [email or web address] Information not available 04/25/2023 Do you or have you ever used any nicotine-free cigarettes, vape, or chewing tobacco? No Information not available 03/24/2024 Mental Status None recorded. Family History Relationship Description Onset Age of this Age Resolved Age Notes LastModified by Organization Details LastModified Time Father Essential hypertension [email or web address] Not available 15:46:54 Mother Essential hypertension [email or web address] Not available 15:46:54 Medical History Condition Response Anxiety Disorder Y Headaches Y Reflux/GERD Y Hypertension Y Gynecological HistoryNo gynecological history recorded. Obstetrics History GPAL:G 0 P 0 0 0 0 Immunizations Vaccine Type Date Status Note Provider Nam e and Address Organization Details Recorded Time HPV9 5 completed JEAN MARIE evangelista [facility] 10/10/2022 18:47:09 IPV 1 [facility] 10/10/2022 18:47:09 [facility] 2 [facility] 10/10/2022 18:47:09 IPV 1 completed [facility] 10/10/2022 18:47:09 MMR 2 completed TAMATHA [facility] 10/10/2022 18:47:09 Tdap 4 completed [facility] 10/10/2022 18:47:09 varicella 2 completed [facility] 10/10/2022 18:47:09 Hep B, unspecified formulation 1 completed [facility] 10/10/2022 18:47:09 HPV, quadrivalent 5 completed [facility] 10/10/2022 18:47:09 HPV, quadrivalent 5 completed [facility] 10/10/2022 18:47:09 Hep B, adolescent or pediatric 1 [facility] 10/10/2022 18:47:09 Hep B, adolescent/high risk 1 [facility] 10/10/2022 18:47:09 Hep A, ped/adol, 2 dose 5 completed TAMATHA [facility] 10/10/2022 18:47:09 Hep A, ped/adol, 2 dose 4 completed TAMATHA GREEN null, [facility] 10/10/2022 18:47:09 Hib (PRP-T) 1 completed TAMATHA GREEN null, [facility] 10/10/2022 18:47:09 Hib (PRP-T) 2 completed TAMATHA GREEN null, [facility] 10/10/2022 18:47:09 Hib (PRP-T) 1 completed TAMATHA GREEN null, [facility] 10/10/2022 18:47:09 Hib (PRP-T) 1 completed TAMATHA GREEN null, [facility] 10/10/2022 18:47:09 meningococcal MCV4P 8 completed TAMATHA GREEN null, [facility] 10/10/2022 18:47:09 DTaP 1 completed TAMATHA GREEN null, [facility] 10/10/2022 18:47:09 DTaP 2 completed TAMATHA GREEN null, [facility] 10/10/2022 18:47:09 DTaP 1 completed TAMATHA GREEN null, [facility] 10/10/2022 18:47:09 DTaP 1 completed TAMATHA GREEN null, [facility] 10/10/2022 18:47:09 Influenza, split virus, quadrivalent, PF 9 [facility]2022 18:47:09 Past Encounters Encounter ID Performer Location Encounter Start Date Encounter Closed Date Diagnosis/Indication Diagnosis SNOMED-CT Code Diagnosis ICD10 Code Diagnosis IMO Codes Diagnosis Note [id number] CANDIDA PARIKH [facility] ([facility]) [address] [place] [address] 03/06/2025 11:08:17 03/06/2025 14:08:52 Acute upper respiratory infection 85108507 J06.9 578835 Disease ca used by Rhinovirus 88458199 B34.8 716451 May use otc meds like zyrtec and fluticason e nasal spray as needed for symptoms. Return to clinic with any new or worsening symptoms. [id number] CANDIDA MI [facility] ([facility]) [address] [place] [address] 03/26/2025 13:08:21 03/26/2025 18:49:21 Acute upper respiratory infection 25266856 J06.9 522289 Health Concerns Section Related Observation LastModified by Organization Detai ls LastModified Time None Recorded Concern Status LastModified by Organization Details LastModified Time None Recorded Payers Encounter Date Sequence Insurance Name Policy Number Policy Giles Covered Member ID Giles Member ID Guarantor Name 03/26/2025 1 [employer] [place]AC[place] - HMO) [id number] Cady Samson [id number] Cady Samson Notes Date Note Type Note Provider Name and Address Organization Details Recorded Time 03/26/2025 text/html ROS as noted in the HPI Walk in35 & 6 weeks gest.In office x3 weeks ago. Positive for Rhino. Now states cough, green phlegm, congestion, runny nose x1 day. CANDIDA MI [address] [place] [address], [phone], [facility], [place] 03/26/2025 18:45:58 OBGyn Episode No OBEpisode recorded.
--- OUTSIDE RECORDS SUMMARY | 2025-04-20 19:27 | XMS_ITS | Continuity of Care Document ---
Author Organization [facility] Kirby Zhang, [facility] ([facility]) Address [address] [place] [address] Care Team Providers Care Tractor Trailer Driver Name Role Phone MICHELBYRON SOUZAN Primary Care Provider Unavailchela e Assessment No assessment recorded. Plan of Treatment Reminders Order Date Submit Date Provider Last Modified By Organization Details Last Modified Time Details Appointments None record ed. Lab None record ed. Referral None record ed. Procedures None record ed. Surgeries None record ed. Imaging None record ed. Medication Orders None record ed. Patient TargetsNo targets recorded. Patient InstructionsNo instructions recorded. Reason for Referral None Reported. Results Created Date Observation Date Name Description Value Unit Range Abnormal Flag Note LastModifiedBy Organization Detail LastModifiedTime 03/06/2003/06/2025 phary ngeal patho gens DNA and RNA panel , STACIA+n on-pr obe, throa t Strep A negati ve Not Available [facility] ([facility]) [address] [place] [address], [phone], 03/06/2025 11:10:38 03/06/2003/06/2025 phary ngeal patho gens DNA and RNA panel , STACIA+n on-pr obe, throa t Rhinovirus positi ve Not Available [facility] ([facility]) [address] [place], [address], 03/06/2025 11:10:38 03/06/2003/06/2025 phary ngeal patho gens DNA and RNA panel , STACIA+n on-pr obe, throa t RSV negati ve Not Available [facility] ([facility]) [address] [place], [address], 03/06/2025 11:10:38 03/06/2003/06/2025 phary ngeal patho gens DNA and RNA panel , STACIA+n on-pr obe, throa t Influenza A negati ve Not Available [facility] ([facility]) [address] [place] [address], [phone], 03/06/2025 11:10:38 03/06/2003/06/2025 phary ngeal patho gens DNA and RNA panel , STACIA+n on-pr obe, throa t Influenza B negati ve Not Available [facility] ([facility]) [address] [place] [address], [phone], 03/06/2025 11:10:38 03/26/2003/26/2025 phary ngeal patho gens DNA and RNA panel , STACIA+n on-pr obe, throa t Strep A negati ve Not Available [facility] ([facility]) [address] [place] [address], [phone], 03/26/2025 13:22:40 03/26/2003/26/2025 phary ngeal patho gens DNA and RNA panel , STACIA+n on-pr obe, throa t Rhinovirus negati ve Not Available [facility] ([facility]) [address] [place] [address], [phone], 03/26/2025 13:22:40 03/26/2003/26/2025 phary ngeal patho gens DNA and RNA panel , STACIA+n on-pr obe, throa t RSV negati ve Not Available [facility] ([facility]) [address] [place] [address], [phone], 03/26/2025 13:22:40 03/26/20 25 03/26/2025 phary ngeal patho gens DNA and RNA panel , STACIA+n on-pr obe, throa t Influenza A negati ve Not Available [facility] ([facility]) [address] [place] [address], [phone], 03/26/2025 13:22:40 03/26/2003/26/2025 phary ngeal patho gens DNA and RNA panel , STACIA+n on-pr obe, throa t Influenza B negati ve Not Available [facility] ([facility]) [address] [place] [address], [phone], 03/26/2025 13:22:40 Result Notes None recorded. Problems Name Problem SNOMED Code Status Onset Date Resolution Date Notes Provider Name and Address Organization Details Recorded Time Anxiety state 100687418 Completed 201909/04/2019 anxiety - Status is Inactive ; 09/04/19 9:36AM by Valerie Mckeon CMT, Annotati on/Adden dum; Promoted ; acuity set as *; Not Available [facility] 3 03:15:31 Attentio n deficit hyperact ivity disorder 700045837 Completed 201909/04/2019 ADHD - Status is Inactive ; 09/04/19 9:36AM by Valerie Mckeon CMT, Annotati on/Adden dum; Promoted ; acuity set as *; Not Available [facility] 3 03:15:35 [facility] hyperten terry 03906622 Active 2024 VALERIE evangelista [facility] 5 16:45:48 Gastroes ophageal reflux disease without esophagi tis 774591031 Active 2024 VALERIE evangelista [facility] 5 16:45:50 Problem Notes None recorded. Procedures Surgical History Date Name Laterality Status Provider Name and Address Organization Details Recorded Time 07/22/19 plain X-ray of foot completed VALERIE MCKEON [facility], [facility] 07/23/2024 18:53:49 09/12/19 24 US scan of gallbladder completed VALERIE MCKEON [facility], [facility] 09/12/2023 16:46:42 03/13/20 23 diagnostic radiography of lumbar spine completed VALERIE MCKEON [facility], [facility] 03/25/2023 15:14:07 extraction of wisdom tooth completed Ainsleyfabiano Lock [facility], L[facility]ie[facility].C[facility]ie 12/13/2023 15:01:45 cholecystostomy completed VALERIE MCKEON [facility], [facility] 07/21/2024 10:25:09 Imaging Results None recorded. Procedure Notes None recorded. Medical Equipment None Reported. Allergies Allergen ID Allergen Name Allergen Category Reaction Reaction Severity Criticality Documentation Date Start Date Code Code System Note Provider Name and Address Organization Details Recorded Time 35679 adhesive tape environme nt,medica tion Not available Not available Not available 12/08/2022 VALERIE evangelista [facility], [facility] 16:45:29 94240 latex environme nt,medica tion hives Not available Not available 12/08/2022 84413 91 RxNorm VALERIE evangelista [facility], [facility] 16:45:35 Medications Name Sig Start Date Stop [...] Not Available Vitals Date Recorded Body height Oxygen saturation Heart rate Respiratory rate Body temperature Systolic And Diastolic Provider Name and Address Organization Details Last Updated DateTime 5 154.94 cm 98 % 90 /min 16 /min 98.2 [degF] 140/86 mm[Hg] Alicia Alexander [facility] 12:18:31 Social History Question Answer Notes LastModified by Organizat ion Details LastModified Time Tobacco Smoking Status Never Smoker VALERIE MIKE null, [facility] 04/25/2023 15:47:12 What Was The Date Of Your Most Recent Tobacco Screening? 03/31/2025 [email or web address] Information not available 03/31/2025 What Is Your Relationship Status? Domestic Partner [email or web address] Information not available 04/25/2023 Sex: Unknown Functional Status Question Answer Note LastModified by Organizat ion Details LastModified Time Do you use any illicit or recreational drugs? No [email or web address] Information not available 04/25/2023 Do you or have you ever used any other forms of tobacco or nicotine? No Information not available 03/24/2024 What is your level of alcohol consumption? Occasional [email or web address] Information not available 12/13/2023 Are you currently employed? Yes [email or web address] Information not available 04/25/2023 Are you able to care for yourself independently? Yes [email or web address] Information not available 04/25/2023 Do you or have you ever used any nicotine-free cigarettes, vape, or chewing tobacco? No Information not available 03/24/2024 Mental Status None recorded. Family History Relationship Description Onset Age of this Age Resolved Age Notes LastModified by Organization Details LastModified Time Father Essential hypertension [email or web address] Not available 15:46:54 Mother Essential hypertension [email or web address] Not available 15:46:54 Medical History Condition Response Anxiety Disorder Y Headaches Y Reflux/GERD Y Hypertension Y Gynecological HistoryNo gynecological history recorded. Obstetrics History GPAL:G 0 P 0 0 0 0 Immunizations Vaccine Type Date Status Note Provider Nam e and Address Organization Details Recorded Time HPV9 5 completed JEAN MARIE evangelista [facility] 10/10/2022 18:47:09 IPV 1 completed JEAN MARIE evangelista [facility] 10/10/2022 18:47:09 IPV 2 completed JEAN MARIE evnagelista [facility] 10/10/2022 18:47:09 IPV 1 completed TAMATHA GREEN null, [facility] 10/10/2022 18:47:09 MMR 2 completed TAMATHA GREEN null, [facility] 10/10/2022 18:47:09 Tdap 4 completed TAMATHA GREEN null, [facility] 10/10/2022 18:47:09 varicella 2 completed TAMATHA GREEN null, [facility] 10/10/2022 18:47:09 Hep B, unspecified formulation 1 completed TAMATHA GREEN null, [facility] 10/10/2022 18:47:09 HPV, quadrivalent 5 completed TAMATHA GREEN null, [facility] 10/10/2022 18:47:09 HPV, quadrivalent 5 completed TAMATHA GREEN null, [facility] 10/10/2022 18:47:09 Hep B, adolescent or pediatric 1 completed TAMATHA GREEN [facility], [facility] 10/10/2022 18:47:09 Hep B, adolescent/high risk 1 completed TAMATHA GREEN null, [facility] 10/10/2022 18:47:09 Hep A, ped/adol, 2 dose 5 completed TAMATHA GREEN null, [facility] 10/10/2022 18:47:09 Hep A, ped/adol, 2 dose 4 completed TAMATHA GREEN null, [facility] 10/10/2022 18:47:09 Hib (PRP-T) 1 completed TAMATHA GREEN null, [facility] 10/10/2022 18:47:09 Hib (PRP-T) 2 completed TAMATHA GREEN null, [facility] 10/10/2022 18:47:09 Hib (PRP-T) 1 completed TAMATHA GREEN null, [facility] 10/10/2022 18:47:09 Hib (PRP-T) 1 completed TAMATHA GREEN null, [facility] 10/10/2022 18:47:09 meningococcal MCV4P 8 completed TAMATHA GREEN null, [facility] 10/10/2022 18:47:09 DTaP 1 [facility] 10/10/2022 18:47:09 DTaP 2 completed TAMATHA GREEN null, [facility] 10/10/2022 18:47:09 DTaP 1 completed TAMATHA GREEN null, [facility] 10/10/2022 18:47:09 DTaP 1 completed [facility] 10/10/2022 18:47:09 Influenza, split virus, quadrivalent, PF 9 completed TAMATHA GREEN null, [facility] 10/10/2022 18:47:09 Past Encounters Encounter ID Performer Location Encounter Start Date Encounter Closed Date Diagnosis/Indication Diagnosis SNOMED-CT Code Diagnosis ICD10 Code Diagnosis IMO Codes Diagnosis Note [id number] CANDIDA PARIKH [facility] ([facility]) [address] [place] [address] 03/06/2025 11:08:17 03/06/2025 14:08:52 Acute upper respiratory infection 60395057 J06.9 203984 Disease ca used by Rhinovirus 31420923 B34.8 678275 May use otc meds like zyrtec and fluticason e nasal spray as needed for symptoms. Return to clinic with any new or worsening symptoms. [id number] CANDIDA MI [facility] ([facility]) [address] [place] [address] 03/26/2025 13:08:21 03/26/2025 18:49:21 Acute upper respiratory infection 52450192 J06.9 892046 [id number] CANDIDA [place] [facility] ([facility]) [address] [place] [address] 03/31/2025 12:11:41 03/31/2025 12:33:44 Viral upper respiratory tract infection 205015765 J06.9 928710 Health Concerns Section Related Observation LastModified by Organization Detai ls LastModified Time None Recorded Concern Status LastModified by Organization Details LastModified Time None Recorded Payers Encounter Date Sequence Insurance Name Policy Number Policy Glies Covered Member ID Giles Member ID Guarantor Name 03/31/2025 1 [employer] [place] (MEDICA[place] REPLACEMENT - HMO) [id number] Cady Samson [id number] Cady Samson Notes Date Note Type Note Provider Name and Address Organization Details Recorded Time 03/31/2025 text/html Sinusitis/Allerg yRep orted by PatientROS as noted in the HPI walk in patientpatient is here today for sinus congestion, sore throat, and drainage, patient was here on 03/26/25 and negative testing, on 03/06/25 she tested positive for RhinoPatient states that she is not getting any better. [place] [address] [place] [address], [phone], [facility] [place] 03/31/2025 12:32:54 OBGyn Episode No OBEpisode recorded.
--- OUTSIDE RECORDS SUMMARY | 2025-04-20 19:27 | XMS_ITS | Encounter Summary ---
Author Organization [facility] Address [address] [place] [address] Care Team Providers Care Tool Marker Name Role Phone Katheryn Kyle MD Primary Care Provider Unavail able Encounter Details Date Type Department Care Team (Latest Contact Info) Description 11/08/2005 Outpatient Historical [facility] [place] [address] [place] [address] Katheryn Kyle MD NO ADDRESS ON FILE Routine Child Health Exam (Primary Dx); Vaccin for Dtp; Sgt-Xfilol-Kjywo-Rub jessica; Vaccine for poliomyelitis; Vaccine for viral hepatitis Social History Tobacco Use Types Packs/Day Years Used Date Smoking Tobacco: Never Assessed Comments Unknown Sex and Gender Information Value Date Recorded Sex Assigned at Not on file 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 Gender Identity Not on file Sexual Orientation Not on file documented as of this encounter Plan of Treatment Not on file documented as of this encounter Visit Diagnoses Diagnosis Routine child health exam- Primary Routine infant or child health check Need for prophylactic vaccination with combined izfesdnkwk-zmgoowd-tdhpktxtu (DTP) vaccine Need for prophylactic vaccination with uhbvolq-mjuws-gfrlrug (MMR) vaccine Vaccine for poliomyelitis Need for prophylactic vaccination and inoculation against poliomyelitis Vaccine for viral hepatitis Need for prophylactic vaccination and inoculation against viral hepatitis documented in this encounter Care Teams Tool Marker Relationship Specialty Start Date End Date Katheryn Kyle MD PCP - General 05/15/07 documented as of this encounter
--- OUTSIDE RECORDS SUMMARY | 2025-04-20 19:27 | XMS_ITS | Continuity of Care Document ---
Author Organization CHAIM Manzanares [facility] Kirby Zhang, [facility] ([facility]) Address [address] [place] [address] Care Team Providers Care Lieutenant Colonel Name Role Phone MICHELBYRON SOUZAN Primary Care Provider Unavailabl e Assessment No assessment recorded. Plan of Treatment Reminders Order Date Submit Date Provider Last Modified By Organization Details Last Modified Time Details Appointments None recorded. Lab pharyngeal pathogens DNA and RNA panel, STACIA+non-pro be, throat 2024 025 RAJINDER [facility] ([facility]), [address] [place], [address], 11:45:57 Referral None recorded. Procedures None recorded. [...] t Strep A negati ve Not Available [facility] ([facility]) [address] [place], [address], 03/06/2025 11:10:38 03/06/2003/06/2025 phary ngeal patho gens DNA and RNA panel , STACIA+n on-pr obe, throa t Rhinovirus positi ve Not Available [facility] ([facility]) [address] [place], [address], 03/06/2025 11:10:38 03/06/2003/06/2025 phary ngeal patho gens DNA and RNA panel , STACIA+n on-pr obe, throa t RSV negati ve Not Available [facility] ([facility]) [address] [place] [address], [phone], 03/06/2025 11:10:38 03/06/2003/06/2025 phary ngeal patho gens DNA and RNA panel , STACIA+n on-pr obe, throa t Influenza A negati ve Not Available [facility] ([facility]) [address] [place] [address], [phone], 03/06/2025 11:10:38 03/06/2003/06/2025 phary ngeal patho gens DNA and RNA panel , STACIA+n on-pr obe, throa t Influenza B negati ve Not Available [facility] ([facility]) [address] [place] [address], [phone], 03/06/2025 11:10:38 Result Notes None recorded. Problems Name Problem SNOMED Code Status Onset Date Resolution Date Notes Provider Name and Address Organization Details Recorded Time Anxiety state 983668813 Completed 201909/04/2019 anxiety - Status is Inactive ; 09/04/19 9:36AM by Valerie Mckeon CMT, Adriel on/Adden dum; Promoted ; acuity set as *; Not Available [employer] 3 03:15:31 Attentio n deficit hyperact ivity disorder 922574820 Completed 201909/04/2019 ADHD - Status is Inactive ; 09/04/19 9:36AM by Valerie Mckeon CMT, Annotati on/Adden dum; Promoted ; acuity set as *; Not Available [employer] 3 03:15:35 [facility] hyperten terry 61086816 Active 2024 VALERIE MIKE null, [facility] 5 16:45:48 Gastroes ophageal reflux disease without esophagi tis 008635677 Active 2024 VALERIE evangelista [facility] 5 16:45:50 Problem Notes None recorded. Procedures Surgical History Date Name Laterality Status Provider Name and Address Organization Details Recorded Time 07/22/19 25 plain X-ray of foot completed VALERIE MCKEON [facility] 07/23/2024 18:53:49 09/12/19 24 US scan of gallbladder completed VALERIE MIKE [facility] 09/12/2023 16:46:42 03/13/20 23 diagnostic radiography of lumbar spine completed [facility] 03/25/2023 15:14:07 extraction of wisdom tooth completed Ainsley Lock [facility] 12/13/2023 15:01:45 cholecystostomy completed VALERIE MIKE [facility] 07/21/2024 10:25:09 Imaging Results None recorded. Procedure Notes None recorded. Medical Equipment None Reported. Allergies Allergen ID Allergen Name Allergen Category Reaction Reaction Severity Criticality Documentation Date Start Date Code Code System Note Provider Name and Address Organization Details Recorded Time 28104 adhesive tape environme nt,medica tion Not available Not available Not available 12/08/2022 VALERIE evangelista [facility] 16:45:29 25101 latex environme nt,medica tion hives Not available Not available 12/08/2022 38173 91 RxNorm VALERIE evangelista [facility] 16:45:35 Medications Name Sig Start Date Stop [...] Updated DateTime 5 154.94 cm 43.6 kg/m2 938773. 84 g 98 % 113 /min 98.2 [degF] 16 /min Alicia Alexander [facility] 5 11:24:04 Social History Question Answer Notes LastModified by [facility] Details LastModified Time Tobacco Smoking Status Never Smoker [facility] 04/25/2023 15:47:12 What Was The Date Of Your Most Recent Tobacco Screening? 03/31/2025 [email or web address] Information not available 03/31/2025 What Is Your Relationship Status? Domestic Partner [email or web address] Information not available 04/25/2023 Sex: Unknown Functional Status Question Answer Note LastModified by [facility] Details LastModified Time Do you use any illicit or recreational drugs? No Information not available 04/25/2023 Do you or have you ever used any other forms of tobacco or nicotine? No Information not available 03/24/2024 What is your level of alcohol consumption? Occasional [email or web address] Information not available 12/13/2023 Are you currently employed? Yes [email or web address] Information not available 04/25/2023 Are you able to care for yourself independently? Yes [email or web address] Information not available 04/25/2023 Do you or have you ever used any nicotine-free cigarettes, vape, or chewing tobacco? No Information not available 03/24/2024 Mental Status None recorded. Family History Relationship Description Onset Age of this Age Resolved Age Notes LastModified by Organization Details LastModified Time Father Essential hypertension [email or web address] Not available 15:46:54 Mother Essential hypertension [email or web address] Not available 15:46:54 Medical History Condition Response Anxiety Disorder Y Headaches Y Reflux/GERD Y Hypertension Y Gynecological HistoryNo gynecological history recorded. Obstetrics History GPAL:G 0 P 0 0 0 0 Immunizations Vaccine Type Date Status Note Provider Nam e and Address Organization Details Recorded Time [facility]9 [facility], [facility] 10/10/2022 18:47:09 IPV 1 [facility] 10/10/2022 18:47:09 IPV [address] [facility] 10/10/2022 18:47:09 IPV 1 [facility] 10/10/2022 18:47:09 MMR [address] [facility] 10/10/2022 18:47:09 Tdap 4 completed [facility] 10/10/2022 18:47:09 varicella 2 completed [facility] 10/10/2022 18:47:09 Hep B, unspecified formulation [address] [facility] 10/10/2022 18:47:09 HPV, quadrivalent 5 completed [facility] 10/10/2022 18:47:09 HPV, quadrivalent 5 completed [facility] 10/10/2022 18:47:09 Hep B, adolescent or pediatric [address] [facility] 10/10/2022 18:47:09 Hep B, adolescent/high risk infant 1 completed [facility] 10/10/2022 18:47:09 Hep A, ped/adol, 2 dose 5 completed TAMATHA GREEN null, [facility] 10/10/2022 18:47:09 Hep A, ped/adol, 2 dose 4 completed TAMATHA GREEN null, [facility] 10/10/2022 18:47:09 Hib (PRP-T) 1 completed TAMATHA GREEN null, [facility] 10/10/2022 18:47:09 Hib (PRP-T) 2 completed TAMATHA GREEN null, [facility] 10/10/2022 18:47:09 Hib (PRP-T) 1 [facility] 10/10/2022 18:47:09 Hib (PRP-T) 1 completed TAMATHA GREEN [facility] 10/10/2022 18:47:09 meningococcal MCV4P 8 completed TAMATHA GREEN [facility] 10/10/2022 18:47:09 DTaP 1 completed TAMATHA GREEN [facility], [facility] 10/10/2022 18:47:09 DTaP 2 completed TAMATHA GREEN null, [facility] 10/10/2022 18:47:09 DTaP 1 completed TAMATHA GREEN null, [facility] 10/10/2022 18:47:09 DTaP 1 completed TAMATHA GREEN [facility] 10/10/2022 18:47:09 Influenza, split virus, quadrivalent, PF 9 completed JEAN MARIE evangelista [facility] 10/10/2022 18:47:09 Past Encounters Encounter ID Performer Location Encounter Start Date Encounter Closed Date Diagnosis/Indication Diagnosis SNOMED-CT Code Diagnosis ICD10 Code Diagnosis IMO Codes Diagnosis Note [id number] CANDIDA PARIKH [facility] ([facility]) [address] [place] [address] 03/06/2025 11:08:17 03/06/2025 14:08:52 Acute upper respiratory infection 52449554 J06.9 650042 Disease ca used by Rhinovirus 06221084 B34.8 634572 May use otc meds like zyrtec and fluticason e nasal spray as needed for symptoms. Return to clinic with any new or worsening symptoms. Health Concerns Section Related Observation LastModified by Organization Detai ls LastModified Time None Recorded Concern Status LastModified by Organization Details LastModified Time None Recorded Payers Encounter Date Sequence Insurance Name Policy Number Policy Giles Covered Member ID Giles Member ID Guarantor Name 03/06/2025 1 [employer] [place] (MEDICA[place] REPLACEMENT - HMO) [id number] Cady Samson [id number] Cady Samson Notes Date Note Type Note Provider Name and Address Organization Details Recorded Time 03/06/2025 text/html Sore ThroatRepor candelario by [facility] as noted in the HPI walk in patientpatient is here today for sore throat, cough and congestion that started this morning when wakeningpatient is 33 weeks CANDIDA PARIKH [address] [place], [address], [facility] 03/06/2025 12:06:55 OBGyn Episode No OBEpisode recorded.
[2025-04-20 20:47] LABS: Hematocrit 31.9 % (36-47); Hemoglobin 10.20 g/dL (11.27-16.99); Mean Corpuscular HGB Conc 32.0 g/dL (30-55); Mean Corpuscular Hemoglobin 24.8 pg (27-33); Mean Corpuscular Volume 77.4 fl (85-98); Nucleated Red Blood Cells % 0 %; Platelet Count 308 10^3/cmm (157-399); Red Blood Count 4.12 10^6/uL (3.85-5.65); White Blood Count 10.58 10^3/uL (3.29-11.43)
[2025-04-21] VITALS (79 sets, daily range): BP systolic 111–159; BP diastolic 56–97; PULSE 64–108; TEMP 36.7–36.8; BMI 44.1
[2025-04-21] MEDS: ROPivacaine premix 200 MG/100 ML PREMIX 13 MG EPIDURAL ×2 (09:39→15:29)
--- NOTE | 2025-04-21 09:40 | ANES.PREANE2 ---
Pre-Anesthetic Assessment Height/Weight: Height 5 ft 1 in Weight 234 lb Temp Pulse BP O2 Del Method 98.2 F 96 143/81 Room Air 04/21/25 00:16 04/21/25 09:31 04/21/25 09:31 04/21/25 06:46 Preop Diagnosis: IUP Was Beta Tori taken within 24 hours: Yes Was Clonidine taken within 24 hours: N/A Social No alcohol and No tobacco Exam alert, oriented x 3, clear to auscultation bilaterally and regular rate & rhythm Airway Submandibular: within normal limits Cervical ROM: within normal limits Mallampati: Class II Dentition: full Anesthetic Plan ASA status: 3 Anesthesia: Regional (specify below) Other: G2, P1 here in active labor requesting epidural Chronic hypertension noted on labetalol States she has degenerative disc disease in her back and needs an MRI postdelivery for back pain Labs reviewed from today and acceptable for procedure Plan for routine epidural placement Medications/Allergies Home Medications ?Medication ?Instructions ?Recorded ?Confirmed ?Last Taken ?Type omeprazole 20 mg capsule,delayed 20 mg PO DAILY 10/09/23 04/19/25 11/04/23 08:00 History release amitriptyline 10 mg tablet 10 mg PO BEDTIME 11/04/23 04/19/25 11/03/23 History aspirin 81 mg tablet 81 mg PO DAILY 11/10/24 04/19/25 Unknown History labetalol 100 mg tablet 100 mg PO BID 01/14/25 04/19/25 Unknown History magnesium hydroxide 400 mg/5 mL 15 ml PO BID PRN constipation #355 01/14/25 04/19/25 Unknown Rx oral suspension (Milk of Magnesia) mL metoclopramide HCl 5 mg tablet See Rx Instructions .Route 02/09/25 04/19/25 Unknown Rx .COMPLEX #30 tabs Allergies Allergy/AdvReac Type Severity Reaction Status Date / Time Latex, Natural Rubber Allergy Mild ALGY-Rash Verified 04/19/25 08:19 Current Medications Generic Name Dose Route Start Last Admin Trade Name Freq PRN Reason Stop Dose Admin Dextrose/Lactated Ringer's 1,000 mls @ 125 mls/hr 04/20/25 19:48 04/21/25 06:50 Dextrose 5%-Lactated Ringers IV 0 mls/hr .Q8H PRN Infusion per label comments Sodium Chloride 1,000 mls @ 999 mls/hr 04/20/25 19:52 04/21/25 09:20 Sodium Chloride 0.9% IV Infused .Q1H1M PRN Infusion Per L&D Rescitation Protocol Lactated Ringer's 1,000 mls @ 999 mls/hr 04/21/25 08:34 04/21/25 09:38 Lactated Ringers IV 125 mls/hr .Q1H1M PRN Infusion See label comments Ropivacaine 200 mg in 100 mls @ 10 mls/hr 04/21/25 08:45 04/21/25 09:39 Naropin Premix EPIDURAL 10 mls/hr .Q10H IVELISSE Administration PFSH Anesthesia Medical History Psychiatric care Vacuum-assisted vaginal delivery History of chlamydia Gestational hypertension Surgical History Hx of oral surgery Hx of wisdom tooth extraction Family History Grandfather Heart disease Hypertension Diabetes Father Hyperlipidemia Hypertension Mother Hypertension Grandmother Hypertension Stroke Diabetes Denies family history of Colon cancer Ovarian cancer Breast cancer Uterine cancer Thyroid disease Social History Smoking and tobacco/nicotine status: never used tobacco/nicotine Alcohol intake: never Substance/Drug Use: never Female Reproductive History : 2 Data Anesthesia 04/20/25 20:21 Short CBC 04/20/25 Range/Units 20:21 WBC 10.58 (3.29-11.43) 10^3/uL Hgb 10.20 L (11.27-16.99) g/dL Hct 31.9 L (36-47) % MCV 77.4 L (85-98) fl Plt Count 308 (157-399) 10^3/cmm Neut % (Auto) 62.3 % Neut # (Auto) 6.60 (1.8-7.7) 10^3/uL Blood Bank 04/20/25 20:21 Blood Type A Positive Rho(D) Type Rh positive Antibody Screen Negative
--- NOTE | 2025-04-21 09:42 | ANES.PROC ---
Anesthesia Procedures Procedure/Date: 04/21/25 Epidural: Time Out Performed: Yes Consents Signed: Procedure Consent Consent: requested by attending/covering physician and from patient Lumbar Level: L3-L4 Epidural position: sitting Additional Comments: Site was sterilely prepped with ChloraPrep. 1% lidocaine was used to numb the skin. An 18-gauge epidural needle was then introduced until znyr-cy-bjjuaafcxi was achieved around 7 cm to the skin. Epidural catheter was threaded and left at 15 cm nearest to the skin. Test dose was given without result. ETCHER APPRENTICE PHOTOENGRAVING placed. Patient tolerated procedure well. 0.2% ropivacaine set at 13 mL/h
[2025-04-21] MEDS: oxytocin 30 UNIT/500 ML BAG IV (10:01)
--- NOTE | 2025-04-21 10:45 | PM.OBGYHP ---
Providers/Chief Complaint Admitting Physician: Angie Dunham MD Primary COMMUNITY ENGAGEMENT MANAGER: Manfred Vides MD Primary Care Provider: CANIDDA Sloan Chief Complaint: IOL HPI COMMUNITY ENGAGEMENT MANAGER History of Present Illness Cady Samson is a 24 year old female admitted on April 20, 2025, at 2000 24 y.o. EDC April 24, 2025 At 39 w 3 d h/o chronic hypertension on labetolol admitted for induction of labor BPs have been well-controlled has been uncomplicated so far No c/o + movements Present Details : 2 Para: 1 Labs Rubella: Immune RPR: Negative GBS: Negative Medications/Allergies Home Medications ?Medication ?Instructions ?Recorded ?Confirmed ?Last Taken ?Type omeprazole 20 mg capsule,delayed 20 mg PO DAILY 10/09/23 04/22/25 11/04/23 08:00 History release amitriptyline 10 mg tablet 10 mg PO BEDTIME 11/04/23 04/22/25 11/03/23 History labetalol 100 mg tablet 100 mg PO BID 01/14/25 04/22/25 Unknown History magnesium hydroxide 400 mg/5 mL 15 ml PO BID PRN constipation #355 01/14/25 04/22/25 Unknown Rx oral suspension (Milk of Magnesia) mL metoclopramide HCl 5 mg tablet See Rx Instructions .Route 02/09/25 04/22/25 Unknown Rx .COMPLEX #30 tabs Allergies Allergy/AdvReac Type Severity Reaction Status Date / Time Latex, Natural Rubber Allergy Mild ALGY-Rash Verified 04/19/25 08:19 PFSH COMMUNITY ENGAGEMENT MANAGER PFSH: Medical History (Updated 04/22/25 @ 08:15 by Manfred Vides MD) Psychiatric care Vacuum-assisted vaginal delivery History of chlamydia Gestational hypertension Surgical History Hx of oral surgery Hx of wisdom tooth extraction Family History Grandfather Heart disease Hypertension Diabetes Father Hyperlipidemia Hypertension Mother Hypertension Grandmother Hypertension Stroke Diabetes Denies family history of Colon cancer Ovarian cancer Breast cancer Uterine cancer Thyroid disease Social History Smoking and tobacco/nicotine status: never used tobacco/nicotine Alcohol intake: never Substance/Drug Use: never History History History 2 Term 1 0 Miscarriages/Ectopic 0 Living Children 2 Past Pregnancies Del. Date GA/Weeks Outcome Route Wt Inf Gender Labor Lgth Comp. Anesthesia Location 11/09/21 40 live - full term Vaginal 6 lb Female [facility] Dr. Lozano 04/21/25 39 live - full term Vaginal 6 lb 6 oz Female Other formerly [facility] Dr. Vides Delivery Date: 11/09/21 Last Updated by: Erendira New CNA vacuum assisted vaginal delivery for nonreassuring heart tones during pushing, second degree right labial wall tear and second degree left labial wall tear that were repaired Delivery Date: 04/21/25 Last Updated by: Erendira New CNA retained placenta requiring manual removal Care MT Calculator Estimated Delivery Date Method Current WG Current Estimate 04/24/25 Ultrasound #1 40w 1d Specific Issues/Plans CHRONIC HYPERTENSION: labetalol BID, early CMP and 24 hr urine, start aspirin therapy at 12 weeks NAUSEA AND VOMITING: reglan sent OBESITY BMI > 41% Vitals/I&O/Wt Last Vital Signs Temp 97.6 F 04/22/25 20:06 Pulse 87 04/22/25 20:06 Resp 16 04/22/25 08:00 BP 123/81 04/22/25 20:06 Pulse Ox 98 04/22/25 20:06 O2 Del Method Room Air 04/22/25 08:00 Physical Exam Narrative: Weight 230 lbs; 5?1?, BMI 43 VS normal General comfortable, awake, alert Lungs: clear Cor: RRR FH 37 cm; cephalic Cervix: 1 / long / -3 Ext: no edema External monitor: heart tracing good variability, + accelerations Urinary Catheter Management: Hanks Latex Free: Cath Placed During This Visit: yes, but has since been removed by the nurse Reason for Continuing Indwelling Catheter: Decision to DC Catheter Urinary Catheter Date of Insertion: 04/21/25 Urinary Catheter Time of Insertion: 10:00 Date Urinary Catheter Removed: 04/21/25 Time Urinary Catheter Discontinued: 18:20 Data 04/22/25 05:50 Results Labs OB ([facility]): Obstetrics US 03/15/25 Blood Type A Positive 04/20/25 Antibody Screen Negative 04/20/25 Hct, (36-47) 29.8 % L 04/22/25 Hgb, (11.27-16.99) 9.50 g/dL L 04/22/25 Rho(D) Type Rh positive 04/20/25 Plt Count, (157-399) 263 10^3/cmm 04/22/25 Hep Bs Antigen, (Nonreactive) Non-reactive 10/08/24 Hepatitis C Antibody, (Nonreactive) Non-reactive 10/08/24 Rubella IgG Antibody, (0.0-10.0) 63.1 IU/mL H 10/08/24 RPR, (Nonreactive) Nonreactive 10/08/24 HIV 1&2 Ab & HIV 1 Ag, (Non-Reactiv) Non-reactive 10/08/24 TSH, (0.27-4.20) 2.34 uIU/mL 10/08/24 Gest Glucose Tolerance mg/dL 02/01/25 HCG, Qual, (Negative) Positive H 09/22/24 Urine Opiates Screen, (Negative) Negative ng/mL 10/08/24 Ur Barbiturates Screen, (Negative) Negative ng/mL 10/08/24 Ur Phencyclidine Scrn, (Negative) Negative ng/mL 10/08/24 Ur Amphetamines Screen, (Negative) Negative ng/mL 10/08/24 U Benzodiazepines Scrn, (Negative) Negative ng/mL 10/08/24 Urine Cocaine Screen, (Negative) Negative ng/mL 10/08/24 U Marijuana (THC) Screen, (Negative) Negative ng/mL 10/08/24 Micro Urine Specimen 10/08/24 Pap Smear Interpret See note 10/16/24 A&P Assessment and plan 1. , unspecified gestational age: 39 w 3 d Fetus reassuring Admit for induction of labor 2. Chronic hypertension: BPs have been normal growth has been normal admit for induction of labor PDMP PDMP Reviewed: Not Reviewed Attestations Medical Necessity Statement*: patient at 39 w 3 d with chronic hypertension on labetolol, admitted for induction of labor Coding Level of Care Code Acute Code for Chg Fwd Diagnoses , unspecified gestational age Z34.90 Weeks of gestation: unspecified Chronic hypertension I10
[2025-04-21] MEDS: ondansetron 2 mg/ML SDV 2 mL 4 MG IVP (16:03)
--- NOTE | 2025-04-21 19:35 | PM.DELIVERY ---
Delivery Note: Date of delivery: April 21, 2025 Pre-delivery diagnoses: 39 weeks gestation chronic hypertension induction of labor Post-delivery diagnoses: 39 weeks gestation chronic hypertension induction of labor vaginal delivery retained placenta requiring manual removal Procedure: induction of labor vaginal delivery manual removal of retained placenta Op report anesthesia: Epidural Delivering Physician: Manfred Vides MD Estimated blood loss (mL): 300 Findings: , vigorous female cord gases obtained normal three-vessel cord adherent placenta requiring manual removal, appears grossly complete and fibrous manual exploration of uterine cavity was clear or tissue and clots no episiotomy / lacerations no active bleeding EBL: 300 cc Pre-Delivery Course: normal labor course fetus was reassuring throughout Delivery: vaginal Post-Delivery Status: stable History History History 2 Term 1 0 Miscarriages/Ectopic 0 Living Children 1 A&P Assessment and plan 1. Vaginal delivery: PDMP PDMP Reviewed: Not Reviewed Coding Level of Care Code Acute Code for Chg Fwd Diagnoses Vaginal delivery O80
--- OUTSIDE RECORDS SUMMARY | 2025-04-21 20:47 | XMS_ITS | Clinical Summary ---
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 TENDER Gender Identity Not on file Sexual Orientation Not on file Last Filed Vital Signs Vital Sign Reading Time Taken Comments Blood Pressure 111/77 08/05/2017 8:36 AM CDT Pulse 76 08/05/2017 8:36 AM CDT Temperature - - Respiratory Rate - - Oxygen Saturation 100% 08/05/2017 8:36 AM CDT Inhaled Oxygen Concentration - - Weight 63.5 kg (140 lb) 03/18/2017 3:06 PM EXHAUST TENDER Height 154.9 cm (5' 1 ) 03/18/2017 3:06 PM EXHAUST TENDER Body Mass Index 26.45 03/18/2017 3:06 PM EXHAUST TENDER Plan of Treatment Health Maintenance Due Date Last Done Comments DTAP/TDAP/TD VACCINES (6 - Tdap) 08/05/2011 11/08/2005, 11/04/2001, 04/21/2001, Additional history exists HPV VACCINES (1 - 3-dose series) 08/05/2015 CERVICAL CANCER SCREENING 2021 HPV/Cotest (21-29) 2021 PAP SMEAR 2021 INFLUENZA VACCINE (#1) 2024 HEPATITIS B VACCINES Completed 04/21/2001, 2000, 2000 Insurance [facility] [address] [place] [place] [address] [facility] Care Teams Director Social Service Relationship Specialty Start Date End Date Katheryn Kyle MD PCP - General 05/15/07
--- OUTSIDE RECORDS SUMMARY | 2025-04-21 20:47 | XMS_ITS | Encounter Summary ---
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 Gender Identity Not on file Sexual Orientation Not on file documented as of this encounter Plan of Treatment Not on file documented as of this encounter Results * XR PANOREX (04/03/2017 1:34 PM AIRCRAFT CLEANER) Anatomical Region Laterality Modality Head Computed Radiogr aphy Narrative 04/11/2017 2:44 PM AIRCRAFT CLEANER Impacted third molars Condyle seated in the fossa No signs of any bony pathology No signs of any infection Jean-Paul Perez Jr., DMD DIAGNOSTIC IMAGING ORDERABLES Final Result documented in this encounter Visit Diagnoses Diagnosis Impacted teeth with abnormal position Disturbances in tooth eruption Impacted teeth with abnormal position Disturbances in tooth eruption documented in this encounter Care Teams Sales And Marketing Director Relationship Specialty Start Date End Date Katheryn Kyle MD PCP - General 05/15/07 documented as of this encounter
--- OUTSIDE RECORDS SUMMARY | 2025-04-21 20:47 | XMS_ITS | Encounter Summary ---
Author Organization [facility] Address [address] [place] [address] Care Team Providers Care Hearth Feeder Name Role Phone Katheryn Kyle MD Primary Care Provider Unavail able Encounter Details Date Type Department Care Team (Latest Contact Info) Description 11/08/2005 Outpatient Historical [facility] [place] [address] [place] [address] Katheryn Kyle MD NO ADDRESS ON FILE Routine Child Health Exam (Primary Dx); Vaccin for Dtp; Stm-Zgdawo-Iokps-Rub jessica; Vaccine for poliomyelitis; Vaccine for viral hepatitis Social History Tobacco Use Types Packs/Day Years Used Date Smoking Tobacco: Never Assessed Comments Unknown Sex and Gender Information Value Date Recorded Sex Assigned at Not on file 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 Gender Identity Not on file Sexual Orientation Not on file documented as of this encounter Plan of Treatment Not on file documented as of this encounter Visit Diagnoses Diagnosis Routine child health exam- Primary Routine or child health check Need for prophylactic vaccination with combined mqrqqgbgkp-afziqwl-pcaalamyv (DTP) vaccine Need for prophylactic vaccination with clinfei-wkytr-kbahxlr (MMR) vaccine Vaccine for poliomyelitis Need for prophylactic vaccination and inoculation against poliomyelitis Vaccine for viral hepatitis Need for prophylactic vaccination and inoculation against viral hepatitis documented in this encounter Care Teams Hearth Feeder Relationship Specialty Start Date End Date Katheryn Kyle MD PCP - General 05/15/07 documented as of this encounter
--- OUTSIDE RECORDS SUMMARY | 2025-04-21 20:48 | XMS_ITS | Encounter Summary ---
Author Organization [facility] Address [address] [place] [address] Care Team Providers Care Box Maker Wood Name Role Phone Katheryn Kyle MD Primary Care Provider Unavail able Encounter Details Date Type Department Care Team (Latest Contact Info) Description 03/27/2005 Outpatient Historical [facility] [place] [address] [place] [id number] Katheryn Kyle MD NO ADDRESS ON FILE NONINFEC GASTROENTERIT NEC (Primary Dx) Social History Tobacco Use Types Packs/Day Years Used Date Smoking Tobacco: Never Assessed Comments Unknown Sex and Gender Information Value Date Recorded Sex Assigned at Not on file Legal 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
[2025-04-22 00:30] VITALS: BP 110/69; PULSE 69
[2025-04-22 02:30] VITALS: BP 117/70; PULSE 60; RESP 16
[2025-04-22 04:30] VITALS: BP 110/68; PULSE 68; TEMP 36.8
[2025-04-22] MEDS: PRENATAL VIT NO.130/IRON/FOLIC 1 EACH TABLET PO (05:29)
[2025-04-22] MEDS: ferrous sulfate EC 325 mg Tablet PO (05:29)
[2025-04-22 05:54] LABS: Hematocrit 29.8 % (36-47); Hemoglobin 9.50 g/dL (11.27-16.99); Mean Corpuscular HGB Conc 31.9 g/dL (30-55); Mean Corpuscular Hemoglobin 25.3 pg (27-33); Mean Corpuscular Volume 79.3 fl (85-98); Platelet Count 263 10^3/cmm (157-399); Red Blood Count 3.76 10^6/uL (3.85-5.65); White Blood Count 13.54 10^3/uL (3.29-11.43)
[2025-04-22 08:00] VITALS: BP 123/81; PULSE 80; RESP 16; TEMP 36.8; O2SAT 99
--- NOTE | 2025-04-22 14:05 | P.PN_ITS ---
SPRING TESTER Subjective 2 Subjective: Interval history: no c/o no bleeding, pain eating, voiding, ambulating well no dizziness, weakness, palpitations, shortness of breath caring for without any problems Labor: Station: +2 Amniotic Membrane Status: Intact Monitor Mode: External Contraction Pattern: Regular Vitals/I&O/Wt Last Vital Signs Temp 97.6 F 04/22/25 20:06 Pulse 87 04/22/25 20:06 Resp 16 04/22/25 08:00 BP 123/81 04/22/25 20:06 Pulse Ox 98 04/22/25 20:06 O2 Del Method Room Air 04/22/25 08:00 Physical Exam 2 Narrative: afebrile, VS normal comfortable, awake, alert Lungs: clear Cor: RRR Abd: soft, nontender. fundus firm Ext: no edema; nontender Hgb 9.5 Urinary Catheter Management: Hanks Latex Free: Cath Placed During This Visit: yes, but has since been removed by the nurse Reason for Continuing Indwelling Catheter: Decision to DC Catheter Urinary Catheter Date of Insertion: 04/21/25 Urinary Catheter Time of Insertion: 10:00 Date Urinary Catheter Removed: 04/21/25 Time Urinary Catheter Discontinued: 18:20 Data 04/22/25 05:50 A&P Assessment and plan 1. Vaginal delivery: PPD #1 doing well discharge to home today instructions and precautions given call/return if fever, chills, headache, blurry vision, nausea, vomiting, abdominal pain; vaginal bleeding or discharge; shortness of breath, chest pain, leg pains or swelling; inability to void, perineal pain or swelling; feelings of depression or mood changes; thoughts of suicide or harming others; inability to care for baby. f/u in 6 weeks or PRN 2. Anemia: encouraged iron 1-2 tabs / day eat iron- and protein-rich foods call or go to ER if dizziness, weakness, chest pain, palpitations, shortness of breath PDMP PDMP Reviewed: Not Reviewed Attestations 2 Medical Necessity Statement*: patient s/p vaginal delivery, plan to discharge to home today Coding Level of Care Code Acute Code for Chg Fwd Diagnoses Vaginal delivery O80 Anemia D64.9
--- NOTE | 2025-04-22 15:10 | PM.OBGYDC ---
Discharge Providers STAFF RADIOLOGIST Date of Admission: 04/20/20251999 Date of Discharge: 04/22/25 Attending Provider at Admission: Angie Dunham MD Attending Provider at Discharge: Manfred Vides MD Consults: none Primary STAFF RADIOLOGIST: Manfred Vides MD Primary Care Provider: CANDIDA Sloan Diagnoses at Discharge Discharge Diagnosis 1. Vaginal delivery: Details from hospital stay: 24 y.o. [facility] April 24, 2025 At 39 w 3 d h/o chronic hypertension on labetolol admitted for induction of labor patient progressed in labor delivered vaginally with no episiotomy or lacerations fetus was reassuring throughout retained placenta required manual removal there were no complications patient did well and was discharged to home on the first day 2. Anemia: Reason for Visit Reason for Visit: IOL Brief History: 24 y.o. [facility] April 24, 2025 At 39 w 3 d h/o chronic hypertension on labetolol admitted for induction of labor Hospital Course Hospital Course 24 y.o. [facility] April 24, 2025 At 39 w 3 d h/o chronic hypertension on labetolol admitted for induction of labor patient progressed in labor delivered vaginally with no episiotomy or lacerations fetus was reassuring throughout retained placenta required manual removal there were no complications patient did well and was discharged to home on the first day Information Peripartum Data: Infant Delivery Method: Vaginal Physical Exam Narrative: afebrile, VS normal comfortable, awake, alert Lungs: clear Cor: RRR Abd: soft, nontender. fundus firm Ext: no edema; nontender Urinary Catheter Management: Hanks Latex Free: Cath Placed During This Visit: yes, but has since been removed by the nurse Reason for Continuing Indwelling Catheter: Decision to DC Catheter Urinary Catheter Date of Insertion: 04/21/25 Urinary Catheter Time of Insertion: 10:00 Date Urinary Catheter Removed: 04/21/25 Time Urinary Catheter Discontinued: 18:20 History History History 2 Term 1 0 Miscarriages/Ectopic 0 Living Children 2 Past Pregnancies Del. Date GA/Weeks Outcome Route Wt Inf Gender Labor Lgth Comp. Anesthesia Location 11/09/21 40 live - full term Vaginal [address] [facility] Dr[address] Lozano 04/21/25 39 live - full term Vaginal 6 lb 6 oz Female Other [facility] Dr. Vides Delivery Date: 11/09/21 Last Updated by: Erendira New CNA vacuum assisted vaginal delivery for nonreassuring heart tones during pushing, second degree right labial wall tear and second degree left labial wall tear that were repaired Delivery Date: 04/21/25 Last Updated by: Erendira New CNA retained placenta requiring manual removal Discharge Data Studies Completed and Pending Laboratory Results WBC 13.54 10^3/uL (3.29-11.43) H 04/22/25 05:50 RBC 3.76 10^6/uL (3.85-5.65) L 04/22/25 05:50 Hgb 9.50 g/dL (11.27-16.99) L 04/22/25 05:50 Hct 29.8 % (36-47) L 04/22/25 05:50 MCV 79.3 fl (85-98) L 04/22/25 05:50 MCH 25.3 pg (27-33) L 04/22/25 05:50 MCHC 31.9 g/dL (30-55) 04/22/25 05:50 RDW 14.3 % (12.1-15.1) 04/22/25 05:50 Plt Count 263 10^3/cmm (157-399) 04/22/25 05:50 MPV 9.5 fL (7.4-10.4) 04/22/25 05:50 Neut % (Auto) 62.3 % 04/20/25 20:21 Lymph % (Auto) 27.5 % 04/20/25 20:21 [place] % (Auto) 6.5 % 04/20/25 20:21 Eos % (Auto) 2.6 % 04/20/25 20:21 Baso % (Auto) 0.3 % 04/20/25 20:21 Neut # (Auto) 6.60 10^3/uL (1.8-7.7) 04/20/25 20:21 Lymph # (Auto) 2.9 10^3/uL (0.8-4.8) 04/20/25 20:21 [place] # (Auto) 0.7 10^3/uL (0.2-0.9) 04/20/25 20:21 Eos # (Auto) 0.3 10^3/uL (0.0-0.8) 04/20/25 20:21 Baso # (Auto) 0.0 10^3/uL (0.0-0.1) 04/20/25 20:21 Nucleated RBC % (auto) 0 % 04/20/25 20:21 Nucleated RBCs # 0.0 /100WBC 04/20/25 20:21 Blood Type A Positive 04/20/25 20:21 Rho(D) Type Rh positive 04/20/25 20:21 Antibody Screen Negative 04/20/25 20:21 Procedures Performed induction of labor vaginal delivery manual removal of placenta Vitals Last Vital Signs Temp 97.6 F 04/22/25 20:06 Pulse 87 04/22/25 20:06 Resp 16 04/22/25 08:00 BP 123/81 04/22/25 20:06 Pulse Ox 98 04/22/25 20:06 O2 Del Method Room Air 04/22/25 08:00 Results Labs OB ([facility]): Obstetrics US 03/15/25 Blood Type A Positive 04/20/25 Antibody Screen Negative 04/20/25 Hct, (36-47) 29.8 % L 04/22/25 Hgb, (11.27-16.99) 9.50 g/dL L 04/22/25 Rho(D) Type Rh positive 04/20/25 Plt Count, (157-399) 263 10^3/cmm 04/22/25 Hep Bs Antigen, (Nonreactive) Non-reactive 10/08/24 Hepatitis C Antibody, (Nonreactive) Non-reactive 10/08/24 Rubella IgG Antibody, (0.0-10.0) 63.1 IU/mL H 10/08/24 RPR, (Nonreactive) Nonreactive 10/08/24 HIV 1&2 Ab & HIV 1 Ag, (Non-Reactiv) Non-reactive 10/08/24 TSH, (0.27-4.20) 2.34 uIU/mL 10/08/24 Gest Glucose Tolerance mg/dL 02/01/25 HCG, Qual, (Negative) Positive H 09/22/24 Urine Opiates Screen, (Negative) Negative ng/mL 10/08/24 Ur Barbiturates Screen, (Negative) Negative ng/mL 10/08/24 Ur Phencyclidine Scrn, (Negative) Negative ng/mL 10/08/24 Ur Amphetamines Screen, (Negative) Negative ng/mL 10/08/24 U Benzodiazepines Scrn, (Negative) Negative ng/mL 10/08/24 Urine Cocaine Screen, (Negative) Negative ng/mL 10/08/24 U Marijuana (THC) Screen, (Negative) Negative ng/mL 10/08/24 Micro Urine Specimen 10/08/24 Pap Smear Interpret See note 10/16/24 Discharge Plan Discharge Patient Disposition: Home Condition: Stable Prescriptions: Continued labetalol 100 mg tablet 100 mg PO BID magnesium hydroxide [Milk of Magnesia] 400 mg/5 mL suspension 15 ml PO BID PRN (Reason: constipation) Qty: 355 1RF Rx Instructions: take twice daily omeprazole 20 mg capsule,delayed release(DR/EC) 20 mg PO DAILY metoclopramide HCl 5 mg tablet See Rx Instructions .ROUTE .COMPLEX Qty: 30 1RF Dose Instruction: TAKE 1 TABLET BY MOUTH EVERY DAY Rx Instructions: TAKE 1 TABLET BY MOUTH EVERY DAY amitriptyline 10 mg Tablet 10 mg PO BEDTIME Discontinued aspirin 81 mg tablet 81 mg PO DAILY Discharge Order = DC NOW: Discharge Order (Routine); Ordered 04/22/25 Ordered By: Manfred Vides Referrals: Manfred Vides MD [Physician, STAFF RADIOLOGIST] - 05/14/25 10:45 am Referral Note: Follow up appointment Discharge Diet: Usual diet Discharge Activity: Resume usual activity Patient Instructions: Depression (DC), Preeclampsia and Eclampsia After Delivery (GEN), Hemorrhage (DC), OB Discharge Report, OB Food/Drug Interaction Guide, Opioid Safety, OB Home Care, Patient Portal & Ronnie Instructions, Abnormal Bleeding Discharge Attestations STAFF RADIOLOGIST Time Spent in Discharge Care*: less than 30 min Coding Level of Care Code Acute Code for Chg Fwd Diagnoses Vaginal delivery O80 Anemia D64.9
--- NOTE | 2025-04-22 15:25 | ANE.PACU2 ---
Inpatient post-anesthesia follow up: Airway intact: Yes Vital signs: Temperature 98.3 F Pulse Rate 80 Respiratory Rate 16 Blood Pressure 123/81 Pulse Oximetry 99 Oxygen Delivery Me thod Room Air Oxygen Flow Rate Fraction of Inspir ed Oxygen Hydration adequate: Yes Nausea and vomiting: No Pain level: 1 Mental status: Baseline Epidural Start/End: Epidural Start Date: 04/21/25 Epidural Start Time: 09:28 Epidural End Date: 04/22/25 Epidural End Time: 00:40
[2025-04-22 20:06] VITALS: BP 123/81; PULSE 87; TEMP 36.4; O2SAT 98
== END 2025-04-22 20:00 | disposition home or self-care (01) | DRG 560 ==
PROVIDERS: Obstetrics & Gynecology; Admitting Provider Obstetrics & Gynecology; PCP Nurse Practitioner Family; Visit Provider Obstetrics & Gynecology
DX: O10.92 Unspecified pre-existing hypertension complicating childbirth (principal); O73.0 Retained placenta without hemorrhage; Z3A.39 39 weeks gestation of pregnancy; Z37.0 Single live birth; O90.81 Anemia of the puerperium; D64.9 Anemia, unspecified
CPT/HCPCS: 36415; 51702; 59025; 59409; 85025; 85027; 86850; 86900; 96374; G0378; G0379; J2405; J2590; J2795; J3490; J7030; J7120; J7121; J9999